=== PATIENT | male | born 1940 | race Caucasian/White ===

== ENCOUNTER → 2017-12-24 01:13 | Outpatient (CLI) | payer MEDICARE, OTHER, SELFPAY ==
--- NOTE | 2018-01-09 08:11 | ZIOP_ITS ---
ZIO PATCH MONITOR REPORT PRESCRIBING CLINICIAN Bere Mane M.D. ENROLLMENT December 24, 2017 until January 02, 2018 FINDINGS 1. Baseline sinus rhythm, 59-133 beats per minute, average 85 beats per minute. 2. Occasional PAC, 4.4%, frequent SVT runs, 215 total, fastest 203 beats per minute for 7 beats, longest 18 beats at 108 beats per minute. No AF. 3. Occasional PVC, 2.8%, no VT. 4. No significant pauses. 5. No symptoms recorded. Faith Bell M.D. DURGA/robert T - 01/09/2018
== END ==
PROVIDERS: PCP Physician Assistant Medical; Visit Provider Psychiatry & Neurology Neurology
DX: I47.1 Supraventricular tachycardia (principal); I49.1 Atrial premature depolarization; I49.3 Ventricular premature depolarization; I63.8 Other cerebral infarction
CPT/HCPCS: 0296T; 93225

== ENCOUNTER → 2018-01-08 15:25 | Outpatient (CLI) | payer MEDICARE, OTHER, SELFPAY | PROVIDERS: PCP Physician Assistant Medical; Visit Provider Internal Medicine Cardiovascular Disease | DX: I47.1 Supraventricular tachycardia (principal); I49.1 Atrial premature depolarization; I49.3 Ventricular premature depolarization; I63.8 Other cerebral infarction | CPT/HCPCS: 0298T ==

== ENCOUNTER 2018-03-13 18:45 | Emergency (ER) | payer MEDICARE, OTHER, SELFPAY ==
[2018-03-13] VITALS (17 sets, daily range): BP systolic 127–148; BP diastolic 66–104; PULSE 75–106; RESP 12–28; TEMP 36.9–37; O2SAT 95–100
--- NOTE | 2018-03-13 18:59 | DI.CT_ITS ---
SYMPTOMS/DIAGNOSIS: WEAKNESS, EMOTIONAL LABILITY, ? STROKE NONCONTRAST HEAD CT: Comparison is made with April,. No intracranial hemorrhage, mass or acute infarct is seen. There is no change in moderate atrophy and severe white matter changes of small vessel disease. Basal ganglia and lacunar infarcts are also unchanged. There is an air-fluid level in the right maxillary sinus. IMPRESSION: Right maxillary sinus disease. No acute intracranial abnormality.
[2018-03-13 19:16] LABS: BE (Venous) -0.6 mmol/L (-3-3); HCO3 (Venous) 24 mmol/L (22-28); O2 Sat (Venous) 96 % (70-80); TCO2 (Venous) 21 mmol/L (22-29); pCO2 (Venous) 38 mm/Hg (34-47); pH (Venous) 7.41 (7.32-7.43); pO2 (Venous) 76 mm/Hg (28-44)
--- NOTE | 2018-03-13 19:16 | ED.GENADUL_ITS ---
Discharge Plan Disposition Patient Disposition: HOME Condition: Good Discharge Details Chief Complaint: CVA/TIA Clinical Impression: Weakness, Acute dehydration Primary Care Provider: Kathy Cardoza ED Provider: Brendan Puga Home Meds and New Rx's Prescriptions: No Action bisoprolol fumarate 5 MG tablet 2.5 mg PO DAILY Qty: 30 RF: 11 clopidogrel [Plavix] 75 MG tablet 75 mg PO DAILY Qty: 30 RF: 0 Discharge Instructions Instructions: Weakness (ED) Additional Instructions: Please continue taking your Plavix and bisoprolol as directed. If you notice any worsening of your symptoms, or any new symptoms such as vomiting, diarrhea, fever, chills, shortness of breath, chest pain, numbness, weakness, or fainting , please return immediately to the emergency department for reevaluation. Please follow up with your primary care provider as soon as possible for reassessment and reevaluation. As always, it was a pleasure participating in your medical care today. Referrals: Kathy Cardoza PA [Primary Care Provider] - Medical Decision Making This is a 77-year-old male with a past medical history of stroke and TIA, who presents today with a friend for difficulty speaking, questionable weakness, and increased emotional lability. Patient does take a daily Plavix. He denies any falls or trauma. The exact onset of his initial symptoms is unknown. While the patient states that he feels absolutely fine, friends and people who live nearby state that his symptoms may have begun 24-48 hours ago, but some were noticing changes in his speech and movement 1-2 weeks ago. Currently the patient's physical exam is relatively benign. No focal neurologic deficits. Patient does appear slightly confused but he is a and O x4 , and demonstrates an NIH stroke scale of 0. Patient is clearly not a candidate for TPA due to the timing, and lack of current symptoms. We will perform laboratory workup to evaluate for any potential metabolic or ischemic etiology for symptoms. At this time though with a normal neurologic exam, the ability to perform his ADLs I do not see any current indication for inpatient management. EKG 18: 59 Rate 88, RI 156, QTc 421, QRS 98, sinus rhythm, no significant ST elevations or depressions, no T wave inversions, no Q waves. Normal EKG IMPRESSION: 1. No acute intracranial abnormality. 2. Global cerebral atrophy and probable small vessel disease, unchanged. 3. Old Basal ganglia lacunar infarcts and old left centrum semiovale infarct. 4. Fluid level within the right maxillary sinus which may be seen with acute sinusitis. 8:16 PM Patient's laboratory workup has returned, and there are no significant abnormalities noted. Normal white count, no significant electrolyte abnormalities, VBG demonstrates no evidence of CO2 retention. Calcium is normal. Troponin and EKG are benign as well as a TSH. Urinalysis shows no evidence of urinary tract infection. Mild dehydration is noted. Salicylates, UDS, and acetaminophen are normal. CT head does demonstrate evidence of chronic acute strokes, but no evidence of acute infarct. Patient's repeat neurologic exam continues to show no slurring of his speech, no focal neurologic deficits. Normal workup, no evidence of significant infection I do feel that he can be safely discharged home but does require close follow-up with his primary care provider. Patient does feel much better after some IV fluids. He is certainly regained his spark. He is on Plavix and I feel that he should continue this. Feel that his symptoms are most likely chronic in nature, and perhaps secondary to his chronic old strokes rather than an acute process. I discussed potential red flags for which to immediately return, as well as importance of close follow-up with PCP with both the patient and his friend who is at bedside. I have extensively reviewed the treatment plan and discharge instructions with the patient and their family. I have addressed all patient concerns at this time. The patient and family was made aware of what symptoms to monitor for that would warrant a return to the emergency department. Discussed the plan with the patient and family, they demonstrate verbal understanding and agreement with our assessment and plan at this time. HPI General Date/Time Provider Initiated Documentation: 03/13/18 18:58 . HPI Narrative: This is a 77-year-old male with past medical history of stroke, who takes bisoprolol and Plavix daily. Last stroke was slightly less than a year ago. Patient presents today with a friend for potential strokelike symptoms. Friend states that over the last 12-24 hours they have noticed that the patient has had slight increase in difficulty speaking, questionable generalized weakness, and significant increase in emotional lability. However the friend also states that over the last 1-2 weeks of their tenants that live around the patient have noticed similar symptoms for the patient. The exact timing for the onset for symptomatology is unknown. The patient states that he feels great, I do not think anything is wrong. I feel fine.The patient denies any symptoms of difficulty speaking, emotionality, weakness, or signs or symptoms concerning for stroke. He denies any chest pain , shortness of breath. The patient has no other complaints at this time. Patient denies any recent surgeries. Patient denies any pertinent family history. Patient denies any IV or illicit drug use. Related Data Home Medications Medication Instructions Recorded Confirmed clopidogrel [Plavix] 75 mg PO DAILY #30 tab 05/13/17 03/13/18 bisoprolol fumarate 2.5 mg PO DAILY #30 tab-cap 10/16/17 03/13/18 Previous Rx's Medication Instructions Recorded clopidogrel [Plavix] 75 mg PO DAILY #30 tab 05/13/17 bisoprolol fumarate 2.5 mg PO DAILY #30 tab-cap 10/16/17 Allergies Allergy/AdvReac Type Severity Reaction Status Date / Time Penicillins Allergy Severe per pcp Unverified 03/13/18 19:03 office atorvastatin calcium Allergy Unknown Unverified 03/13/18 19:03 [From Lipitor] aspirin AdvReac Intermediate Skin Rash Unverified 03/13/18 19:03 atenolol AdvReac Intermediate fatigue Unverified 03/13/18 19:03 General Stated Complaint: CVA/TIA LAUREANO: 2 Review of Systems Review of Systems All systems reviewed & are unremarkable except as noted in HPI and below PFSH Social History Smoking/Tobacco Use Status: Never Surgical History complex laceration of left upper extremity (01/19/16) Exam Narrative Exam Narrative: 1.Const: Well-nourished, Well-developed, appearing stated age 2.Eyes: PERRL, no conjunctival injection, and symmetrical lids. 3.ENT: Atraumatic external nose and ears. Moist MM. Neck: Symmetric, trachea midline, No thyromegaly. There is no evidence of raccoon eyes, vickers sign, CSF rhinorrhea, mastoid tenderness, cranial crepitus, hemotympanum, exophthalmos , or hyphema. 4.CVS: +S1/S2, No murmurs or gallops. Peripheral pulses 2+ and equal in all extremities. Brisk capillary refill in all extremities. 5.RESP: Unlabored respiratory effort. Clear to auscultation bilaterally. No wheezes rales or rhonchi 6.GI: Soft, Nontender/Nondistended, No hepatosplenomegaly. No guarding or rebound. 7.MSK: Normocephalic/Atraumatic, Extremities w/o deformity or ttp No cyanosis or clubbing, Normal movement of all extremities 8.Skin: Warm, Dry. No rashes or lesions. 9.Neuro: CN 2-12 tested and intact, patient is able to hold bilateral arms up for 5 seconds and there is no pronator drift, patient also holds legs up for 10 seconds bilaterally without any drop, sensation intact to light touch in hands and feet bilaterally. Cerebellar exam normal as tested by [id number], [id number], rapid alternating movements, fine finger movements. Visual james intact peripherally. Normal speech pattern and verbal understanding. 10.Psych: (AAO) x3. Appropriate mood and affect Course Vital Signs Temperature 36.9 C 03/13/18 18:48 Pulse 99 H 03/13/18 18:48 Respiratory Rate 21 03/13/18 18:48 Blood Pressure 141/89 H 03/13/18 18:48 Pulse Oximetry 100 03/13/18 18:48 Temperature 36.9 C 03/13/18 18:48 Temperature Source Skin 03/13/18 18:48 Pulse 99 H 18 18:48 Respiratory Rate 18 03/13/18 19:06 Respiratory Effort 03/13/18 19:06 Respiratory Depth Normal 03/13/18 19:06 Respiratory Pattern Normal 03/13/18 19:06 Blood Pressure 141/89 H 03/13/18 18:48 Blood Pressure Position Supine 03/13/18 18:48 Pulse Oximetry 100 03/13/18 18:48 Oxygen Delivery Method Room Air 03/13/18 18:48 Oxygen Flow Rate 0 03/13/18 18:48 Pain Level 0 03/13/18 18:48
[2018-03-13 19:17] LABS: Abs Immature Grans 0.01 k/cumm (0.0-0.09); Absolute Basophil Count 0.02 k/cumm (0.0-0.2); Absolute Eosinophil Count 0.11 k/cumm (0.0-0.7); Absolute Lymphocyte Count 1.03 k/cumm (1.2-3.4); Absolute Monocyte Count 0.75 k/cumm (0.11-0.7); Absolute Neutrophil Count 5.15 k/cumm (1.2-6.7); Basophils % 0.3; Eosinophils % 1.6; HCT 41.5 % (40.0-50.0); HGB 14.1 g/dL (13.5-17.5); Immature Grans % 0.1; Lymphocytes % 14.6; Mean Corpuscular Hemoglobin 30.3 pg (27.0-33.0); Mean Corpuscular Volume 89.2 fL (80-95); Mean Platelet Volume 12.3 fL (8.0-11.0); Monocytes % 10.6; Neutrophils % 72.8; Platelet Count 180 x1000/uL (130-400); RBC 4.65 m/cumm (4.50-6.00); RBC Distribution Width 13.7 % (11.8-14.1); White Blood Cell Count 7.07 k/cumm (4.4-10.8)
[2018-03-13 19:31] LABS: Ammonia 24 umol/L (11-32)
[2018-03-13 19:37] LABS: Tricyclic Antidepressants Negative (Negative)
[2018-03-13 19:37] LABS: PTT Activated 26.1 sec (21.0-31.4); Prothrombin Time 10.1 sec (9.3-10.8)
[2018-03-13 19:40] LABS: *AMPHETAMINES SCREEN URINE Negative (Negative); *BARBITURATES SCREEN URINE Negative (Negative); *BENZODIAZEPINES SCREEN URINE Negative (Negative); Cannabinoids THC Negative (Negative); Cocaine Screen,Urine Negative (Negative); METHADONE URINE SCREEN Negative (Negative); OPIATES URINE SCREEN Negative (Negative)
[2018-03-13 19:46] LABS: ALT 26 U/L (12-78); AST 20 U/L (15-37); Albumin 3.6 g/dL (3.4-5.0); Alkaline Phosphatase 111 U/L (46-116); Anion Gap 9.1 mmol/L (3-11); BUN 16 mg/dL (7-18); Bilirubin, Total 0.4 mg/dL (0.2-1.0); CO2 24.9 mmol/L (21.0-32.0); CREATININE 0.92 mg/dL (0.70-1.30); Calcium 8.5 mg/dL (8.5-10.1); Chloride 97 mmol/L (98-107); Glucose 108 mg/dL (70-100); Potassium 3.9 mmol/L (3.5-5.1); Sodium 131 mmol/L (136-145); TSH 2.58 uIU/mL (0.358-3.74); Total Protein 7.1 g/dL (6.4-8.2)
[2018-03-13 19:47] LABS: ETHANOL BLOOD < 3.0 mg/dL (<3); Troponin I < 0.02 ng/mL (0.00-0.06)
[2018-03-13] MEDS: Normal Saline 1,000 ML 1000 ML IV (19:47)
[2018-03-13 19:53] LABS: Salicylate < 2.8 mg/dL (2.8-20.0)
[2018-03-13 19:54] LABS: Bilirubin Negative (Negative); Blood Trace-lysed (Negative); Clarity Clear; Glucose Negative (Negative); Ketones Trace mg/dL (Negative); Leukocyte Esterase Negative (Negative); Nitrite Negative (Negative); Specific Gravity 1.025 (1.005-1.025); Urobilinogen 0.2 EU/dL (Up TO 0.2); pH 5.5 (5-8)
--- NOTE | 2018-03-13 20:03 | DI.VRAD_ITS ---
EXAM: CT Head Without Intravenous Contrast CLINICAL HISTORY: 77 years old, male; Signs and symptoms; Altered mental status/memory loss TECHNIQUE: Axial computed tomography images of the head/brain without intravenous contrast. Coronal and sagittal reformatted images were created and reviewed. COMPARISON: CT HEAD WITHOUT STROKE PROTOCOL 05/11/2017 9:37 AM FINDINGS: Brain: Severe global cerebral atrophy is present. There is marked diffuse heterogeneity of the white matter attenuation, consistent with severe chronic white matter ischemic changes. No CT scan evidence of acute stroke. Old bilateral basal ganglia lacunar infarcts and old left periventricular white matter infarct. No hemorrhage. Ventricles: Unremarkable. No ventriculomegaly. Bones/joints: Unremarkable. No acute fracture. Soft tissues: Unremarkable. Vasculature: Severe atherosclerotic calcification of the cavernous carotid arteries. Bilateral MCA atherosclerosis. Sinuses: Mucosal thickening and fluid level within the right maxillary sinus which may be seen with sinusitis. Mild mucosal thickening of the ethmoid sinuses. Mastoid air cells: Unremarkable as visualized. No mastoid effusion. IMPRESSION: 1. No acute intracranial abnormality. 2. Global cerebral atrophy and probable small vessel disease, unchanged. 3. Basal ganglia lacunar infarcts and old left centrum semiovale infarct. 4. Fluid level within the right maxillary sinus which may be seen with acute sinusitis. Dictated and Authenticated by: Sg Armando MD. Ordering:RODY VERDE MD
[2018-03-13 20:12] LABS: Acetaminophen < 2 ug/mL (10-30)
[2018-03-13 20:22] LABS: WBC 0-2 HPF (0-5)
[2018-03-13 20:23] LABS: Bacteria Rare HPF (Negative); C & S Indicated? No; Casts Negative LPF (Negative); Crystals Negative HPF (Negative); Epithelial Cells Rare HPF (Negative); Mucus Heavy (Negative); RBC 0-2 (0-2)
[2018-03-13 20:24] LABS: Other Cells Rare Yeast (Negative)
== END 2018-03-13 21:20 | disposition home or self-care (01) ==
PROVIDERS: Emergency Provider Student in an Organized Health Care Education/Training Program; PCP Physician Assistant Medical
DX: R53.1 Weakness (principal); E86.0 Dehydration; I10 Essential (primary) hypertension
CPT/HCPCS: 36415; 80053; 80307; 82805; 93005; 96360; 99285; 70450; 80320; 80329; 81003; 81015; 82140; 84443; 84484; 85025; 85610; 85730; 93010; 99284

== ENCOUNTER 2018-10-17 15:55 | Emergency (ER) | payer MEDICARE, OTHER, SELFPAY ==
[2018-10-17] VITALS (23 sets, daily range): BP systolic 156–188; BP diastolic 69–107; PULSE 62–95; RESP 12–28; TEMP 36.8; O2SAT 96–99
--- NOTE | 2018-10-17 16:02 | DI.CT_ITS ---
SYMPTOMS/DIAGNOSIS: RIGHTWARD SWAY, CONFUSED, ? STROKE CT BRAIN: Noncontrast examination. Comparison 03/13/18. There is cerebral atrophy consistent with the patient's age. There are areas of decreased attenuation in the white matter consistent with small vessel ischemic disease. There are lacunar infarcts in the basal ganglia and the left central semiovale again noted. Areas of decreased attenuation are again seen in the tariq. This may be artifactual. It appears to have been present on prior examination and may represent old infarcts. If there is concern for an acute infarct, an MRI may be considered. for further evaluation. No intracranial hemorrhage, acute midline shift or mass effect is identified. The calvarium is intact. Mild mucosal thickening is seen in the ethmoid air cells and sphenoid sinus. The mastoid air cells are well pneumatized. The calvarium is intact. IMPRESSION: 1. Cerebral atrophy and small vessel ischemic disease. If there is continued concern for an acute infarct, an MRI may be considered for further evaluation. 2. Slight prominence of the areas of decreased attenuation in the tariq since the prior examination. Please the above discussion for complete details. CT ANGIOGRAPHY OF THE HEAD AND NECK: CT angiography was performed with multi slice acquisition and multi planar and 3D reconstruction. Routine examination was performed. CT ANGIOGRAPHY OF THE NECK: The common carotid arteries show no significant stenosis, dissection or occlusion. On the right there is moderate calcific plaque seen from the carotid bulb extending into the proximal right internal carotid artery. There is less than 20% narrowing of the lumen noted. On the left there is a moderate amount of calcific plaque seen within the bulb and the proximal internal carotid artery with less than 30% narrowing of the lumen. No dissection or occlusion is identified. The external carotid arteries are unremarkable. The vertebral arteries are unremarkable. There is a dominant left vertebral artery. No evidence of dissection, occlusion or significant stenosis. Degenerative changes are seen throughout the cervical spine resulting in multi- level central spinal canal stenosis and neural foraminal stenosis. IMPRESSION: No hemodynamically significant stenosis in the cervical carotid arteries. CT ANGIOGRAPHY OF THE HEAD: There is calcific plaque seen in the cavernous portion of the internal carotid arteries bilaterally with narrowing of the supraclinoid portions of both internal carotid arteries, right greater than left. It appears less than 50%. The anterior cerebral arteries are unremarkable without evidence of aneurysm, occlusion or significant stenosis. The middle cerebral arteries are unremarkable without evidence of aneurysm, occlusion or significant stenosis. The posterior cerebral arteries are unremarkable without evidence of aneurysm, occlusion or significant stenosis. The basilar artery is unremarkable. No evidence of dissection, aneurysm, occlusion or significant stenosis. IMPRESSION: No acute abnormality.
[2018-10-17 16:15] LABS: Abs Immature Grans 0.01 k/cumm (0.0-0.09); Absolute Basophil Count 0.02 k/cumm (0.0-0.2); Absolute Lymphocyte Count 0.98 k/cumm (1.2-3.4); Absolute Monocyte Count 0.64 k/cumm (0.11-0.7); Absolute Neutrophil Count 4.09 k/cumm (1.2-6.7); Basophils % 0.3; Eosinophils % 1.7; HGB 14.6 g/dL (13.5-17.5); Immature Grans % 0.2; Lymphocytes % 16.8; Mean Corp. HGB Concentration 34.8 g/dL (32.0-36.0); Mean Corpuscular Hemoglobin 31.1 pg (27.0-33.0); Mean Corpuscular Volume 89.6 fL (80-95); Mean Platelet Volume 11.8 fL (8.0-11.0); Platelet Count 184 x1000/uL (130-400); RBC 4.69 m/cumm (4.50-6.00); RBC Distribution Width 13.6 % (11.8-14.1); White Blood Cell Count 5.84 k/cumm (4.4-10.8)
[2018-10-17 16:22] LABS: pCO2 (Venous) 42 mm/Hg (34-47); pH (Venous) 7.43 (7.32-7.43); pO2 (Venous) 51 mm/Hg (28-44)
[2018-10-17 16:23] LABS: BE (Venous) 3.3 mmol/L (-3-3); HCO3 (Venous) 28 mmol/L (22-28); O2 Sat (Venous) 88 % (70-80); TCO2 (Venous) 24 mmol/L (22-29)
[2018-10-17 16:31] LABS: PTT Activated 23.8 sec (21.0-31.4); Prothrombin Time 9.9 sec (9.3-11.0)
[2018-10-17] MEDS: Omnipaque 350 MG/ML 100 ML BTL IJ (16:32)
--- NOTE | 2018-10-17 16:59 | DI.VRAD_ITS ---
EXAM: CT Head Without Contrast EXAM DATE/TIME: 10/17/2018 4:05 PM CLINICAL HISTORY: 77 years old, male; Signs and symptoms; Altered mental status/memory loss; Confusion or disorientation TECHNIQUE: Imaging protocol: Axial computed tomography images of the head without contrast. Coronal and sagittal reformatted images were created and reviewed. COMPARISON: CT HEAD WO 03/13/2018 7:34 PM FINDINGS: Brain: The ventricles and cortical sulci aren't mildly more prominent than usual for age. There is very severe periventricular hypodensity extending diffusely throughout the centrum semiovale much worse than usual for age. There are multiple small lacunar infarcts in basal ganglia. In addition there is a 6 mm old lacunar infarct in the left periventricular white matter. There are multiple areas of hypodensity in the tariq that appears slightly more prominent than on 03/13/2018 although this area is prone to large amount of artifact from the Claire temporal bones. Bones/joints: Unremarkable. No acute fracture. Sinuses: There is minimal mucosal thickening in the right sphenoid sinus as well as in a few ethmoid air cells. Mastoid air cells: Visualized mastoid air cells are well aerated. No mastoid effusion. Soft tissues: Unremarkable. IMPRESSION: 1. Multiple small areas of ischemia in the tariq that appear to be slightly more prominent than in February 2018. There may be a small increase in size of the subacute or less likely new nonhemorrhagic infarct in the tariq. 2. Multiple old lacunar infarcts predominately basal ganglia. 3. Extremely severe chronic small vessel ischemic changes throughout the cerebral white matter Dictated and Authenticated by: Doe Martinez MD. Ordering:RODY Cardona MD
--- NOTE | 2018-10-17 17:10 | DI.VRAD_ITS ---
EXAM: CT Angiography Head With Contrast EXAM DATE/TIME: 10/17/2018 4:05 PM CLINICAL HISTORY: 77 years old, male; Signs and symptoms; Other: Confusion, rightward sway; Patient HX: CVA 11/2017 TECHNIQUE: Imaging protocol: Axial computed tomographic angiography images of the head with intravenous contrast using CT angiography protocol. Coronal and sagittal reformatted images were created and reviewed. 3D rendering: MIP reconstructed images were created and reviewed. COMPARISON: CTA BRAIN AND NECK 05/11/2017 10:39 AM FINDINGS: Right internal carotid artery: Unremarkable. Intracranial segment is patent with no significant stenosis. No aneurysm. Right anterior cerebral artery: Unremarkable. No occlusion or significant stenosis. No aneurysm. Right middle cerebral artery: Unremarkable. No occlusion or significant stenosis. No aneurysm. Right posterior cerebral artery: Unremarkable. No occlusion or significant stenosis. No aneurysm. Right vertebral artery: Unremarkable. No occlusion or significant stenosis. No aneurysm. Left internal carotid artery: Unremarkable. Intracranial segment is patent with no significant stenosis. No aneurysm. Left anterior cerebral artery: Unremarkable. No occlusion or significant stenosis. No aneurysm. Left middle cerebral artery: Unremarkable. No occlusion or significant stenosis. No aneurysm. Left posterior cerebral artery: Unremarkable. No occlusion or significant stenosis. No aneurysm. Left vertebral artery: Unremarkable. No occlusion or significant stenosis. No aneurysm. Basilar artery: Unremarkable. No occlusion or significant stenosis. No aneurysm. The anterior to indicating artery as well as both the right left posterior to indicating arteries are patent. IMPRESSION: No acute findings. EXAM: CT Angiography Neck With Contrast EXAM DATE/TIME: 10/17/2018 4:05 PM CLINICAL HISTORY: 77 years old, male; Signs and symptoms; Other: Confusion, rightward sway; Patient HX: CVA 11/2017 TECHNIQUE: Imaging protocol: Axial computed tomographic angiography images of the neck with intravenous contrast using CT angiography protocol. Coronal and sagittal reformatted images were created and reviewed. 3D rendering: MIP reconstructed images were created and reviewed. COMPARISON: CTA BRAIN AND NECK 05/11/2017 10:39 AM FINDINGS: VASCULATURE: Right common carotid artery: Normal. No stenosis. No dissection or occlusion. Right internal carotid artery: There is a moderate amount of calcified plaque extending from the inner aspect of the right carotid bulb into the proximal right internal carotid artery but this is causing only approximately 20% stenosis. There is minimal stenosis of the origin of the right external carotid artery. Right external carotid artery: See Right Internal Carotid Artery Finding. Right vertebral artery: Normal. No stenosis. No dissection or occlusion. Left common carotid artery: Normal. No stenosis. No dissection or occlusion. Left internal carotid artery: There is a moderate amount of calcified plaque predominantly an air aspect of the left carotid bulb causing approximately 30% stenosis. This extends to a slight extent left internal carotid artery is probably 25% stenosis. There is no significant stenosis of the left external carotid artery. Left external carotid artery: See Left Internal Carotid Artery Finding. Left vertebral artery: There is a dominant left vertebral artery. NECK: Bones/joints: No acute fracture or subluxation. There are severe multilevel discogenic disease in the mid and lower cervical spine with moderate stenosis the spinal canal at C5-6 as well as severe stenosis of the right neural foramen. There is also prominent degenerative changes at C6-7 show slightly less severe level Soft tissues: Normal. No significant soft tissue swelling. IMPRESSION: 1. No hemodynamic significant stenosis 2. Mildly severe degenerative changes in lower cervical spine COMMENT: Reference per NASCET criteria for degree of stenosis: Mild: less than 50% stenosis. Moderate: 50-69% stenosis. Severe: 70-94% stenosis. Near occlusion: 95-99% stenosis. Dictated and Authenticated by: Doe Martinez MD. Ordering:RODY Cardona MD
--- NOTE | 2018-10-17 17:16 | W.ED.GENAD ---
Discharge Plan Disposition Patient Disposition: [facility] Condition: Stable Discharge Details Chief Complaint: Dizzy/Sync Clinical Impression: Stroke, Acute hyponatremia Primary Care Provider: Kathy Cardoza ED Provider: Brendan Puga Home Meds and New Rx's Prescriptions: No Action clopidogrel [Plavix] 75 MG tablet 75 mg PO DAILY Qty: 30 RF: 0 amlodipine 5 mg Tablet 5 mg PO DAILY RF: 0 ibuprofen 600 mg Tablet 600 mg PO TID PRNRF: 0 Medical Decision Making This is a 77-year-old male with a past medical history of stroke for which he takes Plavix who presents today for evaluation of stroke. Last known well was 1:30 PM. Patient arrived to the ER at 4 PM. Family had called when the patient had been complaining of some dizziness and weakness while out in the field, however upon their inspection of him he was notably ataxic, and weak. Exam here demonstrates a significant gait ataxia, questionable left lower extremity weakness when compared to the right although it is mild. Significant concern for cerebellar infarct. CT scan was ordered and demonstrates evidence of enhancing lesions in the tariq more so now than in the past, concerning for an acute infarct. This would correlate well with his symptoms. The patient is around the therapeutic range of TPA, I did discuss risks and benefits of TPA with both the patient and his daughter. Through shared decision making process understanding the risks and benefits, both the patient and his daughter would like to hold off on any TPA at this time. With the patient's current Plavix use, low NIH score, I do feel that this is reasonable, however certainly does have some inherent risk by holding off the TPA. Family and patient both understand this risk, and verbalized understanding. I did contact [facility] and discussed the case with Dr. Estevez of neurology regarding the patient's situation, request, wishes, current clinical scenario. Dr. Estevez does agree with the importance of admission and intensive neurology management. Patient will be transferred to [facility] for further management. Neurology does recommend holding off on any heparinization or any other additional medications at this time. Of note the patient's sodium is slightly low at 126, however I do not feel that this is acutely associated with the patient's symptoms. We will give gentle saline bolus for hydration here. The remainder of his laboratory work-up is otherwise benign. I have extensively reviewed the treatment plan and discharge instructions with the patient. I have addressed all patient concerns at this time. The patient was made aware of what symptoms to monitor for that would warrant a return to the emergency department. Discussed the plan with the patient, they demonstrate verbal understanding and agreement with our assessment and plan at this time. At time of transfer the patient was reassessed and continued to demonstrate current medical stability. No signs of acute respiratory distress requiring intubation, hemodynamic instability requiring pressor support, or rapidly declining mental status. The patient is stable for transport. EKG 16: 00 Rate 85, intervals normal, sinus rhythm, no significant ST elevations or depressions. No significant T wave inversions or Q waves. EXAM: CT Angiography Head With Contrast EXAM DATE/TIME: 10/17/2018 4:05 PM CLINICAL HISTORY: 77 years old, male; Signs and symptoms; Other: Confusion, rightward sway; Patient HX: CVA 11/2017 TECHNIQUE: Imaging protocol: Axial computed tomographic angiography images of the head with intravenous contrast using CT angiography protocol. Coronal and sagittal reformatted images were created and reviewed. 3D rendering: MIP reconstructed images were created and reviewed. COMPARISON: CTA BRAIN AND NECK 05/11/2017 10:39 AM FINDINGS: Right internal carotid artery: Unremarkable. Intracranial segment is patent with no significant stenosis. No aneurysm. Right anterior cerebral artery: Unremarkable. No occlusion or significant stenosis. No aneurysm. Right middle cerebral artery: Unremarkable. No occlusion or significant stenosis. No aneurysm. Right posterior cerebral artery: Unremarkable. No occlusion or significant stenosis. No aneurysm. Right vertebral artery: Unremarkable. No occlusion or significant stenosis. No aneurysm. Left internal carotid artery: Unremarkable. Intracranial segment is patent with no significant stenosis. No aneurysm. Left anterior cerebral artery: Unremarkable. No occlusion or significant stenosis. No aneurysm. Left middle cerebral artery: Unremarkable. No occlusion or significant stenosis. No aneurysm. Left posterior cerebral artery: Unremarkable. No occlusion or significant stenosis. No aneurysm. Left vertebral artery: Unremarkable. No occlusion or significant stenosis. No aneurysm. Basilar artery: Unremarkable. No occlusion or significant stenosis. No aneurysm. The anterior to indicating artery as well as both the right left posterior to indicating arteries are patent. IMPRESSION: No acute findings. EXAM: CT Angiography Neck With Contrast EXAM DATE/TIME: 10/17/2018 4:05 PM CLINICAL HISTORY: 77 years old, male; Signs and symptoms; Other: Confusion, rightward sway; Patient HX: CVA 11/2017 TECHNIQUE: Imaging protocol: Axial computed tomographic angiography images of the neck with intravenous contrast using CT angiography protocol. Coronal and sagittal reformatted images were created and reviewed. 3D rendering: MIP reconstructed images were created and reviewed. COMPARISON: CTA BRAIN AND NECK 05/11/2017 10:39 AM FINDINGS: VASCULATURE: Right common carotid artery: Normal. No stenosis. No dissection or occlusion. Right internal carotid artery: There is a moderate amount of calcified plaque extending from the inner aspect of the right carotid bulb into the proximal right internal carotid artery but this is causing only approximately 20% stenosis. There is minimal stenosis of the origin of the right external carotid artery. Right external carotid artery: See Right Internal Carotid Artery Finding. Right vertebral artery: Normal. No stenosis. No dissection or occlusion. Left common carotid artery: Normal. No stenosis. No dissection or occlusion. Left internal carotid artery: There is a moderate amount of calcified plaque predominantly an air aspect of the left carotid bulb causing approximately 30% stenosis. This extends to a slight extent left internal carotid artery is probably 25% stenosis. There is no significant stenosis of the left external carotid artery. Left external carotid artery: See Left Internal Carotid Artery Finding. Left vertebral artery: There is a dominant left vertebral artery. NECK: Bones/joints: No acute fracture or subluxation. There are severe multilevel discogenic disease in the mid and lower cervical spine with moderate stenosis the spinal canal at C5-6 as well as severe stenosis of the right neural foramen. There is also prominent degenerative changes at C6-7 show slightly less severe level Soft tissues: Normal. No significant soft tissue swelling. IMPRESSION: 1. No hemodynamic significant stenosis 2. Mildly severe degenerative changes in lower cervical spine COMMENT: Reference per NASCET criteria for degree of stenosis: Mild: less than 50% stenosis. Moderate: 50-69% stenosis. Severe: 70-94% stenosis. Near occlusion: 95-99% stenosis. Dictated and Authenticated by: Doe Martinez MD. Ordering:RODY Cardona MD CLINICAL HISTORY: 77 years old, male; Signs and symptoms; Altered mental status/memory loss; Confusion or disorientation Technique: Imaging protocol: Axial computed tomography images of the head without contrast. Coronal and sagittal reformatted images were created and reviewed. Comparison: CT HEAD WO 03/13/2018 7:34 PM Findings: Brain: The ventricles and cortical sulci aren't mildly more prominent than usual for age. There is very severe periventricular hypodensity extending diffusely throughout the centrum semiovale much worse than usual for age. There are multiple small lacunar infarcts in basal ganglia. In addition there is a 6 mm old lacunar infarct in the left periventricular white matter. There are multiple areas of hypodensity in the tariq that appears slightly more prominent than on 03/13/2018 although this area is prone to large amount of artifact from the Claire temporal bones. Bones/joints: Unremarkable. No acute fracture. Sinuses: There is minimal mucosal thickening in the right sphenoid sinus as well as in a few ethmoid air cells. Mastoid air cells: Visualized mastoid air cells are well aerated. No mastoid effusion. Soft tissues: Unremarkable. Impression: 1. Multiple small areas of ischemia in the tariq that appear to be slightly more prominent than in February 2018. There may be a small increase in size of the subacute or less likely new nonhemorrhagic infarct in the tariq. 2. Multiple old lacunar infarcts predominately basal ganglia. 3. Extremely severe chronic small vessel ischemic changes throughout the cerebral white matter Dictated and Authenticated by: Doe Martinez MD. Ordering:RODY Cardona MD HPI General Date/Time Provider Initiated Documentation: 10/17/18 16:02. HPI Narrative: This is a 77-year-old male with a past medical history of a stroke 1 year ago, chronically on Plavix now as well as amlodipine. He presents today for evaluation of strokelike symptoms. Last known well was 1:30 PM. Roughly 1 hour prior to arrival the family called EMS because the patient had come in from the field and had been complaining of dizziness weakness and imbalance. Patient denies any headache, chest pain, or shortness of breath. There was concern for the stroke as the patient was notably leaning to the right hand side, with mild to moderate ataxia. EMS Accu-Chek was within normal limits. Patient has no other complaints at this time. The patient denies any focal trauma. He denies any other complaints at this time. Related Data Home Medications Medication Instructions Recorded Confirmed clopidogrel [Plavix] 75 mg PO DAILY #30 tab 05/13/17 10/17/18 amlodipine 5 mg PO DAILY 10/17/18 10/17/18 ibuprofen 600 mg PO TID PRN 10/17/18 10/17/18 Previous Rx's Medication Instructions Recorded clopidogrel [Plavix] 75 mg PO DAILY #30 tab 05/13/17 Allergies Allergy/AdvReac Type Severity Reaction Status Date / Time Penicillins Allergy Severe per pcp Unverified 03/13/18 19:03 office atorvastatin calcium Allergy Unknown Unverified 03/13/18 19:03 [From Lipitor] aspirin AdvReac Intermediate Skin Rash Unverified 03/13/18 19:03 atenolol AdvReac Intermediate fatigue Unverified 03/13/18 19:03 General Stated Complaint: Dizzy/Sync LAUREANO: 2 Review of Systems Review of Systems All systems reviewed & are unremarkable except as noted in HPI and below PFSH Surgical History complex laceration of left upper extremity (01/19/16) Social History Smoking/Tobacco Use Status: Never Drug use: Never Do you feel safe in your relationship?: Yes Exam Narrative Exam Narrative: 1.Const: Well-nourished, Well-developed, appearing stated age 2.Eyes: PERRL, no conjunctival injection, and symmetrical lids. 3.ENT: Atraumatic external nose and ears. Moist MM. Neck: Symmetric, trachea midline, No thyromegaly. 4.CVS: +S1/S2, No murmurs or gallops. Peripheral pulses 2+ and equal in all extremities. Brisk capillary refill in all extremities. 5.RESP: Unlabored respiratory effort. Clear to auscultation bilaterally. No wheezes rales or rhonchi 6.GI: Soft, Nontender/Nondistended, No hepatosplenomegaly. No guarding or rebound. 7.MSK: Normocephalic/Atraumatic, Extremities w/o deformity or ttp No cyanosis or clubbing, Normal movement of all extremities. 8.Skin: Warm, Dry. No rashes or lesions. 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 Sensation grossly intact, no focal neurologic deficits. All 6 cardinal planes of vision are fully intact. No evidence of rotatory or vertical nystagmus. The patient demonstrated a normal [id number], good dexterity. There was no evidence of dysdiadochokinesia. Patient had difficulty performing yooi-yo-ccal test, additionally he is notably ataxic with a wide-based gait, and a notable skew to the right. He is significantly imbalance. Sensation was intact bilaterally as well as muscle strength bilaterally for all extremities, but there is questionable decreased strength for the left lower extremity however strength is still 5 out of 5. Patient was able to verbalize butter cup with no slurring, or miss pronunciation. NIH stroke scale is 1-2 secondary to questionable minimal decreased strength for the left lower extremity, as well as questionable ueyu-ow-[id number] difficulty. 10.Psych: (AAO) x3. Appropriate mood and affect Course Vital Signs Temperature 36.8 C 10/17/18 15:59 Pulse 95 H 10/17/18 15:59 Respiratory Rate 16 10/17/18 15:59 Blood Pressure 168/69 H 10/17/18 15:59 Pulse Oximetry 97 10/17/18 15:59 Temperature 36.8 C 10/17/18 15:59 Temperature Source Temporal Artery Scan 10/17/18 15:59 Pulse 95 H 10/17/18 15:59 Respiratory Rate 16 10/17/18 15:59 Respiratory Effort 10/17/18 16:10 Respiratory Depth Normal 10/17/18 16:10 Blood Pressure 168/69 H 10/17/18 15:59 Blood Pressure Position Sitting 10/17/18 15:59 Pulse Oximetry 97 10/17/18 15:59 Oxygen Delivery Method Room Air 10/17/18 15:59 Oxygen Flow Rate 0 10/17/18 15:59 Lab/Test Results Lab/Test Results: Laboratory Tests Range/Units 10/17/18 10/17/18 10/17/18 16:06 16:06 16:06 WBC (4.4-10.8) k/cumm 5.84 RBC (4.50-6.00) m/cumm 4.69 Hgb (13.5-17.5) g/dL 14.6 Hct (40.0-50.0) % 42.0 MCV (80-95) fL 89.6 MCH (27.0-33.0) pg 31.1 MCHC (32.0-36.0) g/dL 34.8 RDW (11.8-14.1) % 13.6 Plt Count (130-400) x1000/uL 184 MPV (8.0-11.0) fL 11.8 H Immature Gran % 0.2 Neutrophils % 70.0 Lymphocytes % 16.8 Monocytes % 11.0 Eosinophils % 1.7 Basophils % 0.3 Absolute Neutrophils (1.2-6.7) k/cumm 4.09 Absolute Lymphocytes (1.2-3.4) k/cumm 0.98 L Absolute Monocytes (0.11-0.7) k/cumm 0.64 Absolute Eosinophils (0.0-0.7) k/cumm 0.10 Absolute Basophils (0.0-0.2) k/cumm 0.02 PT (9.3-11.0) sec 9.9 INR (0.9-1.1) 1.0 APTT (21.0-31.4) sec 23.8 VBG pH (7.32-7.43) 7.43 VBG pCO2 (34-47) mm/Hg 42 VBG pO2 (28-44) mm/Hg 51 H VBG HCO3 (22-28) mmol/L 28 VBG Total CO2 (22-29) mmol/L 24 VBG O2 Saturation (70-80) % 88 H VBG Base Excess (-3-3) mmol/L 3.3 H
[2018-10-17 17:52] LABS: ALT 23 U/L (12-78); AST 17 U/L (15-37); Albumin 3.6 g/dL (3.4-5.0); Alkaline Phosphatase 96 U/L (46-116); Anion Gap 7.1 mmol/L (3-11); BUN 14 mg/dL (7-18); Bilirubin, Total 0.6 mg/dL (0.2-1.0); CO2 26.9 mmol/L (21.0-32.0); CREATININE 0.83 mg/dL (0.70-1.30); Calcium 8.8 mg/dL (8.5-10.1); Chloride 92 mmol/L (98-107); Glucose 100 mg/dL (70-100); Potassium 4.2 mmol/L (3.5-5.1); Sodium 126 mmol/L (136-145); Total Protein 6.8 g/dL (6.4-8.2)
[2018-10-17 17:53] LABS: ETHANOL BLOOD < 3.0 mg/dL (<3)
[2018-10-17 17:54] LABS: Troponin I < 0.02 ng/mL (0.00-0.06)
[2018-10-17 17:58] LABS: Ammonia < 10 umol/L (11-32)
[2018-10-17] MEDS: Calcium Carbonate *TUMS* 500 MG CHEW (18:00)
[2018-10-17] MEDS: Normal Saline 1,000 ML 1000 ML IV (19:22)
== END 2018-10-17 20:24 | disposition short-term general hospital (02) ==
PROVIDERS: Emergency Provider Student in an Organized Health Care Education/Training Program; PCP Physician Assistant Medical
DX: I63.9 Cerebral infarction, unspecified (principal); E87.1 Hypo-osmolality and hyponatremia; R27.8 Other lack of coordination; Z79.02 Long term (current) use of antithrombotics/antiplatelets; R40.2412 Glasgow coma scale score 13-15, at arrival to emergency department; R90.89 Other abnormal findings on diagnostic imaging of central nervous system
CPT/HCPCS: 36415; 70496; 70498; 80053; 82805; 93005; 99285; 70450; 80320; 82140; 84484; 85025; 85610; 85730; 93010; J3490

== ENCOUNTER 2018-10-30 12:25 | Outpatient (REF) | payer MEDICARE, OTHER, SELFPAY ==
[2018-10-30 19:29] LABS: Anion Gap 10.1 mmol/L (3-11); BUN 10 mg/dL (7-18); CO2 24.9 mmol/L (21.0-32.0); CREATININE 0.69 mg/dL (0.70-1.30); Calcium 8.9 mg/dL (8.5-10.1); Chloride 93 mmol/L (98-107); Glucose 83 mg/dL (70-100); Potassium 4.5 mmol/L (3.5-5.1); Sodium 128 mmol/L (136-145)
[2018-11-02 09:36] LABS: PSA, Diagnostic 0.6 ng/ml (0-6.5)
== END 2018-10-30 12:45 ==
LOC: NCHCN 12:25
PROVIDERS: PCP Physician Assistant Medical; Visit Provider Physician Assistant Medical
DX: R32 Unspecified urinary incontinence (principal)
CPT/HCPCS: 80048; 84153

== ENCOUNTER 2018-11-19 01:01 | Outpatient (CLI) | payer MEDICARE, OTHER, SELFPAY ==
--- NOTE | 2018-11-19 10:45 | DI.US_ITS ---
SYMPTOM/DIAGNOSIS: URINARY INCONTINENCE R32 RENAL ULTRASOUND: 11/19 The kidneys are normal in size and shape. There is a 4 cm in greatest diameter simple cyst of the inferior pole of the right kidney. This has a somewhat bi-lobed appearance and could represent a septated cyst. No solid mass identified. No evidence of nephrolithiasis or hydronephrosis. Urinary bladder is unremarkable in appearance with pre and post void urinary bladder volume measurements 85 cc and 35 cc respectively. Prostatic volume estimated at 30 cc. CONCLUSION: Negative renal ultrasound.
== END 2018-11-19 01:21 ==
PROVIDERS: PCP Physician Assistant Medical; Visit Provider Physician Assistant Medical
DX: R32 Unspecified urinary incontinence (principal); N28.1 Cyst of kidney, acquired
CPT/HCPCS: 76770

== ENCOUNTER 2018-11-27 19:57 | Outpatient (REF) | payer MEDICARE, OTHER, SELFPAY ==
[2018-11-27 19:19] LABS: BUN 12 mg/dL (7-18); CREATININE 0.76 mg/dL (0.70-1.30); Calcium 8.5 mg/dL (8.5-10.1); Chloride 96 mmol/L (98-107); Glucose 113 mg/dL (70-100); Potassium 4.3 mmol/L (3.5-5.1); Sodium 131 mmol/L (136-145)
== END 2018-11-27 20:17 ==
LOC: NCHCN 19:57
PROVIDERS: PCP Physician Assistant Medical; Visit Provider Physician Assistant Medical
DX: E87.1 Hypo-osmolality and hyponatremia (principal)
CPT/HCPCS: 80048

== ENCOUNTER 2018-12-08 11:18 | Outpatient (REF) | payer MEDICARE, SELFPAY ==
[2018-12-10 12:41] LABS: Sodium, Urine 53 mmol/L
[2018-12-10 12:42] LABS: CLEAVED CELLS 68 mmol/24h (40-220); Total Volume 1275 ml
== END 2018-12-08 11:38 ==
LOC: NCHCN 11:18
PROVIDERS: PCP Physician Assistant Medical; Visit Provider Physician Assistant Medical
DX: E87.1 Hypo-osmolality and hyponatremia (principal)
CPT/HCPCS: 81050; 84300

== ENCOUNTER 2019-02-08 11:38 | Emergency (ER) | payer MEDICARE, SELFPAY ==
[2019-02-08 11:40] VITALS: BP 123/89; PULSE 102; RESP 20; TEMP 36.9; O2SAT 96
--- NOTE | 2019-02-08 12:04 | DI.RAD_ITS ---
SYMPTOMS/DIAGNOSIS: COUGH PA AND LATERAL CHEST: There is a density in the left upper lobe which probably represents superimposition of bony and soft tissue structures. The lung is otherwise unremarkable. There is no pleural effusion. The cardiovascular structures are intact. SUMMARY: A questionable abnormality in the left upper lobe is demonstrated as noted above. Further assessment with chest CT could be obtained.
--- NOTE | 2019-02-08 12:05 | ED.GENADUL_ITS ---
Discharge Plan Disposition Patient Disposition: HOME Condition: Improving Discharge Details Chief Complaint: RespSymp Clinical Impression: Bronchitis, Incidental pulmonary nodule Primary Care Provider: Kathy Cardoza ED Provider: Juan Antonio Simpson Home Meds and New Rx's Prescriptions: New prednisone 20 mg tablet 40 mg PO DAILY Qty: 4 RF: 0 albuterol sulfate 90 mcg/actuation HFA aerosol inhaler 2 puff IH Q6H PRN (Reason: wheezing) Qty: 8.5 RF: 0 No Action clopidogrel [Plavix] 75 MG tablet 75 mg PO DAILY Qty: 30 RF: 0 amlodipine 5 mg Tablet 5 mg PO DAILY RF: 0 ibuprofen 600 mg Tablet 600 mg PO TID PRNRF: 0 Discharge Instructions Instructions: Acute Bronchitis (ED) Additional Instructions: An incidental pulmonary nodule was noted on your CT scan: Follow-up surveillance with repeat chest CT in six to twelve months is recommended. Be sure to discuss this with your primary care physician. Drink plenty of clear fluids to stay hydrated. Use prednisone as prescribed. Please be sure to rest over the next few days. Follow-up with your primary care doctor tomorrow as scheduled tomorrow. Return to the ER immediately for any worsening or concerns sooner if needed or for any alarming symptoms sooner if needed. Referrals: Kathy Cardoza PA [Primary Care Provider] - Discharge Data Discharge Date/Time-TO BE ENTERED AT DEPARTURE: 02/08/19 17:41 Medical Decision Making <RANDI Maldonado - Last Filed: 02/09/19 10:59> 1336 - I Spoke with radiologist who reports question of a mass in the left upper lobe and is requesting CT for further characterization. SUMMARY: A questionable abnormality in the left upper lobe is demonstrated as noted above. Further assessment with chest CT could be obtained. 1520 -CT angios unremarkable for any obvious pneumonia or pulmonary embolism. There is no appreciable mass noted on the CT per the radiologist there is a pulmonary nodule noted to be 6 mm recommended outpatient follow-up in [address] scan. At this time clinically the patient is looking improved. My attending also evaluated the patient at the bedside recommended a third DuoNeb although breath sounds are improved at this time. Dr. Annabel Simpson also reviewed patient's ECG both old and current which revealed sinus rhythm with PACs without obvious A. fib or ischemic pattern. Unchanged compared to previous. Recommended after third DuoNeb ambulating oxygen, and discharge if feeling well at that time. Patient does have a follow-up appointment tomorrow with his PCP. Ambulating O2 maintained at 96%. Patient was noted to be tachycardic when ambulating. Will give 500 cc bolus and reevaluate. Patient did recently receive nebulizer treatment which could be contributing to the tachycardia when ambulating. Pending troponin. Signed out. <Juan Antonio Simpson MD - Last Filed: 02/15/19 16:28> Care signed out by RANDI Ramos with plan to follow-up on delta troponin and reassess the patient for disposition. Initial troponin negative, repeat delta troponin negative and unchanged from prior. CT of the chest was interpreted by radiology: No left upper lobe mass is apparent. There is a 6 mm right upper lobe pleural-based nodule. There is no evidence of pulmonary embolic disease. Follow-up surveillance of this patient with a repeat chest CT in six to twelve months is recommended. Labs reviewed and nondiagnostic. Patient was reassessed and noted to have elevated heart rate with ambulation per nursing. He was given an IV fluid bolus of 500 mL and reassessed and heart rate improved. Patient feeling much better and requesting discharge. Lung auscultation clear. Suspect viral URI with reactive airway disease. Plan to continue patient on prednisone and will give albuterol inhaler and spacer. Patient has follow-up scheduled with his PCP tomorrow which I encouraged him to keep. Disposition decision was made weighing the risks and benefits of hospitalization versus outpatient treatment, the risk for further decompensation, and the patient's wishes. The patient was stable and requested discharge. Prior to discharge, my usual and customary return precautions were reviewed with the patient - this included follow-up instructions and reason to return to the emergency department if condition worsens, does not improve as expected, or other new concerns arise. <Olu Hayes MD - Last Filed: 02/08/19 17:23> Pt not seen by me, please see provider notes. HPI <RANDI Maldonado - Last Filed: 02/09/19 10:59> General Date/Time Provider Initiated Documentation: 02/08/19 11:53 . HPI Narrative: Patient presents for complaints of cough and increased respiratory effort for the last 2 days associated with wheezing. Accompanied by granddaughter who checks in on patient daily and reports in the last 2 days noted increase in symptoms. Onset of nasal congestion and cough 2 days ago. Denies fever or chills. Does report mild fatigue. He is eating and drinking without difficulty. No changes in his bowels. Denies abdominal pain. Denies chest pain. Denies back pain. Denies cardiac history. Denies exertional chest pain. Denies any other concerns or complaints at this time. Related Data Home Medications Medication Instructions Recorded Confirmed clopidogrel [Plavix] 75 mg PO DAILY #30 tab 05/13/17 02/08/19 amlodipine 5 mg PO DAILY 10/17/18 10/17/18 ibuprofen 600 mg PO TID PRN 10/17/18 10/17/18 albuterol sulfate 2 puff IH Q6H PRN #8.5 gm 02/08/19 prednisone 40 mg PO DAILY #4 tab 02/08/19 Previous Rx's Medication Instructions Recorded clopidogrel [Plavix] 75 mg PO DAILY #30 tab 05/13/17 albuterol sulfate 2 puff IH Q6H PRN #8.5 gm 02/08/19 prednisone 40 mg PO DAILY #4 tab 02/08/19 Allergies Allergy/AdvReac Type Severity Reaction Status Date / Time Penicillins Allergy Severe per pcp Unverified 02/08/19 11:50 office aspirin AdvReac Intermediate Skin Rash Unverified 02/08/19 11:50 atenolol AdvReac Intermediate fatigue Unverified 02/08/19 11:50 atorvastatin calcium AdvReac Mild itch Unverified 02/08/19 11:50 [From Lipitor] General Stated Complaint: RespSymp LAUREANO: 3 Review of Systems <RANDI Maldonado - Last Filed: 02/09/19 10:59> Review of Systems Narrative: CONSTITUTIONAL: The patient denies fevers, chills. EYES: Denies vision changes, blurry vision, or eye pain. ENT: Denies hearing changes, tinnitus, vertigo, sore throat. CARDIAC: Denies chest pain. Mild shortness of breath present. RESPIRATORY: Cough with sputum production present. denies difficulty breathing. Wheezing present GASTROINTESTINAL: Denies abdominal pain, changes in bowel, vomiting or nausea. GENITOURINARY: Denies dysuria, or frequency of urination. MUSCULOSKELETAL: Denies Joint pain, gait changes. NEUROLOGIC: Denies headaches, Denies focal weakness. Denies numbness. INTEGUMENT: Denies rashes. PSYCHIATRIC: Denies behavior changes. Denies anxiety or depression. ENDOCRINOLOGY: Denies fatigue. PSYCHIATRY: Denies depression, agitation or anxiety PFSH <RANDI Maldonado - Last Filed: 02/09/19 10:59> Surgical History (Updated 02/09/16 @ 11:06 by Gloria Lundy) complex laceration of left upper extremity (01/19/16) Social History Smoking/Tobacco Use Status: Never Alcohol Intake: former Drug use: Never Details: no alcohol for 30 yrs Do you feel safe at home: Yes Do you feel safe in your relationship?: Yes Exam <RANDI Maldonado - Last Filed: 02/09/19 10:59> Narrative Exam Narrative: CONST: Healthy appearing patient, in no acute distress. Well hydrated. Alert and alert. HENMT: Head nomocephalic, normal to inspection. Atraumatic. Hearing grossly normal. External ear canal no erythema or swelling. TM obscured by wax bilaterally. Nose normal to inspection. No rhinnorhea. Normal facial exam. Oral mucosa normal. Tounge normal. Dentition normal. Erythema posterior oropharynx. Uvula midline. EYES: General normal appearance. Alignment normal. Eyelids normal. Conjunctiva normal. Sclera normal. PERRL. NECK: Normal visual inspection. FROM. No lymphadenopathy. Trachea midline. No Midline tenderness. CHEST: Normal insepection of the chest. RESP: Speaking full sentences. Wheezing diffuse. Mild increase in respiratory effort. No retractions. Breath sound equal and present bilaterally. CARDIO: No JVD. Normal PMI. Regular Rate. Regular Rhythm. Normal peripheral pulses. GI: Normal inspection of abdomen. No distension. Soft. Nontender. Bowel sounds present in all 4 quadrants. No rebound. No gaurding. MUSCULOSKELETAL: Normal Gait. FROM of all extremities. Distal neurovascularly intact. Sensation intact distally. SKIN: Normal. Dry. No rashes. NEURO: Alert and awake. Speech clear. PSYCH: Normal affect. Cooperative. Course <RANDI Maldonado - Last Filed: 02/09/19 10:59> Vital Signs Vital signs: Vital Signs Temperature 36.9 C 02/08/19 11:40 Pulse 102 H 02/08/19 11:40 Respiratory Rate 20 02/08/19 11:40 Blood Pressure 123/89 02/08/19 11:40 Pulse Oximetry 96 02/08/19 11:40 Temperature 36.9 C 02/08/19 11:40 Temperature Source Tympanic 02/08/19 11:40 Pulse 102 H 02/08/19 11:40 Respiratory Rate 20 02/08/19 11:40 Respiratory Effort 02/08/19 11:54 Respiratory Depth Normal 02/08/19 11:54 Blood Pressure 123/89 02/08/19 11:40 Blood Pressure Position Sitting 02/08/19 11:40 Pulse Oximetry 96 02/08/19 11:40 Oxygen Delivery Method Room Air 02/08/19 11:40 Oxygen Flow Rate 0 02/08/19 11:40 Pain Level 0 02/08/19 11:40 Sign Out <RANDI Maldonado - Last Filed: 02/09/19 10:59> Sign Out Data: Sign Out Comment: Signed out pending resolution of tachycardia as well as repeat troponin. Last updated by Ladi Juarez PA at 02/08/19 16:22
[2019-02-08 12:10] VITALS: RESP 19; RESP 4
[2019-02-08] MEDS: Albuterol/Ipratropium 3 ML UPD VIAL UPD ×3 (12:10→15:46)
[2019-02-08 12:41] LABS: Lactate 1.4 mmol/L (0.6-1.4)
[2019-02-08 12:42] LABS: Absolute Basophil Count 0.04 k/cumm (0.0-0.2); Absolute Eosinophil Count 0.35 k/cumm (0.0-0.7); Absolute Lymphocyte Count 0.96 k/cumm (1.2-3.4); Absolute Monocyte Count 0.69 k/cumm (0.11-0.7); Absolute Neutrophil Count 4.42 k/cumm (1.2-6.7); Basophils % 0.6; Eosinophils % 5.4; HCT 41.3 % (40.0-50.0); HGB 13.9 g/dL (13.5-17.5); Lymphocytes % 14.9; Mean Corp. HGB Concentration 33.7 g/dL (32.0-36.0); Mean Corpuscular Hemoglobin 30.3 pg (27.0-33.0); Mean Corpuscular Volume 90.2 fL (80-95); Mean Platelet Volume 12.2 fL (8.0-11.0); Monocytes % 10.7; Neutrophils % 68.4; Platelet Count 203 x1000/uL (130-400); RBC 4.58 m/cumm (4.50-6.00); RBC Distribution Width 13.6 % (11.8-14.1); White Blood Cell Count 6.46 k/cumm (4.4-10.8)
[2019-02-08 13:05] LABS: ALT 24 U/L (16-63); AST 17 U/L (15-37); Albumin 3.8 g/dL (3.4-5.0); Alkaline Phosphatase 135 U/L (46-116); BUN 14 mg/dL (7-18); Bilirubin, Total 0.7 mg/dL (0.2-1.0); CREATININE 0.88 mg/dL (0.70-1.30); Calcium 8.3 mg/dL (8.5-10.1); Chloride 98 mmol/L (98-107); Glucose 119 mg/dL (70-100); NT-proBNP 240 pg/mL; Potassium 3.8 mmol/L (3.5-5.1); Sodium 132 mmol/L (136-145); Total Protein 7.4 g/dL (6.4-8.2)
[2019-02-08 13:12] LABS: Troponin I < 0.05 ng/mL (0.00-0.06)
[2019-02-08 13:20] VITALS: PULSE 88; TEMP 36.1; O2SAT 95
--- NOTE | 2019-02-08 13:34 | DI.CT_ITS ---
SYMPTOMS/DIAGNOSIS: SHORTNESS OF BREATH, ? LEFT UPPER LOBE MASS PE CT: CT angiography was performed with multi slice acquisition and multi planar and 3D reconstruction. The study was carried out according to the usual protocol with an intravenous administration of 85 cc of Omnipaque 350. There is no evidence of PE. The lungs are free of infiltrate. No right upper lobe pulmonary mass is identified. A 6 mm nodule is noted adjacent to the pleural surface in the right upper lobe anteriorly. There is no evidence of an infiltrate. There is no pleural effusion. There is no evidence of hilar or mediastinal adenopathy. The heart is not enlarged. There is no pericardial effusion. There is atherosclerotic change involving the aorta with no evidence of an aneurysm. There are degenerative changes involving a mildly dextrorotoscoliotic dorsal spine. 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 SUMMARY: No left upper lobe mass is apparent. There is a 6 mm right upper lobe pleural-based nodule. There is no evidence of pulmonary embolic disease. Follow-up surveillance of this patient with a repeat chest CT in six to twelve months is recommended.
[2019-02-08 14:00] VITALS: RESP 4; RESP 8
[2019-02-08] MEDS: Omnipaque 350 MG/ML 100 ML BTL IV (14:57)
[2019-02-08] MEDS: methylPREDNISolone SUCC 125 MG VIAL IVP (15:45)
[2019-02-08 15:46] VITALS: RESP 4; RESP 8
[2019-02-08 16:07] LABS: Troponin I < 0.05 ng/mL (0.00-0.06)
[2019-02-08] MEDS: Normal Saline 500 ML 1000 ML IV (16:20)
[2019-02-08 17:15] VITALS: BP 143/96; PULSE 110; RESP 20; TEMP 36.1; O2SAT 97
[2019-02-08] MEDS: Inhaler, Assist Device 1 EACH MC (17:20)
[2019-02-08] MEDS: Albuterol HFA 8 GM 60 PUFF INH IH (17:25)
== END 2019-02-08 17:41 | disposition home or self-care (01) ==
PROVIDERS: Physician Assistant; Emergency Provider Student in an Organized Health Care Education/Training Program; PCP Physician Assistant Medical
DX: J20.9 Acute bronchitis, unspecified (principal); R91.1 Solitary pulmonary nodule
CPT/HCPCS: 36415; 71275; 80053; 93005; 94640; 96361; 96374; 99285; 71046; 83605; 83880; 84484; 85025; 93010; 99284; J2930; J3490; J7620

== ENCOUNTER 2019-04-21 01:45 | Outpatient (CLI) | payer MEDICARE, SELFPAY | END 2019-04-21 02:05 | PROVIDERS: PCP Physician Assistant Medical; Visit Provider Physician Assistant Medical | DX: R05 Cough (principal) ==

== ENCOUNTER 2019-05-20 09:47 | Outpatient (CLI) | payer MEDICARE, SELFPAY ==
--- NOTE | 2019-05-20 13:37 | PFT_ITS ---
PULMONARY FUNCTION TEST REPORT DATE OF SERVICE: May 20, 2019 REQUESTING PROVIDER: Kathy Cardoza PA-C Spirometry shows mild obstructive airways disease with some, but not significant, bronchodilator response. Lung volumes show no evidence of restriction. Diffusion capacity patient unable to carry out acceptable DLCO maneuver. Airways resistance normal. IMPRESSION: Mild obstructive airways disease with some, but not significant, bronchodilator response. Clinical correlation recommended. NORMA/mery D/
[2019-05-20] MEDS: Albuterol HFA 18 GM 200 PUFF INH IH (16:07)
[2019-05-20] MEDS: Inhaler, Assist Device 1 EACH MC (16:07)
== END 2019-05-20 10:07 ==
PROVIDERS: PCP Physician Assistant Medical; Visit Provider Physician Assistant Medical
DX: R06.09 Other forms of dyspnea (principal); R05 Cough; J44.9 Chronic obstructive pulmonary disease, unspecified
CPT/HCPCS: 94060; 94150; 94726

== ENCOUNTER 2020-08-13 13:29 | Emergency (ER) | payer MEDICARE, SELFPAY ==
[2020-08-13] VITALS (34 sets, daily range): BP systolic 137–168; BP diastolic 71–101; PULSE 91–120; RESP 15–26; TEMP 36.3; O2SAT 95–98
--- NOTE | 2020-08-13 13:38 | NUR.NOTE ---
Nursing Note: MALCOLM (SON) [phone]
--- NOTE | 2020-08-13 13:54 | DI.CT_ITS ---
EXAM: CT HEAD CERV SPINE FACIAL WO CLINICAL HISTORY: fall, [place]. TECHNIQUE: Imaging Protocol: Axial computed tomography images with coronal and sagittal reformatted images were created and reviewed COMPARISON: CT CT HEAD WO from 10/17/2018 FINDINGS: CT BRAIN: There is soft tissue swelling over the upper right face and orbit. No obvious acute fractures. Muco sarwat disease noted in the maxillary sinuses, associated with fluid levels which are probably inflammat ory infectious. Indentation of the anterior wall the right maxillary sinus is noted which does not h ave an acute appearance and possibly related to nonacute-remote trauma. There is no evidence of intracranial hemorrhage, mass effect, or shift of midline structures. There are no extra-axial fluid collections. There is advanced symmetrical atrophy. Abundant bilateral per iventricular hypodensity consistent with chronic small vessel disease. No obvious acute territorial infarction. Vascular calcification is noted in the dominant left vertebral artery at the skull base as well as within the intracavernous internal carotid arteries. CT MAXILLOFACIAL BONES: There is abundant soft tissue swelling over the right side of the face and right orbit. There are mu ltiple densities evident within the swelling over the right-side of the face which may be loose forei gn bodies. This right-sided facial swelling extends to the periorbital-preseptal region of the right orbit. There is, however, no evidence of blowout fracture of the orbits. Orbital globes and retro conal regions of both orbits appear unremarkable. There is no evidence of retrobulbar nor retro cona l air nor blood. No orbital blowout fracture. Incidentally noted is mucosal disease in fluid in the maxillary sinuses bilaterally as well as in the sphenoid sinuses. Mild mucosal thickening noted in the right front outside in the frontal sinuses. Seroma noted in the external auditory canals. Mastoid air cells are clear. CT CERVICAL SPINE: There is no evidence of fracture nor listhesis. No significant prevertebral soft tissue swelling. N o facet malalignment evident. Multilevel chronic degenerative disc disease. Mild anterior wedging of T2 vertebral body which does not have an acute appearance. There is fusion across the left side facet joints at C 4-5 level. There is also exaggerated size of the exiting neural foramen at this level which may be developmental versus is smooth erosion from ect atic nerve root. IMPRESSION: No acute intracranial findings on this noninfused CT scan of the brain.Advanced atrophy and chronic s mall vessel white matter ischemic changes. Prominent swelling over the right orbit and right side of the face. No facial nor blowout fractures evident.Incidentally noted is multilevel paranasal sinus mucosal disease, including fluid levels. Multilevel degenerative changes in the cervical spine. No acute fractures. No acute compromise of t he cervical spinal canal. No facet malalignment. This study 1st read by [facility] RADIATION DOSE DELIVERED: 2,004.64mGy.cm Total DLP DATA REPOSITORY: All CT scans at this facility are submitted to the National Radiology Data Registry (NRDR) Dose Index Registry (DIR) with the [employer] (ACR). RADIATION OPTIMIZATION: All CT scans at this facility use at least one of these dose optimization te chniques: automated exposure control; mA and/or kV adjustment per patient size (includes targeted exa ms where dose is matched to clinical indication); or iterative reconstruction.
[2020-08-13 14:02] LABS: Abs Immature Grans 0.03 10^3/uL (0.0-0.06); Absolute Basophil Count 0.07 10^3/uL (0.0-0.2); Absolute Eosinophil Count 0.16 10^3/uL (0.0-0.7); Absolute Lymphocyte Count 1.01 10^3/uL (1.2-3.4); Absolute Monocyte Count 0.64 10^3/uL (0.1-0.8); Absolute Neutrophil Count 7.45 10^3/uL (1.2-6.7); Basophils % 0.7; Eosinophils % 1.7; HCT 44.2 % (40.0-50.0); HGB 14.7 g/dL (13.5-17.5); Immature Grans % 0.3; Lymphocytes % 10.8; MCH 29.8 pg (27.0-33.0); MCHC 33.3 % (32.0-36.0); MCV 89.5 fL (80-95); MPV 11.4 fL (8.0-11.0); Monocytes % 6.8; Neutrophils % 79.7; Nucleated RBC 0 %; Platelet Count 214 10^3/uL (130-400); RBC 4.94 10^6/uL (4.36-5.78); RDW 13.1 % (11.8-14.1); RDW-SD 43.3 fL; WBC 9.36 10^3/uL (4.4-10.8)
[2020-08-13 14:16] LABS: ALT 28 U/L (16-63); AST 19 U/L (15-37); Albumin 3.9 g/dL (3.4-5.0); Alkaline Phosphatase 105 U/L (46-116); Anion Gap 9.4 mmol/L (3-11); BUN 17 mg/dL (7-18); Bilirubin, Total 0.5 mg/dL (0.2-1.0); CO2 25.6 mmol/L (21.0-32.0); CREATININE 1.1 mg/dL (0.70-1.30); Calcium 8.5 mg/dL (8.5-10.1); Chloride 96 mmol/L (98-107); Glucose 123 mg/dL (74-106); Potassium 3.8 mmol/L (3.5-5.1); Sodium 131 mmol/L (136-145); Total Protein 7.6 g/dL (6.4-8.2)
[2020-08-13] MEDS: fentaNYL 100 MCG/2 ML VIAL 50 MCG IVP (14:20)
[2020-08-13] MEDS: Fluorescein STRIPS 100/BOX 1 MG (14:20)
--- NOTE | 2020-08-13 16:04 | DI.VRAD_ITS ---
PROCEDURE INFORMATION: Exam: CT Head Without Contrast Exam date and time: 08/13/2020 3:07 PM Age: 79 years old Clinical indication: Injury or trauma; Fall; Blunt trauma (contusions or hematomas); Forehead; Bleeding/hemorrhage TECHNIQUE: Imaging protocol: Computed tomography of the head without contrast. COMPARISON: CT HEAD WO 10/17/2018 4:12 PM FINDINGS: Brain: Blunt-white matter differentiation is normal. There is no mass effect or midline shift. There is no intra-axial hemorrhage. There are stable moderate to severe confluent and patchy foci of periventricular and subcortical white matter, bilateral basal ganglia and tariq hypodensities, probably reflecting chronic microvascular ischemic disease. 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 There is parenchymal volume loss with compensatory dilatation of ventricles, sulci and basilar cisterns. There is no extra-axial fluid collection. Cerebral ventricles: No ventriculomegaly. Bones/joints: Unremarkable. No acute fracture. Paranasal sinuses: Paranasal sinuses and mastoid air cells: Discussed in the maxillofacial CT. Mastoid air cells: Visualized mastoid air cells are well aerated. Soft tissues: Discussed in the maxillofacial CT. IMPRESSION: No acute intracranial abnormality. PROCEDURE INFORMATION: Exam: CT Maxillofacial Without Contrast Exam date and time: 08/13/2020 3:07 PM Age: 79 years old Clinical indication: Injury or trauma; Fall; Blunt trauma (contusions or hematomas); Forehead; Bleeding/hemorrhage TECHNIQUE: Imaging protocol: Computed tomography images of the face without contrast. COMPARISON: CT HEAD WO 10/17/2018 4:12 PM FINDINGS: Orbital cavity: There is minimal stranding in the right superolateral extraconal fat (image [address] head[address] The marley of the orbits are normal. There is no retrobulbar hematoma. The optic nerves and muscles are normal. Bones/joints: No acute fracture. Paranasal sinuses: There is mild mucosal thickening in the bilateral frontal sinuses, anterior ethmoidal air cells. There is fluid and debris in the bilateral maxillary sinuses. There is mucous retention cyst in the left maxillary sinus. There is fluid in the sphenoidal sinus. Soft tissues: There is a anterolateral frontal scalp hematoma which extends to the right preseptal periorbital soft tissues and overlying right nasal bridge, right zygomatic arch and into the anterolateral face. There is mild calcification overlying right zygoma. Vasculature: There are heavy calcifications of bilateral carotid siphons. The heavy calcifications of arch of aorta. Nasal cavity: There is mild hypertrophy of the right nasal turbinate. Dental: There is a lucency surrounding 2nd mandible molar tooth, probably reflecting odontogenic disease. Oropharynx: There are calcified tonsilliths in the left greater than right tonsils. IMPRESSION: 1. No acute facial bone fracture. 2. Large frontal scalp hematoma, right greater than left which extends to the right preseptal periorbital soft tissues, overlying right zygomatic arch and right zygoma and right anterior lateral face. There is minimal stranding of the superolateral extraconal fat of the right orbit. The globes and intraorbital tissues are normal. There is no retrobulbar hematoma or muscle entrapment. There is no orbital wall fracture. 3. Diffuse sinus disease with fluid in the sphenoidal sinus and air and fluid in the maxillary sinuses could reflect acute sinusitis. PROCEDURE INFORMATION: Exam: CT Cervical Spine Without Contrast Exam date and time: 08/13/2020 3:07 PM Age: 79 years old Clinical indication: Injury or trauma; Fall; Blunt trauma (contusions or hematomas); Forehead; Bleeding/hemorrhage TECHNIQUE: Imaging protocol: Computed tomography images of the cervical spine without contrast. COMPARISON: CT HEAD WO 10/17/2018 4:12 PM FINDINGS: Bones/joints: There is no acute fracture or subluxation. Craniocervical junction is normal. There is normal alignment. Vertebral body heights are maintained. There is mild grade 1 anterolisthesis of C7 over T1. There is mild loss of height of T2 and to a lesser extent T3. Visualized bones are demineralized. Posterior elements are intact. Facets are normally located. Discs/Spinal canal/Neural foramina: There is severe loss of disc height from C3-C4 through C6-C7. Thyroid: There is a probable 6.4 mm hypodense nodule in the right lobe of the thyroid gland. Lungs: Lung apices are normal. Soft tissues: Unremarkable. IMPRESSION: No acute fracture or subluxation in the cervical spine. There is mild loss of height of T2 and T3 due to osteoporotic/ insufficiency basis. Please correlate with the prior CT chest exam if that is chronic or acute. Dictated and Authenticated by: Brock Dutton MD. Ordering:ANGEL Sanchez MD
--- NOTE | 2020-08-13 16:30 | DI.RAD_ITS ---
EXAM: XR PORTABLE CHEST AP CLINICAL HISTORY: fall. TECHNIQUE: 2D digital imaging was performed. COMPARISON: Chest x-ray 02/08/2019 FINDINGS: Heart size is normal. The mediastinum is not widened. There are chest leads in place. No new right lung findings. Mild increased markings noted in the la teral left lung. No obvious pleural effusions. No pulmonary edema. Degenerative changes in the bryson ulders noted. IMPRESSION: Mild increased lateral left lung markings. Possible developing infiltrate. May be exaggerated by ov erlying scapula. Recommend nonportable PA and lateral views when clinically possible. DATA REPOSITORY: RADIATION DOSE DELIVERED:
--- NOTE | 2020-08-13 16:40 | ED.GENADUL_ITS ---
Discharge Plan Disposition Patient Disposition: [facility] Condition: Stable Discharge Details Clinical Impression: complex laceration, Concussion Primary Care Provider: Kathy Cardoza ED Provider: Olu Hayes Home Meds and New Rx's Prescriptions: No Action simvastatin 40 mg tablet 40 mg PO DAILY RF: 0 clopidogrel [Plavix] 75 MG tablet 75 mg PO DAILY Qty: 30 RF: 0 amlodipine 5 mg Tablet 5 mg PO DAILY RF: 0 ibuprofen 600 mg Tablet 600 mg PO TID PRNRF: 0 Discharge Data Discharge Date/Time-TO BE ENTERED AT DEPARTURE: 08/13/20 17:41 Medical Decision Making <RANDI López - Last Filed: 08/16/20 08:18> CT shows large frontal scalp hematoma without evidence of retrobulbar hematoma or muscle entrapment without obvious orbital fracture, no evidence of subarachnoid or subdural hematoma, superior lateral extraconal fat within the right orbit CT cervical spine without acute pathology Hemodynamically stable, alert and oriented, no acute distress Visual acuity 20/200 OU, OD, OS No evidence of globe rupture on CT scan Case discussed with Dr. Jung, surgeon on-call who accepts patient in transfer for facial surgery consultation Patient is agreeable to transfer at this time I was asked to perform chest x-ray Stable at time of reevaluation Sodium 131, chloride 96, glucose 123 Hemoglobin and hematocrit within normal limits Pending transport at 1649 Differential Diagnosis Differential Diagnosis: Facial laceration, subdural hematoma, orbital fracture, retrobulbar hematom Medical Records Medical records reviewed: Yes I reviewed the patient's medical records. <Olu Hayes MD - Last Filed: 08/13/20 18:29> Received signout on the patient from Ms. Stock. I personally examined the patient [id number], I agree with her assessment and plan including consultation for periorbital laceration repair. HPI <RANDI López - Last Filed: 08/16/20 08:18> This 79-year-old male with past medical history of hypertension and hy perlipidemia presents with reports of mechanical trip and fall. He landed on there from standing. He was ambulatory after the event. He has pain and lacerations to the right side of his face. She denies any vision change. He states at baseline he is not able to see closely. He states that this has not changed. He denies any current headache. He has pain over the site of injury. He denies loss of consciousness, nausea, vomiting. He did take his Plavix this morning reportedly. His tetanus was updated in 2018. He denies any cervical spine tenderness. He denies any strength or sensation changes. He is ambulatory into the emergency room. Denies any abdominal pain General Date/Time Provider Initiated Documentation: 08/13/20 13:35 . Related Data Home Medications Medication Instructions Recorded Confirmed clopidogrel [Plavix] 75 mg PO DAILY #30 tab 05/13/17 08/13/20 amlodipine 5 mg PO DAILY 10/17/18 08/13/20 ibuprofen 600 mg PO TID PRN 10/17/18 08/13/20 simvastatin 40 mg PO DAILY 08/13/20 08/13/20 Previous Rx's Medication Instructions Recorded clopidogrel [Plavix] 75 mg PO DAILY #30 tab 05/13/17 Allergies Allergy/AdvReac Type Severity Reaction Status Date / Time Penicillins Allergy Severe per pcp Unverified 08/13/20 13:38 office aspirin AdvReac Intermediate Skin Rash Unverified 08/13/20 13:38 atenolol AdvReac Intermediate fatigue Unverified 08/13/20 13:38 atorvastatin calcium AdvReac Mild itch Unverified 08/13/20 13:38 [From Lipitor] General Stated Complaint: Trauma LAUREANO: 2 <Olu Hayes MD - Last Filed: 08/13/20 18:29> This 79-year-old male with past medical history of hypertension and hyperlipidemia presents with reports of mechanical trip and fall. He landed on there from standing. He was ambulatory after the event. He has pain and lacerations to the right side of his face. She denies any vision change. He states at baseline he is not able to see closely. He states that this has not changed. He denies any current headache. He has pain over the site of injury. He denies loss of consciousness, nausea, vomiting. He did take his Plavix this morning reportedly. His tetanus was updated in 2018. He denies any cervical spine tenderness. He denies any strength or sensation changes. He is ambulatory into the emergency room. Denies any abdominal pain Review of Systems <RANDI López - Last Filed: 08/16/20 08:18> Narrative: Review of systems obtained x7 aside from where indicated in HPI PFSH <RANDI López - Last Filed: 08/16/20 08:18> Surgical History (Updated 02/09/16 @ 11:06 by Gloria Lundy) complex laceration of left upper extremity (01/19/16) Social History Smoking/Tobacco Use Status: Never Smoking risk assessment performed?: Yes Alcohol Intake: former Drug use: Never Details: no alcohol for 30 yrs Do you feel safe at home: Yes Do you feel safe in your relationship?: Yes Exam <RANDI López - Last Filed: 08/16/20 08:18> Const General: cooperative and no acute distress Orientation: alert and oriented x3 Limitations: mental status not altered [facility] Head images: 1. 2. 3. Other: No hemotympanum Eyes Pupils: PERRL EOM: EOM intact bilaterally Other: No proptosis Neck Other: No midline tenderness Chest Chest: normal inspection of the chest Resp Effort & Inspection: normal respiratory effort Other: No visible sign of trauma Cardio Rate: regular rate Rhythm: regular rhythm GI Other: No abdominal tenderness, no CVA tenderness Back/Spine/Pelvis Other: No lumbar spine tenderness Neuro General: patient alert and patient oriented x3 Cranial Nerves: CN's II-XI intact bilaterally Cognition: normal cognition Speech: speech normal and speech normal Gait: normal gait Extrem Other: Neurovascularly intact Course <RANDI López - Last Filed: 08/16/20 08:18> Vital Signs Vital signs: Vital Signs Temperature 36.3 C L 08/13/20 13:35 Pulse 120 H 08/13/20 13:35 Respiratory Rate 16 08/13/20 13:35 Blood Pressure 168/91 H 08/13/20 13:35 Pulse Oximetry 97 08/13/20 13:35 Temperature 36.3 C L 08/13/20 13:35 Temperature Source Skin 08/13/20 13:35 Pulse 93 H 08/13/20 16:01 Pulse 95 H 08/13/20 16:01 Respiratory Rate 20 08/13/20 16:01 Respiratory Effort Non-Labored 08/13/20 15:49 Respiratory Depth Normal 08/13/20 15:49 Respiratory Pattern Normal 08/13/20 15:49 Blood Pressure 139/87 08/13/20 16:01 Blood Pressure Mean 101 08/13/20 16:01 Blood Pressure Position Sitting 08/13/20 13:35 Pulse Oximetry 97 08/13/20 16:01 Oxygen Delivery Method Room Air 08/13/20 13:35 Oxygen Flow Rate 0 08/13/20 13:35 Pain Level 4 08/13/20 15:49 Lab/Test Results Lab/Test Results: Laboratory Tests Range/Units 08/13/20 08/13/20 08/13/20 13:48 13:48 13:48 WBC (4.4-10.8) 10^3/uL 9.36 RBC (4.36-5.78) 10^6/uL 4.94 Hgb (13.5-17.5) g/dL 14.7 Hct (40.0-50.0) % 44.2 MCV (80-95) fL 89.5 MCH (27.0-33.0) pg 29.8 MCHC (32.0-36.0) % 33.3 RDW (11.8-14.1) % 13.1 Plt Count (130-400) 10^3/uL 214 MPV (8.0-11.0) fL 11.4 H Immature Gran % 0.3 Neutrophils % 79.7 Lymphocytes % 10.8 Monocytes % 6.8 Eosinophils % 1.7 Basophils % 0.7 Nucleated RBC % % 0 Absolute Neutrophils (1.2-6.7) 10^3/uL 7.45 H Absolute Lymphocytes (1.2-3.4) 10^3/uL 1.01 L Absolute Monocytes (0.1-0.8) 10^3/uL 0.64 Absolute Eosinophils (0.0-0.7) 10^3/uL 0.16 Absolute Basophils (0.0-0.2) 10^3/uL 0.07 PT (9.3-11.0) sec 10.0 INR (0.9-1.1) 1.0 Sodium (136-145) mmol/L 131 L Potassium (3.5-5.1) mmol/L 3.8 Chloride (98-107) mmol/L 96 L Carbon Dioxide (21.0-32.0) mmol/L 25.6 Anion Gap (3-11) mmol/L 9.4 BUN (7-18) mg/dL 17 Creatinine (0.70-1.30) mg/dL 1.1 Estimated GFR/1.73 m2 (mL/min/1.73m2) >= 60.00 Glucose (74-106) mg/dL 123 H Calcium (8.5-10.1) mg/dL 8.5 Total Bilirubin (0.2-1.0) mg/dL 0.5 AST (15-37) U/L 19 ALT (16-63) U/L 28 Alkaline Phosphatase (46-116) U/L 105 Total Protein (6.4-8.2) g/dL 7.6 Albumin (3.4-5.0) g/dL 3.9 Sign Out <RANDI López - Last Filed: 08/16/20 08:18> Sign Out Data: Sign Out Comment: pending transport to [facility]/ ER Last updated by Laura Stock PA at 08/13/20 17:04
--- NOTE | 2020-08-13 17:07 | DI.VRAD_ITS ---
PROCEDURE INFORMATION: Exam: XR Chest Exam date and time: 08/13/2020 4:56 PM Age: 79 years old Clinical indication: Injury or trauma; Fall; Blunt trauma (contusions or hematomas); Patient HX: Blunt trauma to orbits TECHNIQUE: Imaging protocol: XR of the chest Views: 1 view. COMPARISON: CR XR CHEST 2V PA LATERAL 02/08/2019 1:01 PM FINDINGS: Lungs: Lungs volumes are low. There is mild patchy opacity in the left mid to lower lung. There is left basilar atelectasis. Pleural spaces: No pleural effusion. No pneumothorax. Heart/Mediastinum: No cardiomegaly. 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 There is no acute osseous abnormality. IMPRESSION: Patchy opacities in the left mid to lower lung could reflect infiltrate or atelectasis. Dictated and Authenticated by: Brock Dutton MD. Ordering:ANGEL Sanchez MD
== END 2020-08-13 17:41 | disposition short-term general hospital (02) ==
PROVIDERS: Physician Assistant; Emergency Provider Emergency Medicine; PCP Physician Assistant Medical
DX: S01.81XA Laceration without foreign body of other part of head, initial encounter (principal); S06.0X0A Concussion without loss of consciousness, initial encounter; S00.03XA Contusion of scalp, initial encounter; W18.39XA Other fall on same level, initial encounter
CPT/HCPCS: 36415; 80053; 96374; 99285; 70450; 70486; 71045; 72125; 85025; 85610; J3010

== ENCOUNTER 2020-12-04 11:00 | Outpatient (REF) | payer MEDICARE, SELFPAY ==
[2020-12-04 15:48] LABS: Abs Immature Grans 0.01 10^3/uL (0.0-0.06); Absolute Basophil Count 0.04 10^3/uL (0.0-0.2); Absolute Eosinophil Count 0.14 10^3/uL (0.0-0.7); Absolute Lymphocyte Count 1.15 10^3/uL (1.2-3.4); Absolute Monocyte Count 0.54 10^3/uL (0.1-0.8); Absolute Neutrophil Count 3.07 10^3/uL (1.2-6.7); Basophils % 0.8; Eosinophils % 2.8; HCT 46.3 % (40.0-50.0); HGB 14.9 g/dL (13.5-17.5); Immature Grans % 0.2; Lymphocytes % 23.2; MCH 28.5 pg (27.0-33.0); MCHC 32.2 % (32.0-36.0); MCV 88.7 fL (80-95); MPV 12.7 fL (8.0-11.0); Monocytes % 10.9; Neutrophils % 62.1; Nucleated RBC 0 %; Platelet Count 183 10^3/uL (130-400); RBC 5.22 10^6/uL (4.36-5.78); RDW-SD 42.7 fL; WBC 4.95 10^3/uL (4.4-10.8)
[2020-12-04 16:05] LABS: Hemoglobin A1C 5.4 % (<5.7)
[2020-12-04 16:08] LABS: ALT 20 U/L (16-63); AST 18 U/L (15-37); Albumin 4.5 g/dL (3.4-5.0); Alkaline Phosphatase 120 U/L (46-116); Anion Gap 11.1 mmol/L (3-11); BUN 11 mg/dL (7-18); Bilirubin, Total 0.9 mg/dL (0.2-1.0); CO2 26.9 mmol/L (21.0-32.0); Calcium 9.4 mg/dL (8.5-10.1); Calculated LDL 96 mg/dL (<100); Chloride 97 mmol/L (98-107); Cholesterol 154 mg/dL (<200); Glucose 97 mg/dL (74-106); HDL Cholesterol 47 mg/dL (40-60); Potassium 5.1 mmol/L (3.5-5.1); Sodium 135 mmol/L (136-145); TSH (W/Ref FT4) 1.98 uIU/mL (0.36-3.74); Total Protein 7.8 g/dL (6.4-8.2); Triglyceride 59 mg/dL (<150)
== END 2020-12-04 11:01 | disposition home or self-care (01) ==
LOC: NCHCN 11:00
PROVIDERS: PCP Physician Assistant Medical; Visit Provider Physician Assistant Medical
DX: I10 Essential (primary) hypertension (principal); R73.9 Hyperglycemia, unspecified; E87.1 Hypo-osmolality and hyponatremia
CPT/HCPCS: 80053; 80061; 83036; 84443; 85025

== ENCOUNTER 2020-12-07 02:03 | Outpatient (CLI) | payer MEDICARE, SELFPAY ==
--- NOTE | 2020-12-07 | DI.CT_ITS ---
Exam(s) CT CHEST W EXAM: CT CHEST W CLINICAL HISTORY: PULMONARY NODULE, R91.1. TECHNIQUE: Multi planar reconstructions were performed. CONTRAST MATERIAL: Omnipaque 350; 75 cc COMPARISON: CT CHEST/T-SPINE from 12/30/[address] CHEST PE CTA from 02/08/2019 CR,XR XR PORTABLE CHEST AP from 08/13/2020 FINDINGS: CHEST: LUNGS: There minimal increased subpleural markings/nodular infiltrate in the extreme left lung base b isaura segment border wing with the lateral basal segment, this measuring 6 millimeter. Similar findin g was seen left lung base on CT scan of January 2019 but the location is slightly different. This is probably benign finding. There are no other significant focal findings in the left lung and no pl eural effusion. The opposite-right lung exhibits a 4 millimeter unchanged nodule in the right middle lobe subpleural location, benign as it is unchanged since January 2019. No new focal right lung findings. There a re no pleural effusions on either side. There are no significant focal findings in the trachea and m ainstem bronchi. MEDIASTINUM: There is no hilar nor mediastinal adenopathy. Visualized thyroid unremarkable. CARDIAC: Heart size upper normal. Coronary artery calcifications noted in the left coronary artery a nd LAD. There is no pericardial effusion. The caliber of the thoracic aorta is within normal limits . No dissection.Aortic arch is somewhat atherosclerotic not dilated. Descending thoracic aorta exhi bits upper normal diameter. VISUALIZED UPPER ABDOMEN:These images are significantly blurred by motion artifact, particularly at t he level of the spleen and left kidney. However, there are no adrenal masses evident. The gallbladd er is not distended but contains hyperdense material, possibly milk of calcium. This finding is unch anged from the prior CT scan of January 2019. OSSEOUS: No significant osseous lesions.. IMPRESSION: 1. Lower most images of this study are degraded by motion artifact, this at the level of the lung bas es and upper abdomen. 2. There is no prominent infiltrate in the left lung base but there is a small subpleural 6 millimete r nodular density which may or may not correspond to a similar appearing finding at this location on prior CT scan of January 2019. Location appears slightly different but this may be due to the resp iratory motion here. We are probably dealing with benign findings here. There is also a stable 4 mi llimeter nodule in the opposite-right lung in the right middle lobe. This finding is unchanged from [address] scan. There is no intrathoracic adenopathy and there are no pleural effusions. 3. The gallbladder is again noted to be filled with hyperdense material, similar to the prior CT scan of January 2019. The gallbladder is not edematous nor distended. I suspect the contents are milk of calcium. Recommend follow-up CT scan in 6 months. RADIATION DOSE DELIVERED: 518.05mGy.cm Total DLP DATA REPOSITORY: All CT scans at this facility are submitted to the National Radiology Data Registry (NRDR) Dose Index Registry (DIR) with the [employer] (A[employer]). RADIATION OPTIMIZATION: All CT scans at this facility use at least one of these dose optimization te chniques: automated exposure control; mA and/or kV adjustment per patient size (includes targeted exa ms where dose is matched to clinical indication); or iterative reconstruction.
[2020-12-07] MEDS: Omnipaque 350 MG/ML 100 ML BTL IV (15:54)
== END 2020-12-07 02:23 ==
PROVIDERS: PCP Physician Assistant Medical; Visit Provider Physician Assistant Medical
DX: R91.8 Other nonspecific abnormal finding of lung field (principal); R91.1 Solitary pulmonary nodule; K82.8 Other specified diseases of gallbladder
CPT/HCPCS: 71260; J3490

== ENCOUNTER 2021-01-14 13:25 | Inpatient (IN) | payer MEDICARE, SELFPAY ==
[2021-01-14] VITALS (13 sets, daily range): BP systolic 120–146; BP diastolic 64–88; PULSE 59–104; RESP 15–24; TEMP 36.4–36.7; O2SAT 96–99
--- NOTE | 2021-01-14 13:15 | DI.RAD_ITS ---
Exam(s) XR CHEST 2V PA LATERAL EXAM: XR CHEST 2V PA LATERAL CLINICAL HISTORY: possible cva, r/o acute disease. TECHNIQUE: 2D digital imaging was performed. COMPARISON: CR,XR XR PORTABLE CHEST AP from 08/13/2020 FINDINGS: Heart size is upper normal. The mediastinum is not widened. Lungs are clear. No infiltrates nor pleural effusions. IMPRESSION: No acute pulmonary findings. DATA REPOSITORY: RADIATION DOSE DELIVERED:
--- NOTE | 2021-01-14 13:15 | DI.CT_ITS ---
Exam(s) CT HEAD - STROKE PROTOCOL EXAM: CT HEAD - STROKE PROTOCOL CLINICAL HISTORY: can't talk, r/o cva. TECHNIQUE: Imaging Protocol: Axial computed tomography images with coronal and sagittal reformatted images were created and reviewed COMPARISON: CT CT HEAD CERV SPINE FACIAL WO from 08/13/2020 FINDINGS: There are no skull fractures. There is mucosal thickening again noted in the right frontal sinus. Mucosal thickening also again noted in the right maxillary sinus although this has decreased. Small fluid levels again noted in the left maxillary sinus. Ethmoidal air cells and sphenoid sinuses are c lear. Mastoid air cells clear. Again noted is heavy calcification left vertebral artery at the skull base. Also calcification in th e intracavernous and supraclinoid internal carotid arteries. There is no evidence of intracranial hemorrhage, mass effect, or shift of midline structures. There are no extra-axial fluid collections. The ventricles are not enlarged or shifted and there is no blo od within the ventricular system nor within the basal cisterns. Abundant bilateral periventricular hypodensity consistent with chronic small vessel disease is again noted. Superimpose 4 millimeter nonhemorrhagic lacunar infarct in the left periventricular white mat ter is again noted. No obvious new territorial infarction. IMPRESSION: Abundant bilateral white matter small vessel disease, similar to the previous study. No obvious acut e intracranial findings. If clinically indicated follow-up MRI with diffusion imaging can be perform ed. Sinus findings as described above. RADIATION DOSE DELIVERED: 767.18mGy.cm Total DLP DATA REPOSITORY: All CT scans at this facility are submitted to the National Radiology Data Registry (NRDR) Dose Index Registry (DIR) with the [employer] (ACR). RADIATION OPTIMIZATION: All CT scans at this facility use at least one of these dose optimization te chniques: automated exposure control; mA and/or kV adjustment per patient size (includes targeted exa ms where dose is matched to clinical indication); or iterative reconstruction.
--- NOTE | 2021-01-14 13:30 | DI.CT_ITS ---
Exam(s) CT BRAIN NECK CTA EXAM: CT BRAIN NECK CTA CLINICAL HISTORY: possible stroke, r/o acute cva. TECHNIQUE: Imaging Protocol: Axial CT angiography was performed with multi-slice acquisition and mu lti-planar and/or 3D reconstructions. CONTRAST MATERIAL: Intravenous: Omnipaque 350 Contrast volume:85 cc COMPARISON: CT CT CHEST PE CTA from 02/08/2019 FINDINGS: CTA Neck W: Aortic arch anatomy: The aortic arch anatomy is conventional. No tight stenosis at the origin of the great vessels off of the arch. Anterior circulation: Both common carotid arteries ascend with normal luminal diameters. There is plaque noted at the carotid bifurcations, more so on the right side where there is calcified plaque on the posterior and medial marley and extending into the proximal right ICA. Approximately 4 0 percent stenosis at this level. The cervical course diameter of the right ICA above this level in the neck is normal. Plaque also seen at the left carotid bulb and proximal ICA but with less than 20 percent stenosis. Left ICA is patent above this level in the neck and skull base-carotid canal. Posterior circulation: Both vertebral arteries originated conventional fashion off of the subclavian arteries. The proximal left vertebral artery is tortuous. Is a dominant vessel with ascending luminal diameter of 4.8 mill imeters in the foramen transversarium and no evidence of intraluminal thrombus nor dissection. The r ight vertebral artery ascends with a thin nor luminal diameter 2.3 cm. Also no evidence of intralumi nal thrombus nor dissection. At the skull base is contribute to the formation of the basilar artery, albeit as a thinner vessel than the dominant left vertebral artery. CTA Brain W: Anterior circulation: Both internal carotid arteries are patent in the skull base-carotid canals. These vessels are periph erally calcified in the cavernous sinuses but without high-grade stenoses. Both middle cerebral arteries are patent out to the sylvian fissure branches. No intraluminal thromb us nor aneurysms. Both A1 segments are patent as are both anterior cerebral arteries. There is no e vidence of aneurysm at the level of the anterior communicating artery. Posterior circulation: Basilar artery is formed at the skull base by the dominant left vertebral artery and thinner right ve rtebral artery. The basilar artery ascends with a luminal diameter of 3.5 cm and no evidence of intr aluminal thrombus nor dissection. Distally it gives off space in superior cerebellar arteries. Abov e this level there are bilateral posterior communicating arteries contributing to the posterior cereb ral arteries.. Both posterior cerebral arteries to originate off of the basilar tip. There is steno sis in the left posterior cerebral artery approximately 5 [address] from its origin. [address] BRAIN: There is no evidence of intracranial hemorrhage, mass effect, or shift of midline structures. There are no extra-axial fluid collections. Ventricles are not enlarged or shifted and there is no blood w ithin the ventricular system nor within the basal cisterns. There are no ring enhancing lesions in t he brain and no abnormal meningeal enhancement. Abundant bilateral periventricular hypodensity consistent with chronic small vessel disease. No obvi ous acute infarct. IMPRESSION: 1. Some plaque is evident at both carotid bifurcations and proximal internal carotid arteries, slight ly more so on the right side but stenosis at these levels is mild and most related to calcified plaqu e. 2. Left vertebral artery is dominant although both contribute to the formation of the basilar artery at the skull base. 3. Calcified plaque noted in both intracavernous internal carotid arteries. 4. 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 There are bilateral posterior communicating arteries on both sides the [id number]. No aneurysm is evident. Chronic small vessel ischemic white matter periventricular changes. No evidence of ring enhancing le sions in the brain nor abnormal meningeal enhancement. RADIATION DOSE DELIVERED: 1,187.53mGy.cm Total DLP DATA REPOSITORY: All CT scans at this facility are submitted to the National Radiology Data Registry (NRDR) Dose Index Registry (DIR) with the [employer] (ACR). RADIATION OPTIMIZATION: All CT scans at this facility use at least one of these dose optimization te chniques: automated exposure control; mA and/or kV adjustment per patient size (includes targeted exa ms where dose is matched to clinical indication); or iterative reconstruction.
--- NOTE | 2021-01-14 13:48 | DI.VRAD_ITS ---
PROCEDURE INFORMATION: Exam: CT Head Without Contrast Exam date and time: 01/14/2021 1:21 PM Age: 80 years old Clinical indication: Other: Can't talk, R/O CVA TECHNIQUE: Imaging protocol: Computed tomography of the head without contrast. Other technique: STROKE PROTOCOL was implemented. COMPARISON: CT HEAD CERV SPINE FACIAL WO 08/13/2020 3:10 PM FINDINGS: Brain: Ventricles, sulci are not significantly changed when compared with the patient's prior exam. There is ventricular, cortical sulcal prominence consistent with central, cortical atrophy. There is prominent, confluent low attenuation involving the supratentorial periventricular and subcortical white matter nonspecific likely small vessel change/microangiopathy. There is low attenuation involving the left posterior walker radiata best seen on series 2, image 31 also previously noted. There is remote left thalamic lacune. There is a lacune noted posteriorly in the right lentiform nucleus. There is no new hemorrhage. There is no new intracranial mass or shift. There is no definite acute cortical or major vascular territory infarct identified. Ventricular size is unchanged when compared with the patient's prior exam; Cerebral ventricles: Ventricular size is unchanged. Ventricular prominence likely is related to central atrophy Paranasal sinuses: Mucoperiosteal thickening is seen inferiorly in both maxillary antra. Mucoperiosteal thickening is also seen within the right frontal sinus. Mastoid air cells: There is no significant mastoid or middle ear opacification Orbital cavity: Orbits are unremarkable Vasculature: Intracranial vascular calcification is noted. No definite hyperdense intravascular thrombus identified. Bones/joints: There is no acute bony abnormality identified Soft tissues: Unremarkable. Other findings: Exam mildly degraded by patient motion IMPRESSION: Findings consistent with central, cortical atrophy and probable small vessel change/microangiopathy without significant change when compared with the patient's prior examination. There is no CT evidence of a new cortical or major vascular territory infarct. If further evaluation for recent, acute or subacute ischemic changes indicated, MR correlation recommended. ASSESSMENT: ASPECTS (Mirela Stroke Program Early CT Score) is 10 Dictated and Authenticated by: Elba Mason MD. Ordering:CARSON Morales MD
--- NOTE | 2021-01-14 13:57 | ED.GENADUL_ITS ---
Discharge Plan Disposition Patient Disposition: [facility] INPATIENT Condition: Stable Discharge Details Clinical Impression: Expressive aphasia, Altered mental status Admit Date/Time: 01/14/21 15:25 Admit Provider: Montez Duncan Attending Provider: Montez Duncan Primary Care Provider: Kathy Cardoza ED Provider: Carmen Davey Discharge Data Discharge Date/Time-TO BE ENTERED AT DEPARTURE: 01/14/21 17:50 Medical Decision Making 80-year-old male with a history of atrial fibrillation, hypertension, previous CVA presents for slurred speech and altered mental status since this morning at 9 AM. Patient is mainly complaining of slurred speech. Son states it is not unusual for him to not be oriented x3. Vitals within normal limits. Patient able to answer most questions appropriately but does not know the month or the president. His speech does appear slurred but he has no other focal deficits on exam. He appears generally weak but nontoxic. Patient referred for stat CT head which was negative for acute bleed. CTA head and neck imaging noted intracranial atherosclerotic disease but no other acute findings, recommend MRI for further evaluation. Concern for acute CVA, also consider dehydration, electrolyte abnormality, arrhythmia, TIA, UTI. EKG notes a rate of 87, atrial fibrillation, no STEMI. Review of previous EKGs note that pt has been in Afib in the past. White cell count normal at five. Sodium 129. Troponin negative. Urinalysis notes trace blood but otherwise unremarkable. Discussed with [facility] [place] neurology who has no other acute recommendations. Patient is already taking Plavix and is allergic to aspirin. Agrees with plan for admission for telemetry monitoring with plan for MRI brain tomorrow to rule out possible embolic CVA. Does not recommend additional anticoagulation at this time. Review of records note that patient had a subarachnoid hemorrhage in 2011. Case discussed with hospitalist who accepts patient for admission. Medical Records Medical records reviewed: Yes I reviewed the patient's medical records. Imaging Data Radiologic Study: Radiologist's impression: XR Chest Exam date and time: 01/14/2021 1:21 PM Age: 80 years old Clinical indication: Other: Possible CVA, R/O acute disease TECHNIQUE: Imaging protocol: XR of the chest. Views: 2 views. COMPARISON: CT CHEST W 12/07/2020 3:20 PM FINDINGS: Lungs: There is no significant airspace consolidation or overt CHF Pleural spaces: A large pleural effusion, or pneumothorax is not seen Heart/Mediastinum: Heart, mediastinum are unremarkable. There is mild vascular calcification at the aortic arch. Bones/joints: The bony structures are osteopenic. Degenerative changes are seen in the spine. Degenerative changes are seen in the shoulders left greater than right. There is no acute bony abnormality IMPRESSION: No acute findings by plain film exam. No evidence of active airspace disease CT Head Without Contrast Exam date and time: 01/14/2021 1:21 PM Age: 80 years old Clinical indication: Other: Can't talk, R/O CVA TECHNIQUE: Imaging protocol: Computed tomography of the head without contrast. Other technique: STROKE PROTOCOL was implemented. COMPARISON: CT HEAD CERV SPINE FACIAL WO 08/13/2020 3:10 PM FINDINGS: Brain: Ventricles, sulci are not significantly changed when compared with the patient's prior exam. There is ventricular, cortical sulcal prominence consistent with central, cortical atrophy. There is prominent, confluent low attenuation involving the supratentorial periventricular and subcortical white matter nonspecific likely small vessel change/microangiopathy. There is low attenuation involving the left posterior walker radiata best seen on series 2, image 31 also previously noted. There is remote left thalamic lacune. There is a lacune noted posteriorly in the right lentiform nucleus. There is no new hemorrhage. There is no new intracranial mass or shift. There is no definite acute cortical or major vascular territory infarct identified. Ventricular size is unchanged when compared with the patient's prior exam; Cerebral ventricles: Ventricular size is unchanged. Ventricular prominence likely is related to central atrophy Paranasal sinuses: Mucoperiosteal thickening is seen inferiorly in both maxillary antra. Mucoperiosteal thickening is also seen within the right frontal sinus. Mastoid air cells: There is no significant mastoid or middle ear opacification Orbital cavity: Orbits are unremarkable Vasculature: Intracranial vascular calcification is noted. No definite hyperdense intravascular thrombus identified. Bones/joints: There is no acute bony abnormality identified Soft tissues: Unremarkable. Other findings: Exam mildly degraded by patient motion IMPRESSION: Findings consistent with central, cortical atrophy and probable small vessel change/microangiopathy without significant change when compared with the patient's prior examination. There is no CT evidence of a new cortical or major vascular territory infarct. If further evaluation for recent, acute or subacute ischemic changes indicated, MR correlation recommended. CT Angiography Head With Contrast, Arteriography Exam date and time: 01/14/2021 2:48 PM Age: 80 years old Clinical indication: Other: Possible stroke, R/O acute CVA TECHNIQUE: Imaging protocol: Computed tomography angiography of the head with contrast. Exam focused on the arteries. 3D rendering (Not supervised by radiologist): MIP and/or 3D reconstructed images were created by the technologist. Radiation optimization: All CT scans at this facility use at least one of these dose optimization techniques: automated exposure control; mA and/or kV adjustment per patient size (includes targeted exams where dose is matched to clinical indication); or iterative reconstruction. Contrast material: OMNIPAQUE 350; Contrast volume: 85 ml; Contrast route: INTRAVENOUS (IV); COMPARISON: CT HEAD - STROKE PROTOCOL 01/14/2021 1:30 PM FINDINGS: ANTERIOR CIRCULATION: Right internal carotid artery: There is prominent atherosclerotic plaque involving the right cavernous, supraclinoid ICA. There is mild irregularity, narrowing which appears most prominent in the supraclinoid segment. No aneurysm. Ophthalmic artery identified PCOM identified Right middle cerebral artery: Unremarkable. No occlusion or significant stenosis. No aneurysm. Right anterior cerebral artery: Unremarkable. No occlusion or significant stenosis. No aneurysm. Left internal carotid artery: There is atherosclerotic plaque involving the left ICA particularly the cavernous, supraclinoid left ICA. No aneurysm. Ophthalmic artery identified PCOM identified Left middle cerebral artery: Unremarkable. No occlusion or significant stenosis. No aneurysm. Left anterior cerebral artery: Unremarkable. No occlusion or significant stenosis. No aneurysm. POSTERIOR CIRCULATION: Right vertebral artery: The intradural right vertebral artery is small, hypoplastic particularly beyond the right PICA origin but the vertebrobasilar junction is patent. Left vertebral artery: Left vertebral artery is dominant. There is plaque, calcification involving the intradural left vertebral artery but the vertebrobasilar junction is patent. No aneurysm. Basilar artery: Flow is seen throughout the basilar artery without significant stenosis. Superior cerebellar arteries are identified bilaterally. Anterior inferior cerebellar arteries are identified. Right posterior cerebral artery: Right P1 segment identified. No occlusion or significant stenosis. No aneurysm. Left posterior cerebral artery: Left P1 segment is identified, it is small, hypoplastic.. There is irregularity, narrowing of the left PROGRAM [employer]IST particularly the left P2 segment. However flow is seen distally in the left PROGRAM [employer]IST. No aneurysm. There are no findings to suggest acute dural sinus thrombosis.. Brain: Please see the noncontrast enhanced examination which is dictated as a separate report. There are no new/additional findings identified after contrast administration. There is no evidence of an enhancing intracranial mass. Cerebral ventricles: Ventricular prominence likely is related to central atrophy.. Bones/joints: Unremarkable. No acute fracture. Soft tissues: Unremarkable. 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 It particularly involves both intracranial ICAs. There is mild plaque involving the left vertebral artery and irregularity of the left PRO[employer]IST likely is related to atherosclerotic disease. To better evaluate for the presence of recent, acute or subacute ischemic change MR correlation recommended CT Angiography Neck With Contrast Exam date and time: 01/14/2021 2:48 PM Age: 80 years old Clinical indication: Other: Possible stroke, R/O acute CVA TECHNIQUE: Imaging protocol: Computed tomography angiography of the neck with contrast. 3D rendering (Not supervised by radiologist): MIP and/or 3D reconstructed images were created by the technologist. Radiation optimization: All CT scans at this facility use at least one of these dose optimization techniques: automated exposure control; mA and/or kV adjustment per patient size (includes targeted exams where dose is matched to clinical indication); or iterative reconstruction. Contrast material: OMNIPAQUE 350; Contrast volume: 85 ml; Contrast route: INTRAVENOUS (IV); COMPARISON: CT HEAD - STROKE PROTOCOL 01/14/2021 1:30 PM FINDINGS: CT angiography of the aortic arch demonstrates plaque at the aortic arch but the origins of the brachiocephalic, left common carotid artery left subclavian artery are patent. Flow is seen distally in the subclavian arteries. Right common carotid artery: No stenosis. No dissection or occlusion. Right internal carotid artery: There is plaque at the right carotid bifurcation. There is narrowing of the proximal right ICA but degree of stenosis is not greater than 50%. Flow is seen distally within the right cervical ICA which is mildly tortuous.. No dissection or occlusion. Right external carotid artery: No occlusion or stenosis of the origin. Left common carotid artery: No stenosis. No dissection or occlusion. Left internal carotid artery: There is plaque at the left carotid bifurcation with narrowing of the proximal left ICA which appears mild. Flow is seen distally in the left cervical ICA. No dissection or occlusion. Left external carotid artery: No occlusion or stenosis of the origin. Right vertebral artery: No stenosis. No dissection or occlusion. Left vertebral artery: There is plaque at the left vertebral artery origin but it is patent. Left vertebral artery is dominant in the neck.. No dissection or occlusion. Soft tissues: There is no evidence of a discrete soft tissue mass in the neck. There is no significant adenopathy. No significant airspace consolidation is identified at the lung apices.. Bones/joints: There are findings consistent with cervical spondylosis, degenerative disc disease. There is prominence of the cervical lordosis. There is no acute or destructive bony abnormality. IMPRESSION: There is atherosclerotic plaque noted at both carotid bifurcations with narrowing of the proximal ICAs which is not hemodynamically significant Cervical spondylosis, disc disease.. Lab Data Lab results reviewed: Yes I reviewed the patient's lab results. Labs: Laboratory Tests Range/Units 01/14/21 01/14/21 01/14/21 14:20 14:20 14:45 WBC (4.4-10.8) 10^3/uL 5.66 RBC (4.36-5.78) 10^6/uL 4.66 Hgb (13.5-17.5) g/dL 13.3 L Hct (40.0-50.0) % 40.6 MCV (80-95) fL 87.1 MCH (27.0-33.0) pg 28.5 MCHC (32.0-36.0) % 32.8 RDW (11.8-14.1) % 13.7 Plt Count (130-400) 10^3/uL 192 MPV (8.0-11.0) fL 11.7 H Immature Gran % 0.4 Neutrophils % 66.0 Lymphocytes % 19.6 Monocytes % 11.0 Eosinophils % 2.1 Basophils % 0.9 Nucleated RBC % % 0 Absolute Neutrophils (1.2-6.7) 10^3/uL 3.74 Absolute Lymphocytes (1.2-3.4) 10^3/uL 1.11 L Absolute Monocytes (0.1-0.8) 10^3/uL 0.62 Absolute Eosinophils (0.0-0.7) 10^3/uL 0.12 Absolute Basophils (0.0-0.2) 10^3/uL 0.05 Sodium (136-145) mmol/L 129 L Potassium (3.5-5.1) mmol/L 4.2 Chloride (98-107) mmol/L 95 L Carbon Dioxide (21.0-32.0) mmol/L 27.6 Anion Gap (3-11) mmol/L 6.4 BUN (7-18) mg/dL 14 Creatinine (0.70-1.30) mg/dL 0.9 Estimated GFR/1.73 m2 (mL/min/1.73m2) >= 60.00 Glucose (74-106) mg/dL 94 Calcium (8.5-10.1) mg/dL 8.6 Magnesium (1.8-2.4) mg/dL 2.1 Total Bilirubin (0.2-1.0) mg/dL 0.7 AST (15-37) U/L 13 L ALT (16-63) U/L 24 Alkaline Phosphatase (46-116) U/L 94 Troponin I (<0.06) ng/mL < 0.05 Total Protein (6.4-8.2) g/dL 7.1 Albumin (3.4-5.0) g/dL 3.9 Urine Color (Yellow) Yellow Urine Clarity (Clear) Clear Urine pH (5-8) 7.0 Ur Specific [place] (1.005-1.025) 1.020 Urine Protein (Negative) mg/dL Negative Urine Ketones (Negative) mg/dL Negative Urine Blood (Negative) Trace-intact H Urine Nitrite (Negative) Negative Urine Bilirubin (Negative) Negative Urine Urobilinogen (Up TO 0.2) EU/dL 0.2 Ur Leukocyte Esterase (Negative) Negative Urine RBC (0-2) HPF Urine WBC (0-5) HPF Negative Ur Epithelial Cells (Negative) HPF Negative Urine Crystals (Negative) HPF Negative Urine Bacteria (Negative) HPF Negative Urine Mucus (Negative) Moderate Ur Culture Indicated? No Urine Glucose (Negative) mg/dL Negative ECG Data Attestation: I personally reviewed and interpreted this ECG (s) as follows: Interpretation: Rate of 87, A. fib, no STEMI. HPI General Mode of arrival: ambulatory . Date/Time Provider Initiated Documentation: 01/14/21 13:33 . Limitations to Documentation: no limitations . Information obtained by: patient . HPI Narrative: Pt is a 80-year-old male with a history of CVA, atrial fibrillation and hypertension who presents for altered mental status and slurred speech since 9 AM this morning. Patient presents with his son who states he was not with him today to notice his symptoms. He states the neighbor called him to report that patient appeared confused with slurred speech. Patient does endorse that his speech is slurred. Son states that patient has had had a previous stroke in the past but denies any known residual deficits. He states patient does have slurred speech at times but states this is much worse than usual. He states his mental status is waxing and waning but with generally no the place and person but not specifically know the time. Denies any known fever, recent illness, chest pain, shortness of breath, abdominal pain, nausea, vomiting, headache, dizziness, unilateral weakness or numbness. Related Data Home Medications Medication Instructions Recorded Confirmed clopidogrel [Plavix] 75 mg PO DAILY #30 tab 05/13/17 01/14/21 amlodipine 5 mg PO DAILY 10/17/18 01/14/21 ibuprofen 600 mg PO TID PRN 10/17/18 01/14/21 simvastatin 40 mg PO DAILY 08/13/20 01/14/21 albuterol sulfate [Proventil HFA] 2 puff INHALATION .Q6HRS PRN 01/14/21 01/14/21 budesonide [Pulmicort] 1 mg BID 01/14/21 01/14/21 ipratropium-albuterol 3 ml INHALATION PRN 01/14/21 Previous Rx's Medication Instructions Recorded clopidogrel [Plavix] 75 mg PO DAILY #30 tab 05/13/17 Allergies Allergy/AdvReac Type Severity Reaction Status Date / Time Penicillins Allergy Severe per pcp Unverified 01/14/21 14:11 office aspirin AdvReac Intermediate Skin Rash Unverified 01/14/21 14:11 atenolol AdvReac Intermediate fatigue Unverified 01/14/21 14:11 atorvastatin calcium AdvReac Mild itch Unverified 01/14/21 14:11 [From Lipitor] General LAUREANO: 2 Review of Systems All systems reviewed & are unremarkable except as noted in HPI and below Constitutional Constitutional: Reports as per HPI, Denies chills and Denies fever(s) Eyes Eyes: Denies blurry vision ENT Ears, Nose, Mouth, and Throat: Denies dizziness, Denies sore throat and Denies throat swelling Cardiovascular Cardiovascular: Denies chest pain and Denies dyspnea Respiratory Respiratory: Denies cough and Denies dyspnea Gastrointestinal Gastrointestinal: Denies abdominal pain, Denies diarrhea and Denies vomiting Genitourinary Genitourinary: Denies hematuria and Denies dysuria Musculoskeletal Musculoskeletal: Denies back pain and Denies numbness Integumentary/Breasts Skin/Breast: Denies lesions and Denies rash Neurologic Neurologic: Denies dizziness, Denies localized weakness and Denies numbness Allergic/Immunologic Allergic/Immunologic: Denies throat swelling [facility] Medical History (Updated 01/14/21 @ 16:54 by Carmen Davey DO) CVA (cerebral vascular accident) HTN (hypertension) Surgical History (Updated 02/09/16 @ 11:06 by Gloria Lundy) complex laceration of left upper extremity (01/19/16) Social History Smoking/Tobacco Use Status: Never Smoking risk assessment performed?: Yes Alcohol Intake: former Drug use: Never Details: no alcohol for 30 yrs Do you feel safe at home: Yes Do you feel safe in your relationship?: Yes Exam Const General: cooperative and no acute distress HENMT Head: normal to inspection Face and sinus: normal facial exam Eyes General: appearance normal, both eyes and all related structures Pupils: PERRL EOM: EOM intact bilaterally Neck Neck: normal visual inspection and No submandibular swelling Lymphatic: no lymphadenopathy noted Chest Chest: normal inspection of the chest and no tenderness Resp Effort & Inspection: normal respiratory effort and able to speak in complete sentences Auscultation: clear to auscultation bilaterally Cardio Rate: regular rate Rhythm: regular rhythm GI Inspection: normal to inspection Palpation: soft, not firm, not rigid and nontender Auscultation: normal bowel sounds Skin General skin exam: no rashes or lesions noted Neuro General: patient alert, patient awake and oriented Patient Orientation: Person and Place Cranial Nerves: CN's II-XI intact bilaterally Cognition: normal cognition Speech: abnormal speech slurred Motor: muscle tone normal throughout, strength 5/5 throughout and no pronator d rift Sensory Exam: no sensory deficits noted Extrem General: normal to inspection, full ROM, capillary refill normal, no calf t enderness bilaterally and no edema Psych Appearance: grossly normal Mental Status: mental status grossly normal Speech and Movement: speech and movement normal Affect: normal affect
--- NOTE | 2021-01-14 14:32 | DI.VRAD_ITS ---
PROCEDURE INFORMATION: Exam: XR Chest Exam date and time: 01/14/2021 1:21 PM Age: 80 years old Clinical indication: Other: Possible CVA, R/O acute disease TECHNIQUE: Imaging protocol: XR of the chest. Views: 2 views. COMPARISON: CT CHEST W 12/07/2020 3:20 PM FINDINGS: Lungs: There is no significant airspace consolidation or overt CHF Pleural spaces: A large pleural effusion, or pneumothorax is not seen Heart/Mediastinum: Heart, mediastinum are unremarkable. There is mild vascular calcification at the aortic arch. Bones/joints: The bony structures are osteopenic. Degenerative changes are seen in the spine. Degenerative changes are seen in the shoulders left greater than right. There is no acute bony abnormality IMPRESSION: No acute findings by plain film exam. No evidence of active airspace disease Dictated and Authenticated by: Elba Mason MD. Ordering:CARSON Morales MD
[2021-01-14 14:35] LABS: Abs Immature Grans 0.02 10^3/uL (0.0-0.06); Absolute Basophil Count 0.05 10^3/uL (0.0-0.2); Absolute Eosinophil Count 0.12 10^3/uL (0.0-0.7); Absolute Lymphocyte Count 1.11 10^3/uL (1.2-3.4); Absolute Monocyte Count 0.62 10^3/uL (0.1-0.8); Absolute Neutrophil Count 3.74 10^3/uL (1.2-6.7); Basophils % 0.9; Eosinophils % 2.1; HCT 40.6 % (40.0-50.0); HGB 13.3 g/dL (13.5-17.5); Immature Grans % 0.4; Lymphocytes % 19.6; MCH 28.5 pg (27.0-33.0); MCHC 32.8 % (32.0-36.0); MCV 87.1 fL (80-95); MPV 11.7 fL (8.0-11.0); Nucleated RBC 0 %; Platelet Count 192 10^3/uL (130-400); RBC 4.66 10^6/uL (4.36-5.78); RDW 13.7 % (11.8-14.1); RDW-SD 43.8 fL; WBC 5.66 10^3/uL (4.4-10.8)
[2021-01-14] MEDS: Omnipaque 350 MG/ML 100 ML BTL IV (14:46)
[2021-01-14] MEDS: Normal Saline Flush 10 ML SYR IVP ×2 (14:47→20:21)
[2021-01-14 14:51] LABS: Bilirubin Negative (Negative); Blood Trace-intact (Negative); Clarity Clear (Clear); Glucose Negative (Negative); Ketones Negative (Negative); Leukocyte Esterase Negative (Negative); Nitrite Negative (Negative); Urobilinogen 0.2 EU/dL (Up TO 0.2)
[2021-01-14 14:59] LABS: ALT 24 U/L (16-63); AST 13 U/L (15-37); Albumin 3.9 g/dL (3.4-5.0); Alkaline Phosphatase 94 U/L (46-116); Anion Gap 6.4 mmol/L (3-11); BUN 14 mg/dL (7-18); Bilirubin, Total 0.7 mg/dL (0.2-1.0); CO2 27.6 mmol/L (21.0-32.0); CREATININE 0.9 mg/dL (0.70-1.30); Calcium 8.6 mg/dL (8.5-10.1); Chloride 95 mmol/L (98-107); Glucose 94 mg/dL (74-106); Magnesium 2.1 mg/dL (1.8-2.4); Potassium 4.2 mmol/L (3.5-5.1); Sodium 129 mmol/L (136-145); Total Protein 7.1 g/dL (6.4-8.2)
[2021-01-14 15:00] LABS: Troponin I < 0.05 ng/mL (<0.06)
--- NOTE | 2021-01-14 15:00 | RT.EKG_ITS ---
APPROVED REPORT Exam: Resting ECG Reason for Exam: cva Patient Location: E HR:87 bpm ECG Measurements Heart Rate 87 AXIS GA [id number] P [id number] QRSd 98 QRS 7 QT 380 T 34 QTc 457 Conclusion Atrial fibrillation...V-rate 62- 83, irreg A-activity. Afib. No STEMI. I have reviewed and interpreted ECG and agree with software generated interpretation.
[2021-01-14 15:05] LABS: Bacteria Negative HPF (Negative); C & S Indicated? No; Crystals Negative HPF (Negative); Epithelial Cells Negative HPF (Negative); Mucus Moderate (Negative); WBC Negative HPF (0-5)
--- NOTE | 2021-01-14 15:09 | DI.VRAD_ITS ---
PROCEDURE INFORMATION: Exam: CT Angiography Head With Contrast, Arteriography Exam date and time: 01/14/2021 2:48 PM Age: 80 years old Clinical indication: Other: Possible stroke, R/O acute CVA TECHNIQUE: Imaging protocol: Computed tomography angiography of the head with contrast. Exam focused on the arteries. 3D rendering (Not supervised by radiologist): MIP and/or 3D reconstructed images were created by the technologist. Radiation optimization: All CT scans at this facility use at least one of these dose optimization techniques: automated exposure control; mA and/or kV adjustment per patient size (includes targeted exams where dose is matched to clinical indication); or iterative reconstruction. Contrast material: OMNIPAQUE 350; Contrast volume: 85 ml; Contrast route: INTRAVENOUS (IV); COMPARISON: CT HEAD - STROKE PROTOCOL 01/14/2021 1:30 PM FINDINGS: ANTERIOR CIRCULATION: Right internal carotid artery: There is prominent atherosclerotic plaque involving the right cavernous, supraclinoid ICA. There is mild irregularity, narrowing which appears most prominent in the supraclinoid segment. No aneurysm. Ophthalmic artery identified PCOM identified Right middle cerebral artery: Unremarkable. No occlusion or significant stenosis. No aneurysm. Right anterior cerebral artery: Unremarkable. No occlusion or significant stenosis. No aneurysm. Left internal carotid artery: There is atherosclerotic plaque involving the left ICA particularly the cavernous, supraclinoid left ICA. No aneurysm. Ophthalmic artery identified PCOM identified Left middle cerebral artery: Unremarkable. No occlusion or significant stenosis. No aneurysm. Left anterior cerebral artery: Unremarkable. No occlusion or significant stenosis. No aneurysm. POSTERIOR CIRCULATION: Right vertebral artery: The intradural right vertebral artery is small, hypoplastic particularly beyond the right PICA origin but the vertebrobasilar junction is patent. Left vertebral artery: Left vertebral artery is dominant. There is plaque, calcification involving the intradural left vertebral artery but the vertebrobasilar junction is patent. No aneurysm. Basilar artery: Flow is seen throughout the basilar artery without significant stenosis. Superior cerebellar arteries are identified bilaterally. Anterior inferior cerebellar arteries are identified. Right posterior cerebral artery: Right P1 segment identified. No occlusion or significant stenosis. No aneurysm. Left posterior cerebral artery: Left P1 segment is identified, it is small, hypoplastic.. There is irregularity, narrowing of the left SINTER FEEDER particularly the left P2 segment. However flow is seen distally in the left SINTER FEEDER. No aneurysm. There are no findings to suggest acute dural sinus thrombosis.. Brain: Please see the noncontrast enhanced examination which is dictated as a separate report. There are no new/additional findings identified after contrast administration. There is no evidence of an enhancing intracranial mass. Cerebral ventricles: Ventricular prominence likely is related to central atrophy.. Bones/joints: Unremarkable. No acute fracture. Soft tissues: Unremarkable. 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 It particularly involves both intracranial ICAs. There is mild plaque involving the left vertebral artery and irregularity of the left SINTER FEEDER likely is related to atherosclerotic disease. To better evaluate for the presence of recent, acute or subacute ischemic change MR correlation recommended PROCEDURE INFORMATION: Exam: CT Angiography Neck With Contrast Exam date and time: 01/14/2021 2:48 PM Age: 80 years old Clinical indication: Other: Possible stroke, R/O acute CVA TECHNIQUE: Imaging protocol: Computed tomography angiography of the neck with contrast. 3D rendering (Not supervised by radiologist): MIP and/or 3D reconstructed images were created by the technologist. Radiation optimization: All CT scans at this facility use at least one of these dose optimization techniques: automated exposure control; mA and/or kV adjustment per patient size (includes targeted exams where dose is matched to clinical indication); or iterative reconstruction. Contrast material: OMNIPAQUE 350; Contrast volume: 85 ml; Contrast route: INTRAVENOUS (IV); COMPARISON: CT HEAD - STROKE PROTOCOL 01/14/2021 1:30 PM FINDINGS: CT angiography of the aortic arch demonstrates plaque at the aortic arch but the origins of the brachiocephalic, left common carotid artery left subclavian artery are patent. Flow is seen distally in the subclavian arteries. Right common carotid artery: No stenosis. No dissection or occlusion. Right internal carotid artery: There is plaque at the right carotid bifurcation. There is narrowing of the proximal right ICA but degree of stenosis is not greater than 50%. Flow is seen distally within the right cervical ICA which is mildly tortuous.. No dissection or occlusion. Right external carotid artery: No occlusion or stenosis of the origin. Left common carotid artery: No stenosis. No dissection or occlusion. Left internal carotid artery: There is plaque at the left carotid bifurcation with narrowing of the proximal left ICA which appears mild. Flow is seen distally in the left cervical ICA. No dissection or occlusion. Left external carotid artery: No occlusion or stenosis of the origin. Right vertebral artery: No stenosis. No dissection or occlusion. Left vertebral artery: There is plaque at the left vertebral artery origin but it is patent. Left vertebral artery is dominant in the neck.. No dissection or occlusion. Soft tissues: There is no evidence of a discrete soft tissue mass in the neck. There is no significant adenopathy. No significant airspace consolidation is identified at the lung apices.. Bones/joints: There are findings consistent with cervical spondylosis, degenerative disc disease. There is prominence of the cervical lordosis. There is no acute or destructive bony abnormality. IMPRESSION: There is atherosclerotic plaque noted at both carotid bifurcations with narrowing of the proximal ICAs which is not hemodynamically significant Cervical spondylosis, disc disease.. REFERENCES: NASCET CRITERIA. The degree of internal carotid artery stenosis is based on NASCET criteria. Normal is no stenosis. Mild is less than 50% stenosis. Moderate is 50-69% stenosis. Severe is 70% to 99% stenosis. Total occlusion is no detectable patent lumen. Dictated and Authenticated by: Elba Mason MD. Ordering:CARSON Morales MD
[2021-01-14] MEDS: Normal Saline 500 ML IV (15:52)
[2021-01-14 16:34] LABS: Source Nasal/Nares
[2021-01-14 17:26] LABS: COVID-19 PCR Negative (Negative)
--- NOTE | 2021-01-14 17:38 | HPE_ITS ---
Date of service: 01/14/21 Time of Service: 17:38 Assessment and Plan Assessment and plan (1) Expressive aphasia: Status: Acute Assessment and plan: Improving per son and patient. Cont Plavix. Allergic to aspirin. D/C his simvistatin and begin Crestor 40mg daily. He is also on amlodipine so simvistatin at an appropriate dose is contraindicated. MRI brain ordered. Echocardiogram ordered. Telemetry; pt in afib with controlled vent response. (2) Altered mental status: Status: Acute Assessment and plan: TIA vs ischemic event. See expressive aphasia (3) CVA (cerebral vascular accident): Status: Inactive Assessment and plan: H/O hemorrhagic stroke. New hemorrhage ruled out by CT. (4) HTN (hypertension): Status: Acute Assessment and plan: Cont amlodipine and monitor. History of Present Illness History of Present Illness Chief Complaint: Slurred speech Narrative: Pt is a 80-year-old male with a history of CVA, atrial fibrillation and hypertension who presented to the ED for altered mental status and slurred speech since 9 AM this morning. Patient presents with his son who states he was not with him today to notice his symptoms. He states the neighbor called him to report that patient appeared confused with slurred speech. Patient endorsed that his speech was slurred. Son stated that patient has had had a previous stroke in the past but denied any known residual deficits. He stated patient does have slurred speech at times but states this is much worse than usual. He stated his mental status is waxing and waning but with generally oriented to place and person but not specifically the time. No known fever, recent illness, chest pain, shortness of breath, abdominal pain, nausea, vomiting, headache, dizziness, unilateral weakness or numbness. A stat CT head which was negative for acute bleed. CTA head and neck imaging noted intracranial atherosclerotic disease but no other acute findings, recommend MRI for further evaluation. EKG notes a rate of 87, atrial fibrillation, no STEMI. Review of previous EKGs note that pt has been in Afib in the past. White cell count normal. Sodium 129. Troponin negative. Urinalysis notes trace blood but otherwise unremarkable. Discussed with [facility] neurology who has no other acute recommendations. Patient already taking Plavix and is allergic to aspirin. Agrees with plan for admission for telemetry monitoring with plan for MRI brain tomorrow to rule out possible embolic CVA. Does not recommend additional anticoagulation at this time. Review of records note that patient had a subarachnoid hemorrhage in 2012. Review of Systems All systems reviewed & are unremarkable except as noted in HPI and below PFSH Medical History (Updated 01/24/21 @ 13:30 by Montez Duncan MD) CVA (cerebral vascular accident) HTN (hypertension) Surgical History complex laceration of left upper extremity (01/19/16) Social History Smoking/Tobacco Use Status: Never Smoking risk assessment performed?: Yes Alcohol Intake: former Drug use: Never Details: no alcohol for 30 yrs Do you feel safe at home: Yes Do you feel safe in your relationship?: Yes Meds Allergies and Home Medications Allergies Allergy/AdvReac Type Severity Reaction Status Date / Time Penicillins Allergy Severe per pcp Unverified 01/14/21 14:11 office aspirin AdvReac Intermediate Skin Rash Unverified 01/14/21 14:11 atenolol AdvReac Intermediate fatigue Unverified 01/14/21 14:11 atorvastatin calcium AdvReac Mild itch Unverified 01/14/21 14:11 [From Lipitor] Home Medications Medication Instructions Recorded Confirmed Type clopidogrel [Plavix] 75 mg PO DAILY #30 tab 05/13/17 01/14/21 Rx amlodipine 5 mg PO DAILY 10/17/18 01/14/21 History ibuprofen 600 mg PO TID PRN 10/17/18 01/14/21 History albuterol sulfate [Proventil HFA] 2 puff INHALATION .Q6HRS PRN 01/14/21 01/14/21 History budesonide [Pulmicort] 1 mg BID 01/14/21 01/14/21 History ipratropium-albuterol 3 ml INHALATION PRN 01/14/21 History rosuvastatin 40 mg PO DAILY #30 tab 01/15/21 Rx Exam Const General: cooperative and no acute distress HENMT Head: normal to inspection Face and sinus: normal facial exam Eyes General: appearance normal, both eyes and all related structures Pupils: PERRL EOM: EOM intact bilaterally Neck Neck: normal visual inspection and No submandibular swelling Lymphatic: no lymphadenopathy noted Chest Chest: normal inspection of the chest and no tenderness Resp Effort & Inspection: normal respiratory effort and able to speak in complete sentences Auscultation: clear to auscultation bilaterally Cardio Rate: other Rhythm: abnormal rhythm irregularly irregular GI Inspection: normal to inspection Palpation: soft, not firm, not rigid and nontender Auscultation: normal bowel sounds Male General Exam: Yes normal external exam Back/Spine/Pelvis Thoracic/Lumbar Spine: thoracic and lumbar spine normal to inspection Pelvis: no pain with anterior-posterior compression Skin General skin exam: no rashes or lesions noted Neuro General: patient alert, patient awake and oriented Patient Orientation: Person, Place and Time Cranial Nerves: CN's II-XI intact bilaterally Cognition: normal cognition Speech: abnormal speech slurred Motor: muscle tone normal throughout, strength 5/5 throughout and no pronator drift Sensory Exam: no sensory deficits noted Extrem General: normal to inspection, full ROM, capillary refill normal, no calf tenderness bilaterally and no edema Psych Appearance: grossly normal Mental Status: mental status grossly normal Speech and Movement: speech and movement normal Affect: normal affect Results Labs Result diagrams: 01/14/21 14:20 01/15/21 06:25 Labs: Laboratory Results - last 24 hr 01/14/21 01/14/21 01/14/21 14:20 14:20 14:45 WBC 5.66 RBC 4.66 Hgb 13.3 L Hct 40.6 MCV 87.1 MCH 28.5 MCHC 32.8 RDW 13.7 Plt Count 192 MPV 11.7 H Immature Gran % 0.4 Neutrophils % 66.0 Lymphocytes % 19.6 Monocytes % 11.0 Eosinophils % 2.1 Basophils % 0.9 Nucleated RBC % 0 Absolute Neutrophils 3.74 Absolute Lymphocytes 1.11 L Absolute Monocytes 0.62 Absolute Eosinophils 0.12 Absolute Basophils 0.05 Sodium 129 L Potassium 4.2 Chloride 95 L Carbon Dioxide 27.6 Anion Gap 6.4 BUN 14 Creatinine 0.9 Estimated GFR/1.73 m2 >= 60.00 Glucose 94 Calcium 8.6 Magnesium 2.1 Total Bilirubin 0.7 AST 13 L ALT 24 Alkaline Phosphatase 94 Troponin I < 0.05 Total Protein 7.1 Albumin 3.9 Urine Color Yellow Urine Clarity Clear Urine pH 7.0 Ur Specific [place] 1.020 Urine Protein Negative Urine Ketones Negative Urine Blood Trace-intact H Urine Nitrite Negative Urine Bilirubin Negative Urine Urobilinogen 0.2 Ur Leukocyte Esterase Negative Urine RBC Urine WBC Negative Ur Epithelial Cells Negative Urine Crystals Negative Urine Bacteria Negative Urine Mucus Moderate Ur Culture Indicated? No Urine Glucose Negative COVID-19 Source SARS-CoV-2 (PCR) 01/14/21 16:25 WBC RBC Hgb Hct MCV MCH MCHC RDW Plt Count MPV Immature Gran % Neutrophils % Lymphocytes % Monocytes % Eosinophils % Basophils % Nucleated RBC % Absolute Neutrophils Absolute Lymphocytes Absolute Monocytes Absolute Eosinophils Absolute Basophils Sodium Potassium Chloride Carbon Dioxide Anion Gap BUN Creatinine Estimated GFR/1.73 m2 Glucose Calcium Magnesium Total Bilirubin AST ALT Alkaline Phosphatase Troponin I Total Protein Albumin Urine Color Urine Clarity Urine pH Ur Specific [place] Urine Protein Urine Ketones Urine Blood Urine Nitrite Urine Bilirubin Urine Urobilinogen Ur Leukocyte Esterase Urine RBC Urine WBC Ur Epithelial Cells Urine Crystals Urine Bacteria Urine Mucus Ur Culture Indicated? Urine Glucose COVID-19 Source Nasal/Nares SARS-CoV-2 (PCR) Negative Last Vital Signs Temp 36.5 C 01/14/21 13:46 Pulse 84 01/14/21 15:16 Resp 17 01/14/21 15:16 BP 120/64 01/14/21 15:16 Pulse Ox 98 01/14/21 15:16
[2021-01-14] MEDS: Mylanta Suspension 30 ML CUP PO ×2 (18:49→21:18)
[2021-01-14] MEDS: Rosuvastatin 10 MG TAB 30 MG PO (20:21)
[2021-01-14] MEDS: Budesonide 0.5 MG/2 ML UPD VIAL 1 MG UPD (20:21)
[2021-01-15] MEDS: Melatonin 3 MG TAB PO (00:16)
[2021-01-15] MEDS: Acetaminophen 325 MG TAB 650 MG PO (00:16)
[2021-01-15 01:13] VITALS: PULSE 90
[2021-01-15 07:00] VITALS: PULSE 70
[2021-01-15 07:00] LABS: Anion Gap 7.9 mmol/L (3-11); BUN 8 mg/dL (7-18); CO2 27.1 mmol/L (21.0-32.0); CREATININE 0.9 mg/dL (0.70-1.30); Calcium 8.5 mg/dL (8.5-10.1); Chloride 100 mmol/L (98-107); Glucose 94 mg/dL (74-106); Potassium 4.2 mmol/L (3.5-5.1); Sodium 135 mmol/L (136-145)
[2021-01-15 07:39] VITALS: BP 114/71; PULSE 81; RESP 24; TEMP 36.5; O2SAT 97
[2021-01-15] MEDS: amLODIPine 5 MG TAB PO (07:58)
[2021-01-15] MEDS: Clopidogrel 75 MG TAB PO (07:59)
[2021-01-15] MEDS: Mylanta Suspension 30 ML CUP PO (07:59)
--- NOTE | 2021-01-15 10:54 | NUR.NOTE ---
Nursing Note: Elba, daughter in law, contacted unit, requested to be contacted at [phone] with any updates or concerns
[2021-01-15 10:58] VITALS: PULSE 102; O2SAT 98
--- NOTE | 2021-01-15 11:59 | INITIAL_ITS ---
- If Service Date Differs Date of service: 01/15/21 Time of Service: 11:59 Care Management Initial Assess REASON FOR HOSPITALIZATION:: Expressive Aphasia PAST MEDICAL HISTORY/PAST SURGICAL HISTORY:: Medical History. CVA (cerebral vascular accident). HTN (hypertension). Surgical History. complex laceration of left upper extremity (01/19/16) PREVIOUS FUNCTIONAL STATUS/SOCIAL/FAMILY SUPPORTS:: Sg lives in [facility] [place] [place] [facility]. He has four children who live nearby and are supportive. He is independent at baseline. CURRENT FUNCTIONAL STATUS:: Sg was sitting up on the edge of the bed when CM met with him. His son, Alvarez was in the room. Sg' speech was garbled, which he stated gets worse when he is tired. He reported that he is feeling better and is waiting to hear the results of his MRI and echo from earlier today. CM asked the MD to meet with him and his son as soon as he sees the results. CM will continue to follow. ADVANCE DIRECTIVES:: None on file. Has patient been provided with info about the portal/API?: Yes Did the patient sign up for the portal?: No CODE STATUS:: Full Code INSURANCE COVERAGE / FINANCIAL ISSUES:: [facility]/ [place] CURRENT HOME/COMMUNITY SERVICES/EQUIPMENT:: No current services. He has a cane, raised toilet seat and a shower chair at home. PRIMARY CARE PHYSICIAN:: Kathy Cardoza POTENTIAL DISCHARGE NEEDS:: Evaluation for further needs, follow up appoin tments. PATIENT/FAMILY EDUCATION NEEDS:: Review discharge instructions regarding activity levels and medications, discussion of self care needs and goals of care. ANTICIPATED BARRIERS TO DISCHARGE:: None anticipated at this time. TRANSPORTATION:: Via private vehicle by family. PLAN:: Anticipate Sg will return home when medically cleared by MD. His family will transport him via private vehicle when ready. He will follow up with his PCP and discharge plan of care. CM will continue to follow.
--- NOTE | 2021-01-15 12:52 | DI.US_ITS ---
APPROVED REPORT EXAM: Comprehensive 2D, Doppler, and color-flow Echocardiogram Patient Location: In-Patient Room/Bed: 207 Indications: Expressive aphasia, A Fib, CVA, HTN Other Information Study Quality: Adequate Conclusion Normal left ventricular wall thickness and chamber size. Estimated ejection fraction is 55%. There are no segmental wall motion abnormalities Normal right ventricular size and systolic function The left atrium is mildly dilated. The right atrium is normal in size The aortic valve is sclerotic and trileaflet with mild aortic stenosis. Peak gradient is 25, mean 14 mmHg, calculated aortic valve area is 1.27 cm??. There is trace aortic regurgitation Moderate mitral annular calcification. Mild mitral regurgitation Trace pulmonic and tricuspid regurgitation. Normal estimated right ventricular systolic pressure Mildly dilated ascending aorta, 3.59 cm Wall motion Left Ventricle The left ventricle is normal size. Left ventricular systolic function is borderline. There is normal left ventricular wall thickness. There is no ventricular septal defect visualized. LVEF is 55%. Right Ventricle The right ventricle is normal size. The right ventricular systolic function is normal. The RVSP is 26 .2 mmHg. Atria Left atrium is mildly dilated. The right atrium size is normal. The interatrial septum is intact with no evidence for an atrial septal defect. Aortic Valve Aortic valve is calcified. Mild aortic stenosis. Peak aortic valve gradient is 24.3mmHg. Highest mean aortic valve gradient is 14.2mmHg. Calculated WILL by the continuity equation is 1.17cm2. Trace aorti c regurgitation. Mitral Valve Moderate mitral annular calcification. No evidence of mitral valve stenosis. Mild mitral regurgitatio n. Tricuspid Valve The tricuspid valve is normal in structure. There is no tricuspid valve stenosis. Trace tricuspid reg urgitation. Pulmonic Valve The pulmonary valve is normal in structure. There is no pulmonic valvular stenosis. Trace pulmonic re gurgitation. Great Vessels The aortic root is normal in size. The ascending aorta is mildly dilated. Aortic arch is not well vis ualized. IVC is normal in size and collapses >50% with inspiration. Pericardium There is no pericardial effusion. 2D Dimensions IVSD d PLAX 1.07 cm M: 0.6-1.2 LV Vol A2C d MOD 130.2 mL LVPW d PLAX 1.08 cm M: 0.6 - 1.2 LV Vol A4C d MOD 131.1 mL LVID d PLAX 4.75 cm M: 4.2 - 5.8 LA vol/ BSA A2C s A-L 44.0 mL/m2 LVDs 3.55 cm M: 2.5 - 4.0 LA vol/ BSA A4C s A-L 37.5 mL/m2 Ao Root d 3.41 cm M: 3.1 - 3.7 LA Vol/ BSA Biplane s A-L 41.0 mL/m2 RA Area A4C 18.65 cm2 LA Area A4C s MOD 23.61 cm2 RA Vol/ BSA A4C s A-L 28.0 mL/m2 LA Area A2C s MOD 25.32 cm2 Ao Asc Diam d 3.59 cm M: 2.6 - 3.4 LV EF A4C MOD 51.9 % LV EF Teichholz 49.8 % LV EF A2C MOD 50.0 % LVEF (Naylor's) 50.62 % M: 52 - 72 LV EF Biplane MOD 50.6 % LV Volume 99.63 mL M: 62 - 150 SV 67.12 mL LV Volume Index 50.06 mL/m2 M: 34 - 74 SV Index 33.75 mL/m2 LV Vol Biplane MOD 132.6 mL FS 25.20 % M-Mode TAPSE 2.20 cm (M/F) >1.7 LV Diastology MV E' medial 0.078 (>0.07 m/s) MV E Vmax 1.12 (0.4-1.3 m/s) LV E/e MED 14.35 (<14) MV E' lateral 0.095 (>0.1 m/s) LV E/e LAT 11.75 (<14) MV E/E' medial 14.38 MV E/E' lateral 11.79 Aortic Valve LVOT Area 3.80 cm2 AoV Area Vmax 1.17 cm2 LVOT Vmax 0.76 m/s AoV Area/ BSA (Vmax) 0.59 cm2/m2 LVOT Mean Myron. 0.60 m/s WILL Mean Myron. 1.24 cm2 LVOT Peak Grad 2.3 mmHg WILL Mean Myron. Index 0.62 cm2/m2 LVOT Mean Grad 1.6 mmHg LVOT VTI 0.163 m LVOT Diam s 2.15 cm AoV Vmax 2.46 m/s Velocity Ratio 0.30 AoV Mean Myron. 1.83 m/s AoV Peak Grad 24.3 mmHg LVOT SV 62.03 mL AoV Mean Grad 14.5 mmHg AoV VTI 0.490 m AoV Area VTI 1.27 cm2 AoV Area/ BSA (VTI) 0.64 cm/m2 Mitral Valve MV DT 258 (160-240 msec) MR Vmax 4.77 m/s MV PHT 75 msec MR VTI 1.784 m MV Area PHT 2.94 cm2 MR Peak Grad 90.9 mmHg MV VTI 0.281 m MR Mean Grad 66.3 mmHg MV Area VTI 2.21 (4.0-6.0 cm2) Pulmonary Valve PV Vmax 1.09 (0.5-1.5 m/s) RVOT Peak Gr. 2.16 mmHg PV Peak Grad 4.8 mmHg RVOT Mean Gr. 0.95 mmHg PV Mean Grad 2.4 mmHg RVOT VTI 0.146 m PV VTI 0.211 m RVOT Vmax 0.74 m/s Tricuspid Valve TR Peak Grad 23.1 mmHg TR Vmax 2.41 m/s RA Pressure 3.00 mmHg RVSP (TR) 26.2 mmHg
--- NOTE | 2021-01-15 13:00 | DI.MRI_ITS ---
Exam(s) MR BRAIN WO EXAM: MR BRAIN WO CLINICAL HISTORY: Expressive aphasia and afib. Previous CVA TECHNIQUE: Multiplanar multisequence MRI of the brain was performed. COMPARISON: CT CT BRAIN NECK CTA from 01/14/2021 FINDINGS: CEREBRAL PARENCHYMA: There is no evidence of intracranial hemorrhage, mass effect, or shift of midline structures. There are no extra-axial fluid collections. Ventricles are not enlarged or shifted. There is no significant focal signal abnormality in the cerebellar hemispheres. However, there is foc us of signal abnormality in the right anterior tariq which also exhibits significant focal signal abno rmality on diffusion imaging and is consistent with acute ischemic infarct at this level, nonhemorrha gic. Flow void is evident within the basilar artery. There is significant periventricular white matter signal change chronic small vessel disease. Also no n recent appearing 6 millimeter lacunar infarct in the left periventricular white matter. None of the se cortical areas exhibit abnormal signal on diffusion imaging and no evidence of hemorrhage. PITUITARY GLAND: No mass nor parasellar abnormality. No obvious abnormality in the cavernous sinuses. FLOW VOIDS: The expected flow void are noted. No evidence of obvious aneurysm nor obvious vascular ma lformation. PARANASAL SINUSES: There is a fluid level in the left maxillary sinus. Right maxillary sinus is clear as are the sphenoid sinuses and ethmoidal air cells. Some mucosal thickening noted in the right fron edgardo sinus. ORBITS: No obvious findings. IMPRESSION: The most significant finding here is a 5 millimeter area of signal abnormality in the right side of t he tariq which exhibits signal abnormality on diffusion imaging and is consistent with a acute nonhemo rrhagic ischemic event at this level. There are no other areas of abnormal signal on diffusion imagin g. Abundant periventricular white matter disease noted, this of chronic nature. Sinusitis findings as described above. Fluid level in left maxillary sinus and mucosal thickening in the right frontal sinus. DATA REPOSITORY:
--- NOTE | 2021-01-15 14:10 | CHAPLAIN ---
Sg in resting in bed when I visited. It was difficult for me to understand some of what he was saying, but he was fine with having a conversation and didn't seem to mind that I couldn't follow all of what he said. He told me he hadn't been in touch with any family, but the Care Managers' notes explain that he has children in the area who are support. He doesn't like to watch tv, so he was just lying in bed. He said he had everything he needed when I asked if I could get him anything.
[2021-01-15 15:06] VITALS: PULSE 83
[2021-01-15 16:35] VITALS: BP 132/89; PULSE 90; RESP 18; TEMP 36.4; O2SAT 91
--- NOTE | 2021-01-15 17:54 | W.PM.DS.N ---
Date of service: 01/15/21 Time of Service: 17:55 Discharge Plan Disposition Patient Disposition: HOME Condition: Stable Discharge Details Reason For Visit: Expressive Aphasia Admit Date/Time: 01/14/21 15:25 Admit Provider: Montez Duncan Attending Provider: Montez Duncan Primary Care Provider: Kathy Cardoza Hospital Course Hospital Course: Pt is a 80-year-old male with a history of CVA, atrial fibrillation and hypertension who presented to the ED for altered mental status and slurred speech since 9 AM this morning. Patient presents with his son who states he was not with him today to notice his symptoms. He states the neighbor called him to report that patient appeared confused with slurred speech. Patient endorsed that his speech was slurred. Son stated that patient has had had a previous stroke in the past but denied any known residual deficits. He stated patient does have slurred speech at times but states this is much worse than usual. He stated his mental status is waxing and waning but with generally oriented to place and person but not specifically the time. No known fever, recent illness, chest pain, shortness of breath, abdominal pain, nausea, vomiting, headache, dizziness, unilateral weakness or numbness. A stat CT head which was negative for acute bleed. CTA head and neck imaging noted intracranial atherosclerotic disease but no other acute findings, recommend MRI for further evaluation. EKG notes a rate of 87, atrial fibrillation, no STEMI. Review of previous EKGs note that pt has been in Afib in the past. White cell count normal. Sodium 129. Troponin negative. Urinalysis notes trace blood but otherwise unremarkable. Discussed with [facility] neurology who has no other acute recommendations. Patient already taking Plavix and is allergic to aspirin. Agrees with plan for admission for telemetry monitoring with plan for MRI brain tomorrow to rule out possible embolic CVA. Does not recommend additional anticoagulation at this time. Review of records note that patient had a subarachnoid hemorrhage in 2011. Echocardiogram: EF of 55%. No thrombus noted. MRI head: The most significant finding here is a 5 millimeter area of signal abnormality in the right side of the tariq which exhibits signal abnormality on diffusion imaging and is consistent with a acute nonhemorrhagic ischemic event at this level. There are no other areas of abnormal signal on diffusion imaging. Abundant periventricular white matter disease noted, this of chronic nature. D/C on Rosuvastatin and Plavix. Encourage blood pressure control. Follow up with PCP in 1-2 weeks. Home Meds and New Rx's Prescriptions: New rosuvastatin 40 mg tablet 40 mg PO DAILY Qty: 30 RF: 0 Continued clopidogrel [Plavix] 75 MG tablet 75 mg PO DAILY Qty: 30 RF: 0 amlodipine 5 mg Tablet 5 mg PO DAILY RF: 0 ibuprofen 600 mg Tablet 600 mg PO TID PRNRF: 0 ipratropium-albuterol 0.5 mg-3 mg(2.5 mg base)/3 mL Solution For Nebulization 3 ml INHALATION PRNRF: 0 albuterol sulfate [Proventil HFA] 90 mcg/actuation Hfa Aerosol Inhaler 2 puff INHALATION .Q6HRS PRNRF: 0 budesonide [Pulmicort] 1 mg/2 mL Suspension For Nebulization 1 mg BID RF: 0 Discontinued simvastatin 40 mg tablet 40 mg PO DAILY RF: 0 Discharge Instructions Instructions: Expressive Aphasia Exercises (DC), Altered Mental Status (ED) Stand Alone Forms: Nursing Discharge Form Referrals: Kathy Cardoza PA [Primary Care Provider] - (Call PCP in morning to make follow up appointment for 1-2 weeks.) Activity:: Activity as Tolerated Equipment/Supplies:: No Equipment Needed Diet:: Heart Healthy Discharge Orders Discharge Orders: Discharge Order (Routine); Ordered 01/15/21 Ordered By: Montez Duncan Discharge Data Discharge Date/Time-TO BE ENTERED AT DEPARTURE: 01/15/21 18:42 DS: Summary Time Spent with Patient providing and/or coordinating discharge services: Greater than 30 minutes Status at Discharge Functional status at discharge: independent ambulation Overall status at discharge: patient is back to baseline Mental Status: mental status grossly normal Speech and Movement: slurred speech (Mild; baseline per son and patient) Mood: congruent mood Affect: normal affect Exam Psych Mental Status: mental status grossly normal Mood: congruent mood Affect: normal affect DS: Data Vitals/I&O Vitals and I&O: Vital Signs Temperature 36.4 C L 01/15/21 16:35 Temperature Source Tympanic 01/15/21 16:35 Pulse 90 01/15/21 16:35 Pulse Rhythm Irregular 01/15/21 10:58 Pulse 84 01/14/21 17:31 Respiratory Rate 18 01/15/21 16:35 Respiratory Effort 01/15/21 10:58 Respiratory Depth Normal 01/15/21 10:58 Respiratory Pattern Normal 01/15/21 10:58 Blood Pressure 132/89 01/15/21 16:35 Blood Pressure Mean 97 01/14/21 17:31 Blood Pressure Position Supine 01/14/21 13:46 Pulse Oximetry 91 L 01/15/21 16:35 Oxygen Delivery Method Room Air 01/15/21 16:35 Oxygen Flow Rate 0 01/15/21 16:35 Pain Level 0 01/15/21 16:35 Intake & Output 01/14/21 01/15/21 01/15/21 23:59 11:59 23:59 Intake Total 500 / 860 360 / 860 Output Total 1150 / 1150 350 / 400 50 / 400 Balance -1150 / -1150 150 / 460 310 / 460 Weight 83.4 kg 81.7 kg Intake: Oral 500 / 860 360 / 860 Output: Urine 1150 / 1150 350 / 400 50 / 400 Other: Urine Color Yellow Pale Light Sharon Straw Yellow Urine Appearance Clear Clear Urine Odor Normal Normal Normal Voiding Methods Urinal Urinal Urinal Data Completed and Pending Labs on day of discharge: Labs from last 24 hours 01/15/21 06:25 Sodium 135 L Potassium 4.2 Chloride 100 Carbon Dioxide 27.1 Anion Gap 7.9 BUN 8 D Creatinine 0.9 Estimated GFR/1.73 m2 >= 60.00 Glucose 94 Calcium 8.5 [facility] Medical History (Updated 01/24/21 @ 13:30 by Montez Duncan MD) CVA (cerebral vascular accident) HTN (hypertension) Surgical History complex laceration of left upper extremity (01/19/16) Social History Smoking/Tobacco Use Status: Never Smoking risk assessment performed?: Yes Alcohol Intake: former Drug use: Never Details: no alcohol for 30 yrs Do you feel safe at home: Yes Do you feel safe in your relationship?: Yes
== END 2021-01-15 18:42 | disposition home or self-care (01) | DRG 93 ==
LOC: ER 16:54 → MS 17:51
PROVIDERS: Admitting Provider Family Medicine; Emergency Provider Physician Assistant; PCP Physician Assistant Medical; Visit Provider Family Medicine
DX: R47.01 Aphasia (principal); R41.82 Altered mental status, unspecified; I10 Essential (primary) hypertension; Z20.822 Contact with and (suspected) exposure to COVID-19; I48.91 Unspecified atrial fibrillation; Z86.73 Personal history of transient ischemic attack (TIA), and cerebral infarction without residual deficits; Z79.01 Long term (current) use of anticoagulants
CPT/HCPCS: 36415; 70496; 70498; 80048; 80053; 87635; 93005; 93306; 70450; 70551; 71046; 81003; 81015; 83735; 84484; 85025; 93010; 99222; 99238; J3490; J7626

== ENCOUNTER 2021-03-14 11:35 | Inpatient (IN) | payer MEDICARE, SELFPAY ==
[2021-03-14] VITALS (69 sets, daily range): BP systolic 108–152; BP diastolic 69–97; PULSE 72–153; RESP 15–28; TEMP 35.7–36.8; O2SAT 92–98
--- NOTE | 2021-03-14 11:30 | RT.EKG_ITS ---
APPROVED REPORT Exam: Resting ECG Reason for Exam: possible stroke Patient Location: E HR:115 bpm ECG Measurements Heart Rate 115 AXIS MI [id number] P [id number] QRSd 91 QRS 14 QT 318 T 42 QTc 441 Conclusion Atrial fibrillation Ventricular premature complex...V complex w/ short R-R interval
--- NOTE | 2021-03-14 11:48 | W.ED.GENAD ---
Discharge Plan Disposition Patient Disposition: [facility] INPATIENT Condition: Serious Discharge Details Clinical Impression: Expressive aphasia, Altered mental status Primary Care Provider: Kathy Cardoza ED Provider: Jose D Driscoll Home Meds and New Rx's Prescriptions: No Action clopidogrel [Plavix] 75 MG tablet 75 mg PO DAILY Qty: 30 RF: 0 amlodipine 5 mg Tablet 5 mg PO DAILY RF: 0 ibuprofen 600 mg Tablet 600 mg PO TID PRNRF: 0 ipratropium-albuterol 0.5 mg-3 mg(2.5 mg base)/3 mL Solution For Nebulization 3 ml INHALATION Q6H PRNRF: 0 albuterol sulfate [Proventil HFA] 90 mcg/actuation Hfa Aerosol Inhaler 2 puff INHALATION .Q6HRS PRNRF: 0 budesonide [Pulmicort] 1 mg/2 mL Suspension For Nebulization 1 mg BID RF: 0 rosuvastatin 40 mg tablet 40 mg PO DAILY Qty: 30 RF: 0 Medical Decision Making 80-year-old gentleman, past medical history of pontine CVA, A. fib, hypertension, expressive aphasia, currently on Plavix, living at home with his 2 grandsons presents today for altered mental status, last known normal time sometime last night or very early this morning, it has been at least 4 hours. Patient omitted to our facility on 01-14 for similar presentation and subsequent MRI showed tariq nonhemorrhagic CVA the following day. Patient denies recent illness or trauma, denies any pain. Given his age, recent hospitalization, multiple comorbidities, will obtain stroke protocol CTA initiate work-up. Case was discussed with Dr. Hayes. Patient appears awake, alert, able to follow command. Initial blood pressure is 137/78, he is afebrile, O2 sats 96% on room air. Pulse on the monitor is 114, appears to be in A. fib, patient with known A. fib. CT imaging of the brain, stroke protocol negative per radiology Laboratory values reveal normal white count, no evidence of anemia, platelet count of 184. Chemistries are all unremarkable, troponin less than 0.05. Urinalysis with trace ketones. Covid test pending. It did appear as though the patient went into RVR at 1 point, heart rate in the 140s, this occurred when he was standing giving a urine sample. Upon sitting back down heart rate is in the 90s, will hold on any labetalol. I spoke with the patient, his son, and eventually the [id number] on the phone. There was a question if the patient had fallen over the weekend, potentially injuring his abdomen. Patient denies any abdominal pain. There was also a question if there may have been a small amount of blood in his stool. Patient denies black tarry stools or bright red blood in his stools. No evidence of hypotension or anemia. I see no clear indication for CT imaging of the abdomen and/or pelvis emergently. Patient remains awake, alert, oriented to self. Continues to answer questions yes and or no but no full sentences. Recent history of nonhemorrhagic CVA, neurology was involved and did not recommend any further treatment per medical records on 01-15. Given the timeline of symptoms, patient does not appear to be a candidate for more aggressive treatment today. Patient likely not safe to be discharged home in his current condition. I was able to review the patient CODE STATUS, he does not want CPR but was open to a ventilator for a short period of time. Case discussed with our hospitalist team, Dr. Duncan, he is agreeable to admission. Patient will likely require additional work-up including MRI and potential placement for rehab or additional resources at home as it sounds as though he is deteriorating over the past month and a half and potentially could use home health. I am writing holding orders for admission. It was later brought to my attention that we may not have any capacity for admission. At this time I am awaiting to see what happens in our ICU and on the [facility] floor, based upon that I may need to begin potential transfer. Medical Records Medical records reviewed: Yes I reviewed the patient's medical records. Imaging Data Radiologic Study: Attestation: I personally reviewed and interpreted this imaging study as follows: Imaging: CT Scan Radiologist's impression: EXAM CT HEAD - STROKE PROTOCOL CLINICAL HISTORY aphasia. [] TECHNIQUE Imaging Protocol: Axial computed tomography images with coronal and sagittal reformatted images were created and reviewed COMPARISON [CT CT HEAD - STROKE PROTOCOL from 01/14/[address] BRAIN NECK CTA from 01/14/[address] HEAD - STROKE PROTOCOL from 01/14/2021 ] [] FINDINGS Ventricles and Extra axial spaces: [Normal in size and morphology for the patient's age.] [] Hemorrhage: [None.] [] Cerebral parenchyma: [No acute territorial infarct. Marked decreased attenuation in the white matter consistent with small vessel ischemic disease.] [] Midline shift: [None.] [] Brainstem/Cerebellum: [Normal.] [] Calvarium: [Normal.] [] Visualized Paranasal sinuses/Mastoids: [Mild mucosal thickening in the left maxillary sinus. The remaining visualized paranasal sinuses and mastoid air cells are clear.] [] Soft Tissues: [Unremarkable.] [] IMPRESSION [No acute intracranial process.] [Results of this exam have been verbally communicated with provider. Lab Data Lab results reviewed: Yes I reviewed the patient's lab results. Labs: Laboratory Tests Range/Units 03/14/21 03/14/21 03/14/21 11:42 11:42 12:15 WBC (4.4-10.8) 10^3/uL 5.48 RBC (4.36-5.78) 10^6/uL 5.15 Hgb (13.5-17.5) g/dL 14.6 Hct (40.0-50.0) % 45.2 MCV (80-95) fL 87.8 MCH (27.0-33.0) pg 28.3 MCHC (32.0-36.0) % 32.3 RDW (11.8-14.1) % 14.2 H Plt Count (130-400) 10^3/uL 184 MPV (8.0-11.0) fL 12.1 H Immature Gran % 0.2 Neutrophils % 66.7 Lymphocytes % 20.4 Monocytes % 10.4 Eosinophils % 1.6 Basophils % 0.7 Nucleated RBC % % 0 Absolute Neutrophils (1.2-6.7) 10^3/uL 3.65 Absolute Lymphocytes (1.2-3.4) 10^3/uL 1.12 L Absolute Monocytes (0.1-0.8) 10^3/uL 0.57 Absolute Eosinophils (0.0-0.7) 10^3/uL 0.09 Absolute Basophils (0.0-0.2) 10^3/uL 0.04 Sodium (136-145) mmol/L 136 Potassium (3.5-5.1) mmol/L 3.9 Chloride (98-107) mmol/L 99 Carbon Dioxide (21.0-32.0) mmol/L 29.3 Anion Gap (3-11) mmol/L 7.7 BUN (7-18) mg/dL 11 Creatinine (0.70-1.30) mg/dL 1.1 Estimated GFR/1.73 m2 (mL/min/1.73m2) >= 60.00 Glucose (74-106) mg/dL 106 Calcium (8.5-10.1) mg/dL 9.1 Magnesium (1.8-2.4) mg/dL 2.2 Total Bilirubin (0.2-1.0) mg/dL 0.8 AST (15-37) U/L 24 ALT (16-63) U/L 30 Alkaline Phosphatase (46-116) U/L 87 Troponin I (<0.06) ng/mL < 0.05 Total Protein (6.4-8.2) g/dL 7.9 Albumin (3.4-5.0) g/dL 4.0 Urine Color (Yellow) Urine Clarity (Clear) Urine pH (5-8) Ur Specific [place] (1.005-1.025) Urine Protein (Negative) mg/dL Urine Ketones (Negative) mg/dL Urine Blood (Negative) Urine Nitrite (Negative) Urine Bilirubin (Negative) Urine Urobilinogen (Up TO 0.2) EU/dL Ur Leukocyte Esterase (Negative) Urine RBC (0-2) HPF Urine WBC (0-5) HPF Ur Epithelial Cells (Negative) HPF Urine Crystals (Negative) HPF Urine Bacteria (Negative) HPF Urine Casts (Negative) LPF Urine Mucus (Negative) Ur Culture Indicated? Urine Glucose (Negative) mg/dL COVID-19 Source Nasal/Nares Range/Units 03/14/21 03/14/21 14:00 14:30 WBC (4.4-10.8) 10^3/uL RBC (4.36-5.78) 10^6/uL Hgb (13.5-17.5) g/dL Hct (40.0-50.0) % MCV (80-95) fL MCH (27.0-33.0) pg MCHC (32.0-36.0) % RDW (11.8-14.1) % Plt Count (130-400) 10^3/uL MPV (8.0-11.0) fL Immature Gran % Neutrophils % Lymphocytes % Monocytes % Eosinophils % Basophils % Nucleated RBC % % Absolute Neutrophils (1.2-6.7) 10^3/uL Absolute Lymphocytes (1.2-3.4) 10^3/uL Absolute Monocytes (0.1-0.8) 10^3/uL Absolute Eosinophils (0.0-0.7) 10^3/uL Absolute Basophils (0.0-0.2) 10^3/uL Sodium (136-145) mmol/L Potassium (3.5-5.1) mmol/L Chloride (98-107) mmol/L Carbon Dioxide (21.0-32.0) mmol/L Anion Gap (3-11) mmol/L BUN (7-18) mg/dL Creatinine (0.70-1.30) mg/dL Estimated GFR/1.73 m2 (mL/min/1.73m2) Glucose (74-106) mg/dL Calcium (8.5-10.1) mg/dL Magnesium (1.8-2.4) mg/dL Total Bilirubin (0.2-1.0) mg/dL AST (15-37) U/L ALT (16-63) U/L Alkaline Phosphatase (46-116) U/L Troponin I (<0.06) ng/mL < 0.05 Total Protein (6.4-8.2) g/dL Albumin (3.4-5.0) g/dL Urine Color (Yellow) Yellow Urine Clarity (Clear) Clear Urine pH (5-8) 6.5 Ur Specific [place] (1.005-1.025) 1.020 Urine Protein (Negative) mg/dL 100 H Urine Ketones (Negative) mg/dL Trace H Urine Blood (Negative) Trace-lysed H Urine Nitrite (Negative) Negative Urine Bilirubin (Negative) Negative Urine Urobilinogen (Up TO 0.2) EU/dL 0.2 Ur Leukocyte Esterase (Negative) Negative Urine RBC (0-2) HPF 0-2 Urine WBC (0-5) HPF Negative Ur Epithelial Cells (Negative) HPF Rare Urine Crystals (Negative) HPF Negative Urine Bacteria (Negative) HPF Negative Urine Casts (Negative) LPF 0-2 Coarse Granular Urine Mucus (Negative) Heavy Ur Culture Indicated? No Urine Glucose (Negative) mg/dL Negative COVID-19 Source ECG Data Attestation: I personally reviewed and interpreted this ECG (s) as follows: Interpretation: Please see official report by Dr. Hayes. Atrial fibrillation, ventricular of 115. Ventricular premature complex, no STEMI HPI General Mode of arrival: ambulatory. Date/Time Provider Initiated Documentation: 03/14/21 11:39. Limitations to Documentation: altered mental status. Information obtained by: patient and family. HPI Narrative: This is an 80-year-old male, past medical history of CVA, hypertension, A. fib, currently on Plavix, who lives at home with his 2 grandsons, presenting to the ER for change in mental status sometime late last night or early this morning, exact time is not known. Either way it has been at least 4 hours. The patient presents with his son, apparently he was noted to be seen by his neighbors this morning walking with a more altered gait than his baseline and not speaking as much as he typically does. Patient is able to answer yes and no questions verbally as well as shake his head but he does not say more than yes or no. Patient denies recent illness or trauma. Patient currently denies any pain. Upon reviewing recent documentation, patient was admitted on 01-14 with a very similar presentation and subsequently discharged on 01-15 after brain MRI showing acute nonischemic CVA of the tariq. Speaking with the patient son, he believes that at one point formal advanced directive paperwork has been signed but he does not know the location, believes that his father would want aggressive medical care. Patient's son is concerned that he is not receiving adequate care at home through his grandchildren, does question if additional resources at home would be beneficial. Related Data Home Medications Medication Instructions Recorded Confirmed clopidogrel [Plavix] 75 mg PO DAILY #30 tab 05/13/17 03/14/21 amlodipine 5 mg PO DAILY 10/17/18 03/14/21 ibuprofen 600 mg PO TID PRN 10/17/18 03/14/21 albuterol sulfate [Proventil HFA] 2 puff INHALATION .Q6HRS PRN 01/14/21 03/14/21 budesonide [Pulmicort] 1 mg BID 01/14/21 03/14/21 ipratropium-albuterol 3 ml INHALATION Q6H PRN 01/14/21 03/14/21 rosuvastatin 40 mg PO DAILY #30 tab 01/15/21 03/14/21 Previous Rx's Medication Instructions Recorded clopidogrel [Plavix] 75 mg PO DAILY #30 tab 05/13/17 rosuvastatin 40 mg PO DAILY #30 tab 01/15/21 Allergies Allergy/AdvReac Type Severity Reaction Status Date / Time Penicillins Allergy Severe per pcp Unverified 01/14/21 14:11 office aspirin AdvReac Intermediate Skin Rash Unverified 01/14/21 14:11 atenolol AdvReac Intermediate fatigue Unverified 01/14/21 14:11 atorvastatin calcium AdvReac Mild itch Unverified 01/14/21 14:11 [From Lipitor] General Stated Complaint: CVA/TIA LAUREANO: 2 Review of Systems Constitutional Constitutional: Denies fatigue, Denies fever(s), Denies headache(s) and Denies weakness Eyes Eyes: Denies change in vision ENT Ears, Nose, Mouth, and Throat: Denies headache(s) and Denies neck pain Cardiovascular Cardiovascular: Denies chest pain and Denies dyspnea Respiratory Respiratory: Denies cough and Denies dyspnea Gastrointestinal Gastrointestinal: Denies abdominal pain, Denies nausea and Denies vomiting Genitourinary Genitourinary: Denies dysuria Musculoskeletal Musculoskeletal: Denies back pain, Denies neck pain, Denies numbness and Denies tingling Integumentary/Breasts Skin/Breast: Denies rash Neurologic Neurologic: Denies headache(s), Denies numbness, Denies tingling and Denies weakness Endocrine Endocrine: Denies fatigue Hematologic/Lymphatic Hematologic/Lymphatic: Reports easy bleeding and Reports easy bruising [facility] Medical History CVA (cerebral vascular accident) HTN (hypertension) Surgical History complex laceration of left upper extremity (01/19/16) Social History Smoking/Tobacco Use Status: Never Smoking risk assessment performed?: Yes Alcohol Intake: former Drug use: Never Details: no alcohol for 30 yrs Do you feel safe at home: Yes Do you feel safe in your relationship?: Yes Exam Const General: cooperative, comfortable, no acute distress and ill appearing chronically Orientation: alert and awake [facility] Head: normal to inspection, normocephalic and atraumatic Face and sinus: normal facial exam Mouth: moist mucous membranes abnormal (dry) Throat: posterior oropharynx normal Eyes General: appearance normal, both eyes and all related structures Alignment and Position: alignment normal Periorbital: periorbital findings normal Eyelids: eyelids normal Conjunctivae: conjunctivae normal Sclera: sclerae normal Cornea: corneas normal Pupils: PERRL EOM: EOM intact bilaterally Direct ophthalmoscopy: normal light reflex Neck Neck: normal visual inspection, full ROM, no meningeal signs, trachea midline, supple and nontender Chest Chest: normal inspection of the chest Resp Effort & Inspection: normal respiratory effort and able to speak in complete sentences Auscultation: clear to auscultation bilaterally Cardio Rate: regular rate Rhythm: regular rhythm GI Inspection: normal to inspection Palpation: soft, not firm, no guarding, no pulsatile masses and nontender Auscultation: normal bowel sounds Back/Spine/Pelvis Back: No back tenderness Skin General skin exam: no rashes or lesions noted Neuro General: patient alert, patient awake, oriented Patient Orientation: Person, moves all extremities and no focal motor deficits Cranial Nerves: CN's II-XI intact bilaterally Speech: other (Answers yes, no, slightly slow) Motor: muscle tone normal throughout, strength 5/5 throughout, no pronator drift, no movement abnormalities noted and no fasciculations Sensory Exam: no sensory deficits noted Extrem General: normal to inspection, full ROM, capillary refill normal, no pedal edema and no calf tenderness Psych Appearance: grossly normal Mental Status: mental status grossly normal Course Vital Signs Vital signs: Vital Signs Temperature 36.4 C L 03/14/21 11:40 Pulse 114 H 03/14/21 11:40 Respiratory Rate 18 03/14/21 11:40 Blood Pressure 137/78 03/14/21 11:40 Pulse Oximetry 96 03/14/21 11:40 Temperature 36.4 C L 03/14/21 11:40 Temperature Source Skin 03/14/21 11:40 Pulse 114 H 03/14/21 11:40 Respiratory Rate 18 03/14/21 11:40 Blood Pressure 137/78 03/14/21 11:40 Pulse Oximetry 96 03/14/21 11:40 Critical Care Time Critical Care Time Critical Care Time: Yes Total Critical Care Time: 45 Attestation: Upon my evaluation, this patient had a high probability of clinically significant, life-threatening deterioration due to their current medical conditions, which required my direct attention, intervention, and personal management. I have personally provided greater than 30 minutes of critical care time exclusive of the time spend on separately billable procedures. Time includes obtaining a history, examining the patient, pulse oximetry, review of laboratory data, radiology results, discussion with consultants, arranging urgent treatment with development of a management plan, evaluation of patient's response to treatment, and monitoring for potential decompensation. Interventions were performed as documented above.
--- NOTE | 2021-03-14 11:58 | DI.CT_ITS ---
Exam(s) CT HEAD - STROKE PROTOCOL EXAM: CT HEAD - STROKE PROTOCOL CLINICAL HISTORY: aphasia. TECHNIQUE: Imaging Protocol: Axial computed tomography images with coronal and sagittal reformatted images were created and reviewed COMPARISON: CT CT HEAD - STROKE PROTOCOL from 01/14/[address] BRAIN NECK CTA from 01/14/[address] HEAD - STROKE PROTOCOL from 01/14/2021 FINDINGS: Ventricles and Extra axial spaces: Normal in size and morphology for the patient's age. Hemorrhage: None. Cerebral parenchyma: No acute territorial infarct. Marked decreased attenuation in the white matter consistent with small vessel ischemic disease. Midline shift: None. Brainstem/Cerebellum: Normal. Calvarium: Normal. Visualized Paranasal sinuses/Mastoids: Mild mucosal thickening in the left maxillary sinus. The nena ining visualized paranasal sinuses and mastoid air cells are clear. Soft Tissues: Unremarkable. IMPRESSION: 1. No acute intracranial process. 2. Results of this exam have been verbally communicated with provider. RADIATION DOSE DELIVERED: 830.33mGy.cm Total DLP DATA REPOSITORY: All CT scans at this facility are submitted to the National Radiology Data Registry (NRDR) Dose Index Registry (DIR) with the [employer] ([employer]). RADIATION OPTIMIZATION: All CT scans at this facility use at least one of these dose optimization te chniques: automated exposure control; mA and/or kV adjustment per patient size (includes targeted exa ms where dose is matched to clinical indication); or iterative reconstruction.
[2021-03-14 12:17] LABS: Abs Immature Grans 0.01 10^3/uL (0.0-0.06); Absolute Basophil Count 0.04 10^3/uL (0.0-0.2); Absolute Eosinophil Count 0.09 10^3/uL (0.0-0.7); Absolute Lymphocyte Count 1.12 10^3/uL (1.2-3.4); Absolute Monocyte Count 0.57 10^3/uL (0.1-0.8); Absolute Neutrophil Count 3.65 10^3/uL (1.2-6.7); Basophils % 0.7; Eosinophils % 1.6; HCT 45.2 % (40.0-50.0); HGB 14.6 g/dL (13.5-17.5); Immature Grans % 0.2; Lymphocytes % 20.4; MCH 28.3 pg (27.0-33.0); MCHC 32.3 % (32.0-36.0); MCV 87.8 fL (80-95); MPV 12.1 fL (8.0-11.0); Monocytes % 10.4; Neutrophils % 66.7; Nucleated RBC 0 %; Platelet Count 184 10^3/uL (130-400); RBC 5.15 10^6/uL (4.36-5.78); RDW 14.2 % (11.8-14.1); RDW-SD 45.5 fL; WBC 5.48 10^3/uL (4.4-10.8)
[2021-03-14 12:19] LABS: Source Nasal/Nares
[2021-03-14 12:36] LABS: ALT 30 U/L (16-63); AST 24 U/L (15-37); Alkaline Phosphatase 87 U/L (46-116); Anion Gap 7.7 mmol/L (3-11); BUN 11 mg/dL (7-18); Bilirubin, Total 0.8 mg/dL (0.2-1.0); CO2 29.3 mmol/L (21.0-32.0); CREATININE 1.1 mg/dL (0.70-1.30); Calcium 9.1 mg/dL (8.5-10.1); Chloride 99 mmol/L (98-107); Glucose 106 mg/dL (74-106); Magnesium 2.2 mg/dL (1.8-2.4); Potassium 3.9 mmol/L (3.5-5.1); Sodium 136 mmol/L (136-145); Total Protein 7.9 g/dL (6.4-8.2)
[2021-03-14 12:38] LABS: Troponin I < 0.05 ng/mL (<0.06)
[2021-03-14] MEDS: Normal Saline 1,000 ML 1000 ML IV (14:08)
[2021-03-14 14:11] LABS: Bilirubin Negative (Negative); Blood Trace-lysed (Negative); Clarity Clear (Clear); Glucose Negative (Negative); Ketones Trace mg/dL (Negative); Leukocyte Esterase Negative (Negative); Nitrite Negative (Negative); Urobilinogen 0.2 EU/dL (Up TO 0.2); pH 6.5 (5-8)
[2021-03-14 14:27] LABS: Bacteria Negative HPF (Negative); Crystals Negative HPF (Negative); Epithelial Cells Rare HPF (Negative); Mucus Heavy (Negative); RBC 0-2 HPF (0-2); WBC Negative HPF (0-5)
[2021-03-14 14:28] LABS: C & S Indicated? No; Casts 0-2 Coarse Granular LPF (Negative)
[2021-03-14 14:53] LABS: Troponin I < 0.05 ng/mL (<0.06)
[2021-03-14 17:58] LABS: COVID-19 PCR Negative (Negative)
--- NOTE | 2021-03-14 21:00 | W.PM.HP.N ---
Date of service: 03/14/21 Time of Service: 21:00 Assessment and Plan Assessment and plan (1) Altered mental status: Status: Resolved Assessment and plan: Given lack of history, what happened this morning remains a guess. The patient has pronounced expressive aphasia, but I am not sure if this is any worse than his baseline since December of 2020. The patient will be ruled out for a recurrent CVA. We will obtain MRI/MRA, neurology consultation, PT, OT, Speech therapy evals. Continue home plavix, statin. Check A1C, lipid panel, B12, TSH. Monitor on tele with neurochecks. (2) Rapid atrial fibrillation: Status: Resolved Assessment and plan: Rates are now controlled. Will rx prn IV lopressor. (3) HTN (hypertension): Status: Chronic Assessment and plan: Hold amlodipine (Permissve hypertension x 24 hrs). (4) Ambulatory dysfunction: Status: Acute Assessment and plan: PT/OT cs. (5) Blood in stool: Status: Acute Assessment and plan: Check hemoccult. Continue plavix for now as H/H stable. (6) DVT prophylaxis: Status: Acute Assessment and plan: Enoxaparin unless hemoccult comes back positive (7) Discharge planning issues: Status: Acute Assessment and plan: DNR Per ED discussion of code status with patient documented in that note. 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 Per ER record, The neighbors calls as patient was not acting right; not able to verbalize, but ambulated well. No clearer explanation for what had happened is available at this time. The patient cannot provide a clear history due to his expressive aphasia, though he expressed that he did not think that there was a difference between how he is right now and how he was yesterday. I have attempted to contact the two phone numbers for the patient's sons in the chart - Alvarez Gomez's phone number is disconnected, and Yoselyn's phone sent me to his voicemail, where I had left a message. Per ER provider, family had stated that he may have fallen and injured his abdomen over the weekend and he may have had blood in his stool. The patient does indicate he fell, but says he has no abdominal pain. He specifically denies having seen blood in his stool. The patient was felt not to be safe to be discharged home as there were concerns for a recurrent CVA, though no new focal deficits were observed in the ED. While in the ED, the patient had a bout of Afib with RVR while standing to urinate which slowed down when the patient sat down. The patient denies dizziness, headache, chest pain, shortness of breath, nausea and states he feels the same way today he did yesterday. Review of Systems All systems reviewed & are unremarkable except as noted in HPI and below PFSH Medical History Atrial fibrillation CVA (cerebral vascular accident) HTN (hypertension) Surgical History complex laceration of left upper extremity (01/19/16) Family History Other Family history unobtainable due to patient's condition Social History Smoking/Tobacco Use Status: Never Smoking risk assessment performed?: Yes Alcohol Intake: former Drug use: Never Details: no alcohol for 30 yrs Do you feel safe at home: Yes Do you feel safe in your relationship?: Yes Meds Allergies and Home Medications Allergies Allergy/AdvReac Type Severity Reaction Status Date / Time Penicillins Allergy Severe per pcp Unverified 01/14/21 14:11 office aspirin AdvReac Intermediate Skin Rash Unverified 01/14/21 14:11 atenolol AdvReac Intermediate fatigue Unverified 01/14/21 14:11 atorvastatin calcium AdvReac Mild itch Unverified 01/14/21 14:11 [From Lipitor] Home Medications Medication Instructions Recorded Confirmed Type clopidogrel [Plavix] 75 mg PO DAILY #30 tab 05/13/17 03/14/21 Rx amlodipine 5 mg PO DAILY 10/17/18 03/14/21 History ibuprofen 600 mg PO TID PRN 10/17/18 03/14/21 History albuterol sulfate [Proventil HFA] 2 puff INHALATION .Q6HRS PRN 01/14/21 03/14/21 History budesonide [Pulmicort] 1 mg BID 01/14/21 03/14/21 History ipratropium-albuterol 3 ml INHALATION Q6H PRN 01/14/21 03/14/21 History rosuvastatin 40 mg PO DAILY #30 tab 01/15/21 03/14/21 Rx Exam Narrative Exam Narrative: General: Pleasant elderly male who looks younger than his stated age, having expressive aphasia which complicates orientation exam. He is cooperative and following commands Neurological: A&O at least 1, likely 2. Expressive aphasia, able to say yes, no. Moving all 4 extremities. CN II-XII intact, 5/5 strength B, sensory intact, plantar response flexion B, DTRs 1+ B. Psychiatric: Difficult to fully evaluate due to expressive aphasia. Cooperative Skin: two small ecchymoses seen on L side of the abdomen (purple), otherwise intact HEENT: Atraumatic, normocephalic, EOMI, MMM, clear oropharynx, no submandibular or cervical lymphadenopathy (that could be palpated via the henson), no goiter or JVD Cardiovascular: irregularly irregular rhythm, no m/r/g Lungs: CTAB Gastrointestinal: soft, nontender, nondistended Genitourinary: deferred Extremities: no edema BLE's, 1+ pedal pulses B, dry skin. Results Imaging Additional studies: CT head w/o contrast: 1. No acute intracranial process. EKG: HR 115, Afib, PVC, no acute ischemia Labs Result diagrams: 03/14/21 11:42 03/14/21 11:42 Labs: Laboratory Results - last 24 hr 03/14/21 03/14/21 03/14/21 11:42 11:42 12:15 WBC 5.48 RBC 5.15 Hgb 14.6 Hct 45.2 MCV 87.8 MCH 28.3 MCHC 32.3 RDW 14.2 H Plt Count 184 MPV 12.1 H Immature Gran % 0.2 Neutrophils % 66.7 Lymphocytes % 20.4 Monocytes % 10.4 Eosinophils % 1.6 Basophils % 0.7 Nucleated RBC % 0 Absolute Neutrophils 3.65 Absolute Lymphocytes 1.12 L Absolute Monocytes 0.57 Absolute Eosinophils 0.09 Absolute Basophils 0.04 Sodium 136 Potassium 3.9 Chloride 99 Carbon Dioxide 29.3 Anion Gap 7.7 BUN 11 Creatinine 1.1 Estimated GFR/1.73 m2 >= 60.00 Glucose 106 Calcium 9.1 Magnesium 2.2 Total Bilirubin 0.8 AST 24 ALT 30 Alkaline Phosphatase 87 Troponin I < 0.05 Total Protein 7.9 Albumin 4.0 Urine Color Urine Clarity Urine pH Ur Specific Blakely Urine Protein Urine Ketones Urine Blood Urine Nitrite Urine Bilirubin Urine Urobilinogen Ur Leukocyte Esterase Urine RBC Urine WBC Ur Epithelial Cells Urine Crystals Urine Bacteria Urine Casts Urine Mucus Ur Culture Indicated? Urine Glucose COVID-19 Source Nasal/Nares SARS-CoV-2 (PCR) Negative 03/14/21 03/14/21 14:00 14:30 WBC RBC Hgb Hct MCV MCH MCHC RDW Plt Count MPV Immature Gran % Neutrophils % Lymphocytes % Monocytes % Eosinophils % Basophils % Nucleated RBC % Absolute Neutrophils Absolute Lymphocytes Absolute Monocytes Absolute Eosinophils Absolute Basophils Sodium Potassium Chloride Carbon Dioxide Anion Gap BUN Creatinine Estimated GFR/1.73 m2 Glucose Calcium Magnesium Total Bilirubin AST ALT Alkaline Phosphatase Troponin I < 0.05 Total Protein Albumin Urine Color Yellow Urine Clarity Clear Urine pH 6.5 Ur Specific Blakely 1.020 Urine Protein 100 H Urine Ketones Trace H Urine Blood Trace-lysed H Urine Nitrite Negative Urine Bilirubin Negative Urine Urobilinogen 0.2 Ur Leukocyte Esterase Negative Urine RBC 0-2 Urine WBC Negative Ur Epithelial Cells Rare Urine Crystals Negative Urine Bacteria Negative Urine Casts 0-2 Coarse Granular Urine Mucus Heavy Ur Culture Indicated? No Urine Glucose Negative COVID-19 Source SARS-CoV-2 (PCR) Last Vital Signs Temp 36.8 C 03/14/21 20:25 Pulse 110 H 03/14/21 20:25 Resp 19 03/14/21 20:25 BP 134/75 03/14/21 20:25 Pulse Ox 97 03/14/21 20:25
[2021-03-14] MEDS: Enoxaparin 40 MG/0.4 ML SYR SC (22:45)
[2021-03-15] VITALS (12 sets, daily range): BP systolic 97–130; BP diastolic 63–88; PULSE 77–121; RESP 2–19; TEMP 36.1–36.8; O2SAT 97–98
[2021-03-15 07:45] LABS: Hemoglobin A1C 5.7 % (<5.7)
[2021-03-15 07:55] LABS: Anion Gap 10.5 mmol/L (3-11); BUN 8 mg/dL (7-18); CO2 26.5 mmol/L (21.0-32.0); CREATININE 0.8 mg/dL (0.70-1.30); Calcium 8.6 mg/dL (8.5-10.1); Calculated LDL 52 mg/dL (<100); Chloride 100 mmol/L (98-107); Cholesterol 100 mg/dL (<200); Glucose 89 mg/dL (74-106); HDL Cholesterol 38 mg/dL (40-60); Potassium 3.4 mmol/L (3.5-5.1); Sodium 137 mmol/L (136-145); TSH (W/Ref FT4) 1.29 uIU/mL (0.36-3.74); Triglyceride 51 mg/dL (<150); Vitamin B12 965 pg/mL (193-986)
--- NOTE | 2021-03-15 08:00 | DI.MRI_ITS ---
Exam(s) MR BRAIN WO EXAM: MR BRAIN WO CLINICAL HISTORY: ?new CVA - altered mental status TECHNIQUE: Multiplanar multisequence MRI of the brain was performed. COMPARISON: MR MR BRAIN WO from 01/15/2021 MR MR BRAIN WO from 01/15/[address] HEAD - STROKE PROTOCOL from 03/14/2021 FINDINGS: CEREBRAL PARENCHYMA: There is no evidence of intracranial hemorrhage, mass effect, or shift of midline structures. There are no extra-axial fluid collections. Ventricular size is unchanged No new significant signal abnormality evident in the cerebellar hemispheres, tariq, midbrain, and thal ami. The previously present acute anterior infarction in the right-side of the tariq no longer exhibi ts restricted diffusion. However, the present study reveals a 8 x 7 millimeter focus of restricted d iffusion in the immediate left periventricular white matter, with corresponding dark signal on the AD C map, consistent with acute ischemic zone. A similar but smaller 5 x 3 millimeter finding is seen i n the immediate right supra ventricular white. These findings were not evident on the prior MRI scan of 01/15/2021. There is superimposed upon abundant bilateral periventricular white matter ischemic chronic changes. PITUITARY GLAND: No mass nor parasellar abnormality. No obvious abnormality in the cavernous sinuses. FLOW VOIDS: The expected flow void are noted. No evidence of obvious aneurysm nor obvious vascular ma lformation. PARANASAL SINUSES: The visualized paranasal sinuses appear unremarkable. No obvious finding ORBITS: No obvious findings. IMPRESSION: Compared to the prior MRI scan of 01/15/2021 there is again noted prominent chronic ischemic white ma tter changes. However, on the present study there are new ischemic foci evident in the left perivent ricular white matter and right supra ventricular white matter, both exhibiting restricted diffusion.. There is no evidence of hemorrhage at these levels. The previously described acute ischemic event in the right anterior tariq seen on the MRI scan of 2020 no longer exhibits restricted diffusion. See separate MRA report,. DATA REPOSITORY:
--- NOTE | 2021-03-15 08:00 | DI.MRI_ITS ---
Exam(s) MR ANGIO BRAIN WO EXAM: MR ANGIO BRAIN WO CLINICAL HISTORY: Acute/recurrent CVAs TECHNIQUE: Noninfused brain MRA performed with [id number] sequence COMPARISON: Prior MRI reviewed as was the MRI of 01/15/2021 FINDINGS: ANTERIOR CIRCULATION: Both internal carotid arteries are patent in the skull base-carotid canals and both are also demonstrated to be patent within the cavernous sinuses.. Supraclinoid aspects are nevarez nt. No aneurysms these vessels at this level. Both middle cerebral arteries are patent. No intralu juma thrombus evident in the MCAs nor aneurysms. Both A1 segments are patent. Both anterior cerebr al arteries are patent. There is no evidence of aneurysm at the level of the anterior communicating artery. POSTERIOR CIRCULATION: The left vertebral artery is dominant although both vertebral arteries contribute to the formation of the basilar artery at the skull base. Basilar artery ascends with normal luminal diameter. Distall y basilar artery gives off patent bilateral superior cerebellar arteries and above this level termina janet as posterior cerebral arteries. 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 Similar finding not seen in the right posterior cerebral artery There are posterior communicating arteries on both sides of the [id number]. There is no eviden ce of aneurysm of the tip of the basilar artery VENOUS: There is no evidence of obvious venous sinus thrombosis. IMPRESSION: 1. Patent intracranial internal carotid arteries. Patent middle cerebral arteries. Patent anterior cerebral arteries. 2. 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 3. No aneurysms evident. 4. No significant venous sinus thrombosis evident. See separate brain MRI report dictated today. This reveals a new bilateral significant findings in t he periventricular white matter consistent with acute bilateral ischemic events, possibly embolic. DATA REPOSITORY:
[2021-03-15] MEDS: Clopidogrel 75 MG TAB PO (08:22)
[2021-03-15] MEDS: Rosuvastatin 10 MG TAB 40 MG PO (08:22)
--- NOTE | 2021-03-15 08:46 | STREC_ITS ---
Date of service: 03/15/21 Time of Service: 08:47 Speech Therapy Recommendations Report ST Recommendations: IMPLEMENTATION ADVISOR Communication / Non-Treatment Note Consult received, chart reviewed. Called M/S in AM, spoke with RN re: patient's current communication abilities and any concerns re: swallowing function. RN reports patient is able to respond appropriately when provided Y/N questions and able to gesture with head nod consistently; some concerns with thin liquids this AM, provided pills in oatmeal without any issues/overt s.s aspiration. Recommendations: - Utilize Y/N questions, options of 2 whenever possible, allow time for response as needed to enhance communicative participation - Encourage small sips with thin liquids; continue to monitor for overt s.s aspiration until IMPLEMENTATION ADVISOR evaluation Plan: IMPLEMENTATION ADVISOR to assess patient in afternoon on this date to provide further recommendations. May trial low tech AAC as appropriate. Shannan Song MA CCC-IMPLEMENTATION ADVISOR Speech-Language Pathologist [place]#[phone] Coding
[2021-03-15] MEDS: Lachydrin 12% LOTION 225 GM BTL TP ×2 (09:01→20:41)
--- NOTE | 2021-03-15 09:15 | IN_ITS ---
Date of service: 03/15/21 Time of Service: 09:15 PT Notes Visit Reasons: EXPRESSIVE APHASIA, ALTERED MENTAL STATUS Physical Therapy Inpatient Initial Evaluation Date: 03/15/2021 Referring Doctor: Tsering Ching MD PT Orders: PT CONSULT: Limited ability Precautions: Fall. Standard. Activity as tolerated. Right hemineglect. Expressive aphasia. Patient Profile/Admitting Diagnosis: Jaziel is an 80-year-old male with medical history significant for pontine CVA with expressive aphasia who presented to the ED on 03/15/2020 with altered mental status. Patient is diagnosed with altered mental status with suspected TIA versus CVA, expressive aphasia, ambulatory dysfunction, blood in stool. PMHX: Medical History Atrial fibrillation CVA (cerebral vascular accident) HTN (hypertension) Surgical History complex laceration of left upper extremity (01/19/16) Social History/Home Situation: Per chart review, lives with her 2 sons. Unable to fully extract home situation due to expressive aphasia. Said yes to using front wheel walker at home. Equipment Owned/DME: FWW, SPC Subjective: Had difficulty responding to questions due to expressive aphasia. Did agree to PT consult. Shook head when asked about headache, chest pain, and dizziness. Objective: General Observation: Telemetry monitoring in place. IV access in the right brachium. [id number]. Mental Status: Alert and oriented as to person, place, time, and purpose. Able to pay attention, focus, and respond appropriately. Unable to respond verbally due to expressive aphasia. Able to answer yes/no questions. Able to follow instructions. Pain: No nonverbal expressions of pain, no grimacing nor UE withrawal during mobility assessment Vital Signs: After ambulation activity blood pressure of 113/79 mmHg, SaO2 95% on room air, and IA 76 bpm. ROM: Right Upper Extremity: Shoulder Flexion allows only about 90 degrees actively. Shoulder abduction only about 90 degrees actively. Elbow flexion WFL. Wrist flexion WFL. Functional opening and closing of hand WFL but with decreased speed compared to the left side. Left Upper Extremity: Shoulder Flexion allows only about 90 degrees actively. Shoulder abduction only about 90 degrees actively. Elbow flexion WFL. Wrist flexion WFL. Functional opening and closing of hand WFL. Right Lower Extremity: Hip flexion WFL. Hip abduction WFL. Knee flexion WFL. Ankle dorsiflexion WFL. Ankle plantarflexion WFL. Left Lower Extremity: Hip flexion WFL. Hip abduction WFL. Knee flexion WFL. Ankle dorsiflexion WFL. Ankle plantarflexion WFL. Strength: Right Upper Extremity: Shoulder flexors 3-/5. Shoulder abductors 3-/5. Elbow flexors 4/5. Elbow extensors 4/5. Supervisor [employer] strong. Left Upper Extremity: Shoulder flexors 3-/5. Shoulder abductors 3-/5. Elbow flexors 4/5. Elbow extensors 4/5. Supervisor [employer] strong. Right Lower Extremity: Hip flexors 4/5. Hip abductors 4/5. Knee flexors 5/5. Knee extensors 4/5. Ankle dorsiflexors 5/5. Ankle plantarflexors 5/5. Left Lower Extremity: Hip flexors 5/5. Hip abductors 5/5. Knee flexors 5/5. Knee extensors 5/5. Ankle dorsiflexors 5/5. Ankle plantarflexors 5/5. Bed Mobility/Transfers: Supine to sit with minimal assist Sit to stand from edge of bed with minimal assist. From bedside recliner contact-guard assist. Contact-guard assist Stand to sit with contact-guard assist Bed to reclining chair contact-guard assist Gait: Instructed patient with level surface ambulation of 100 feet plus 100 feet requiring contact-guard assist. Remedios decreased. Step height right decreased. Step length right decreased. Decreased stance time on right. No LOB. Mild SOB. Balance: Static Sitting: Normal Dynamic Sitting: Fair Static Standing: Fair Dynamic Standing: Fair Special Tests: Mobility Limitations Standardized Measure [facility] AM-PAC 6 clicks Basic Mobility Inpatient Short Form: Raw Score: 18 CMS Score: 47% deficit NEUROLOGIC TESTING: Rapid alternating movement: Impaired Coordination: R heel to reeder test impaired Awareness of R side: limited 4-stage Balance test: Unable to perform at this time Informed Consent/Education: Patient was instructed in purpose of PT consult and plan of care. Agreeable to proceed with established PT POC to achieve personal goals. Assessment: Expressive aphasia limiting patient responses. Comprehension intact. Disparity in strength with the right UE/LE paretic. Motor planning and coordination in right UE and LE impaired. R hemineglect increases risk for falls at this time. Tends to lean to R and fatigue while seated on the chair. Patient presents with clinical signs and symptoms consistent with current/admitting diagnoses that have resulted to mobility limitations, gait instability, generalized weakness, and overall ADL decline as demonstrated by the following impairment level findings: 1. Decreased strength to B UE/LE major muscle groups 2. Impaired sitting/standing balance 3. Impaired activity tolerance 4. Dysdiadochokinesia 5. Impaired gait pattern 6. Right sina-neglect Impairments are contributing to the following functional limitations: 1. Decline in bed mobility skills 2. Decline in transfer skills 3. Difficulty with ambulation without assistive device and physical assistance 4. Increased completion time for mobility ADL performance 5. Increased risk for falls 6. Difficulty with managing steps alone safely 7. Inability to safely thrive at home at this time Patient is assessed as a 36859 moderate complexity based on the following: History: 80 [id number] with past medical history as indicated above Examination: Demonstrable impairment in strength, balance, and mobility level with underlying impairments and functional limitations as exhibited above as well as deficit score of 47% utilizing the [facility] Mobility Inpatient Short Form Presentation: Evolving Decision Makin moderate complexity Goals: Goals X1 week 1. Supine-Sit independent 2. Sit-Supine independent 3. Sit-Stand independent 4. Stand-Sit independent with FWW 5. Bed-Chair independent with FWW 6. Chair-Bed independent with FWW 7. Supervision gait on level surface with use of FWW for at least 300 feet without report of pain nor dyspnea Plan of Care/Treatment Plan: 1-2x/day, 7 days/week x 1 week. Plan of care has been reviewed with the GALLERY OR MUSEUM ATTENDANT providing the service under Physical Therapy direction. Initiate Physical Therapy intervention for pain management as needed, strengthening, bed mobility, transfers, gait, stairs, balance training, and use of assistive device. DISCHARGE RECOMMENDATIONS: Depending on availability of and ability to provide assistance of 2 sons, may go home with PT. Otherwise strongly recommending ort-term rehab pror to return home. TREATMENT CODE/TIME: 79338 x 20 minutes, 04565 x 10 minutes getting 9:15 AM. Thank you for the opportunity to participate in the care of this patient. Amada Patterson PT, DPT, CLT [facility], [place]
--- NOTE | 2021-03-15 09:53 | OTIE_ITS ---
Occupational Therapy Notes Inpatient Occupational Therapy Evaluation Date: 03/16/21 Referring Doctor:Korin Traylor NP OT Orders: Non-Urgent Precautions: Fall, standard, DNR PATIENT PROFILE/ADMITTING DIAGNOSIS: Pt is a 80 year old male who presented to the ED and was admitted to Med Surg with the following dx of CVA, rapid A-fib, blood in stool, ambulatory dysfunction, altered mental status, HTN, expressive aphasia, complex laceration, concussion. Past Medical History: Medical History Atrial fibrillation CVA (cerebral vascular accident) HTN (hypertension) Surgical History complex laceration of left upper extremity (01/19/16) Social History/Home Situation: Unable to assess due to limited verbal communication. Per CM note, pt is (I) at his baseline level of function. He is not (I) at this time. Equipment owned/DME: Unable to assess SUBJECTIVE: Pt was sitting in bed when OT arrived, he was eating his breakfast and was able to make good eye contact. OBJECTIVE: General Observation: Pleasant, limited verbal communication and responds best to yes/no questions, pt has IV in (L) UE, alert to name, unable to express self and is emotional when asked about his children. Mental Status: Alert to name Pain: unable to assess due to lack of verbal communication. ROM: RUE AROM WFL L UE AROM WFL STRENGTH: RUE 4-/5 throughout LUE 5/5 throughout *Pt is (R) hand dominant. FUNCTIONAL MOBILITY/ADLS: Transfers with FWW Supine-sit Min (A) Sit-Stand CGA BATHING sitting on side of his bed Bathing UE (I) face DRESSING sitting on side of the bed with mod vc throughout Dressing UE Min (A) [facility] gown Dressing LE (I) (L) sock and max (A) (R) at this time. GROOMING (I) with (L) hand to brush hair, tactile cues for (R) TOILETING NT EATING Sitting in bed, (I) with food to mouth but limited in drinking thin liquids. OT did discuss this with SITE IDENTIFICATION SPECIALIST and will continue to work with pt to increase his (I) at this time. He was able to open some packaging with decreased fine motor control. BALANCE: Static sitting Good Dynamic Sitting Good Static Standing Good Dynamic Standing Good SPECIAL TESTS: Daily Activity Limitations Standardized Measure [facility] AM -PAC ?6 clicks? Daily Activity Inpatient Short Form: Raw score: 15 Standardized score: 35.96 CMS score: 53.32% INFORMED CONSENT/EDUCATION: Pt instructed in purpose of OT Consult and plan of care. ASSESSMENT: Patient is a 80-year-old male referred to occupational therapy services with diagnosis of CVA. Patient presents with clinical signs and symptoms consistent with dx, as demonstrated by the following impairment level findings/functional limitations: Decreased (R) side strength, decreased functional activity tolerance, impairment in speech and verbal communication, decreased (I) in drinking, decreased (R) LE dressing including socks and pants, CGA in standing activity, decreased (R) UE ROM and coordination, verbal cues required for safety at times. AMPAC score 15 Patient is assessed as a Moderate 19717 complexity based on the following: History: see above Examination: see functional limitations as noted above Presentation: evolving Decision Making: AMPAC score 15 GOALS Goals x1 week 1. Transfers (I) 2. Dressing (I) in seated position 3. Bathing (I) in seated position 4. Toileting min (A) on toilet 5. Eating (I) in chair PLAN OF CARE/TREATMENT PLAN: 1x/day, 5 days/ week x 1week Initiate Occupational Therapy Services for bathing, dressing, grooming, toileting, eating, transfer training. DISCHARGE RECOMMENDATIONS Based on pts current level of function and impairment/ deficits that he is having at this time, OT recommends that pt go to SNF when medically cleared per MD for continued rehabilitation and progression of his ADLs in a safe manner at this time. TREATMENT TIME/MINUTES/CODES 06075, 77640, 30 minutes (08:45) NATIVIDAD [facility]
--- NOTE | 2021-03-15 11:01 | PGE_ITS ---
Date of Service Date of service: 03/15/21 Time of Service: 11:01 Assessment and Plan Assessment and plan (1) CVA (cerebral vascular accident): Status: Acute Assessment and plan: already on plavix, allergic to asa. discussed anticoagulation with patient and risks of bleeding. 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 His echo last admission December 2020 showed EF of 55%. No thrombus noted. repeat in am patient wishes to start anticoagulation MRI shows: IMPRESSION: Compared to the prior MRI scan of 01/15/2021 there is again noted prominent chronic ischemic white matter changes. However, on the present study there are new ischemic foci evident in the left periventricular white matter and right supra ventricular white matter, both exhibiting restricted diffusion.. There is no evidence of hemorrhage at these levels. The previously described acute ischemic event in the right anterior tariq seen on the MRI scan of December 2020 no longer exhibits restricted diffusion. MRA: IMPRESSION: 1. Patent intracranial internal carotid arteries. Patent middle cerebral arteries. Patent anterior cerebral arteries. 2. 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 3. No aneurysms evident. 4. No significant venous sinus thrombosis evident. See separate brain MRI report dictated today. This reveals a new bilateral significant findings in the periventricular white matter consistent with acute bilateral ischemic events, possibly embolic. (2) Altered mental status: Status: Resolved Assessment and plan: at baseline (3) Rapid atrial fibrillation: Status: Resolved Assessment and plan: increase lopressor (4) HTN (hypertension): Status: Chronic Assessment and plan: hold any home antihypertensives (5) DVT prophylaxis: Status: Acute Assessment and plan: will be fully anticoagulated on eliquis (6) Discharge planning issues: Status: Acute Assessment and plan: home with home health vs skilled rehab prior to returning home discharge discussed with DR Duncan. Subjective Subjective Patient reports: tolerating liquids well and afebrile; denies shortness of breath Interval history since last seen: remains aphasic, right sided ataxia upper ext. Exam Const General: cooperative, comfortable, no acute distress and frail appearing Nutritional Appearance: average body habitus Orientation: alert, awake and other HENMT Head: normal to inspection, normocephalic and atraumatic Mouth: oral mucosae normal Resp Effort & Inspection: normal respiratory effort Auscultation: clear to auscultation bilaterally Cardio Rate: tachycardic Rhythm: abnormal rhythm (controlled to uncontrolled afib) irregularly irregular GI Inspection: normal to inspection Palpation: soft Auscultation: normal bowel sounds Skin General skin exam: no rashes or lesions noted Neuro General: patient alert, patient awake and moves all extremities Speech: expressive aphasia Motor: muscle tone normal throughout and strength abnormal (right ataxia) Extrem General: normal to inspection, full ROM and no pedal edema Objective Last Vital Signs Temp 36.4 C L 03/15/21 03:15 Pulse 91 H 03/15/21 03:15 Resp 18 03/15/21 03:15 BP 97/63 L 03/15/21 10:23 Pulse Ox 98 03/15/21 03:15 Laboratory Results - last 24 hr 03/14/21 03/14/21 03/14/21 11:42 11:42 12:15 WBC 5.48 RBC 5.15 Hgb 14.6 Hct 45.2 MCV 87.8 MCH 28.3 MCHC 32.3 RDW 14.2 H Plt Count 184 MPV 12.1 H Immature Gran % 0.2 Neutrophils % 66.7 Lymphocytes % 20.4 Monocytes % 10.4 Eosinophils % 1.6 Basophils % 0.7 Nucleated RBC % 0 Absolute Neutrophils 3.65 Absolute Lymphocytes 1.12 L Absolute Monocytes 0.57 Absolute Eosinophils 0.09 Absolute Basophils 0.04 Sodium 136 Potassium 3.9 Chloride 99 Carbon Dioxide 29.3 Anion Gap 7.7 BUN 11 Creatinine 1.1 Estimated GFR/1.73 m2 >= 60.00 Glucose 106 Hemoglobin A1c Calcium 9.1 Magnesium 2.2 Total Bilirubin 0.8 AST 24 ALT 30 Alkaline Phosphatase 87 Troponin I < 0.05 Total Protein 7.9 Albumin 4.0 Triglycerides Total Cholesterol LDL Cholesterol, Calc HDL Cholesterol Vitamin B12 TSH Urine Color Urine Clarity Urine pH Ur Specific [place] Urine Protein Urine Ketones Urine Blood Urine Nitrite Urine Bilirubin Urine Urobilinogen Ur Leukocyte Esterase Urine RBC Urine WBC Ur Epithelial Cells Urine Crystals Urine Bacteria Urine Casts Urine Mucus Ur Culture Indicated? Urine Glucose COVID-19 Source Nasal/Nares SARS-CoV-2 (PCR) Negative 03/14/21 03/14/21 03/15/21 14:00 14:30 06:40 WBC RBC Hgb Hct MCV MCH MCHC RDW Plt Count MPV Immature Gran % Neutrophils % Lymphocytes % Monocytes % Eosinophils % Basophils % Nucleated RBC % Absolute Neutrophils Absolute Lymphocytes Absolute Monocytes Absolute Eosinophils Absolute Basophils Sodium 137 Potassium 3.4 L Chloride 100 Carbon Dioxide 26.5 Anion Gap 10.5 BUN 8 Creatinine 0.8 Estimated GFR/1.73 m2 >= 60.00 Glucose 89 Hemoglobin A1c Calcium 8.6 Magnesium 2.0 Total Bilirubin AST ALT Alkaline Phosphatase Troponin I < 0.05 Total Protein Albumin Triglycerides 51 Total Cholesterol 100 LDL Cholesterol, Calc 52 HDL Cholesterol 38 L Vitamin B12 965 TSH 1.29 Urine Color Yellow Urine Clarity Clear Urine pH 6.5 Ur Specific [place] 1.020 Urine Protein 100 H Urine Ketones Trace H Urine Blood Trace-lysed H Urine Nitrite Negative Urine Bilirubin Negative Urine Urobilinogen 0.2 Ur Leukocyte Esterase Negative Urine RBC 0-2 Urine WBC Negative Ur Epithelial Cells Rare Urine Crystals Negative Urine Bacteria Negative Urine Casts 0-2 Coarse Granular Urine Mucus Heavy Ur Culture Indicated? No Urine Glucose Negative COVID-19 Source SARS-CoV-2 (PCR) 03/15/21 06:40 WBC RBC Hgb Hct MCV MCH MCHC RDW Plt Count MPV Immature Gran % Neutrophils % Lymphocytes % Monocytes % Eosinophils % Basophils % Nucleated RBC % Absolute Neutrophils Absolute Lymphocytes Absolute Monocytes Absolute Eosinophils Absolute Basophils Sodium Potassium Chloride Carbon Dioxide Anion Gap BUN Creatinine Estimated GFR/1.73 m2 Glucose Hemoglobin A1c 5.7 Calcium Magnesium Total Bilirubin AST ALT Alkaline Phosphatase Troponin I Total Protein Albumin Triglycerides Total Cholesterol LDL Cholesterol, Calc HDL Cholesterol Vitamin B12 TSH Urine Color Urine Clarity Urine pH Ur Specific [place] Urine Protein Urine Ketones Urine Blood Urine Nitrite Urine Bilirubin Urine Urobilinogen Ur Leukocyte Esterase Urine RBC Urine WBC Ur Epithelial Cells Urine Crystals Urine Bacteria Urine Casts Urine Mucus Ur Culture Indicated? Urine Glucose COVID-19 Source SARS-CoV-2 (PCR)
[2021-03-15] MEDS: Albuterol/Ipratropium 3 ML UPD VIAL IH ×2 (11:21→15:26)
[2021-03-15] MEDS: Normal Saline Flush 10 ML SYR IVP ×2 (12:44→20:41)
[2021-03-15] MEDS: Normal Saline 250 ML 500 ML IV (12:44)
[2021-03-15] MEDS: Metoprolol 12.5 MG TAB PO ×2 (13:23→20:42)
[2021-03-15] MEDS: Metoprolol 5 MG/5 ML VIAL 2.5 MG IVP (13:53)
--- NOTE | 2021-03-15 14:30 | PT.INTREAT ---
Date of service: 03/15/21 Time of Service: 14:03 PT Notes Visit Reasons: EXPRESSIVE APHASIA, ALTERED MENTAL STATUS Inpatient Physical Therapy Treatment Note [facility] Date: 03/15/2021 PRECAUTIONS: Fall, Broca's Aphasia, R hemineglect SUBJECTIVE: Jaziel is pleasant and agreeable to participating in PT. He communicates that he is tired and would like to get into bed at the end of the session. OBJECTIVE: PAIN: No c/o pain BED MOBILITY/TRANSFERS Sit-supine: S with HOB flat Sit-stand: Min A Stand-sit: CGA GAIT Assistive Device: FWW Weight bearing: Full Assist: CGA Distance: 200' Deviation: Wheelchair follow, decreased step height/length on R, cues to look to R, path deviation to R, occasional LOB requiring Min A THEREX: Patient was instructed in a supine LE strengthening program, as per flow sheet. ASSESSMENT: Patient continues to demonstrate right-sided hemineglect, requiring cueing to look to right and utilize right hand. He had several instances of LOB with gait training, requiring Min A for recovery. PLAN: Continue with gait and transfer training for improved mobility. TREATMENT CODE/TIME: 23 minutes; 79611, 61842 (14:03)
[2021-03-15] MEDS: Potassium Chloride 10 MEQ CAPCR 20 MEQ PO ×2 (17:34→21:59)
--- NOTE | 2021-03-15 18:05 | W.SPSTE ---
Date of service: 03/15/21 Time of Service: 18:05 Subjective Sg assessed in evening during dinner meal with both sons also present during visiting hours. Patient nods head yes when asked if he has been having a difficult time with getting his swallowing started for liquids since this admission. WHEEL ALIGNER reports patient did respond well to larger AAC board earlier in evening (before receiving meal), less interested in engaging with provided AAC options during meal this evening, appeared frustrated, fatigued; able to respond with head nod when asked if he needed to use bathroom, WHEEL ALIGNER present for assistance. Wilfrido Alejo reports patient's difficulties with expressive aphasia are relatively new onset, although unclear of exact timeline; current presentation appears to be significantly worse from initial onset per documentation review (appears WAREHOUSE AND RECEIVING SUPERVISOR not consulted at that time), as son reports speaking to Sg on the phone as early as this past Friday; although intelligibility has been reduced for years, patient was able to communicate wants/needs at that time and communicate verbally, which he has significant difficulties with currently. Objective Objective Speech Language Pathology Evaluation Patient referred from Dr Ching for WAREHOUSE AND RECEIVING SUPERVISOR evaluation given difficulties with communication / hx expressive aphasia; concerns with swallowing per nursing staff also verbalized in AM. Precautions: Fall. Standard. Activity as tolerated. Right hemineglect. Expressive aphasia. Patient Profile/Admitting Diagnosis: Sg is an 80-year-old male with medical history significant for pontine CVA with expressive aphasia who presented to the ED on 03/15/2020 with altered mental status. Patient is diagnosed with altered mental status with suspected TIA versus CVA, expressive aphasia, ambulatory dysfunction, blood in stool. Expressive aphasia documented as of 12/2020, no WAREHOUSE AND RECEIVING SUPERVISOR intervention noted at that time. Last documented WAREHOUSE AND RECEIVING SUPERVISOR treatment noted to be in 04/2017 to address dysarthria s/p CVA. PMHX: Medical History Atrial fibrillation CVA (cerebral vascular accident) HTN (hypertension) Surgical History complex laceration of left upper extremity (01/19/16) Social History/Home Situation: Lives with 2 sons. Equipment Owned/DME: FWW, SPC OBJECTIVE: Predisposing dysphagia risk factors: Concussion, AMS, CVA/TIA Clinical signs of possible chronic dysphagia: R sided anterior spillage reported in AM per OT, difficulties with thin liquids per nursing report (changed medication administration to providing pills with puree) Precipitating dysphagia risk factors / triggering event: AMS, R sided weakness + R neglect Temp: 98.2 F Sp02: 98% RR: 16 / room air Cranial nerve exam / Oral Motor: *truncated secondary to reduced patient participation + communication deficits CN V: facial sensation intact to light touch labial protrusion symmetrical labial coordination/ROM - WFL mastication - appears intact clinically lingual/labial sensation - intact CN VII: lateral sulcus residue - absent anterior spillage - R sided anterior spillage reported by OT earlier in morning, not observed during assessment in evening today with straw or cup sip salivation - intact CN IX/X: Vocal Quality - WFL taste - WFL onset of swallow - suspect possible delay pharyngeal residue - possible impairment nasopharyngeal regurgitation - denied by patient CN XII: bolus preparation/manipulation/control - WFL; patient nods head when asked if he is able to chew with current dentition and gums; nods head when asked if this is his 'normal' re: dentition at home AP transit - possible impairment lingual protrusion intact lingual coordination/ROM WFL lingual residue absent Dentition/Oral Structures/Hygiene: 4 anterior mandibular incisors present, missing dentition otherwise oral hygiene appears adequate upon assessment however is likely to require assist for thorough oral care regimen to reduce bacterial load Language: verbal expression/fluency significantly impaired, naming significantly impaired, repetition significantly impaired, and auditory comprehension mildly impaired Standardized Measures: WAB-R Bedside Subtests: Spontaneous Speech: Fluency - 0 No words or short, meaningless utterances Auditory Verbal Comprehnsion: Yes/No Questions - 8/10 accuracy Repetition - 10 (able to produce /buh/ initially for bed, /winnuh/ for window after 3x attempts at repetition - unclear if apraxic errors as initial utterances were unintelligible, otherwise unable to produce intelligible responses despite repetition) Classification: Broca's Aphasia Informal Assessment(s) Sequential Commands - 2/3 accuracy (error noted: points to napkin when asked to point to spoon) Hearing: DNT; appears WFL Mental Status: limited assessment secondary to aphasia, recall of current events appears mostly intact, to be further assessed Speech: 90-100% unintelligible, dysarthric with possible apraxic errors (?) Laryngeal function exam: Secretions: WFL Vocal quality: WFL MPT: DNT S/Z ratio: DNT Pitch range: DNT Cough: DNT PO intake IDDSI 0: thin liquid 3/3 via straw w negative (-) overt s.sx aspiration 2/5 cup sips w positive (+) overt s.sx aspiration, delayed congested-sounding vocal quality (unclear if this is patient's baseline VQ, son reports this is exactly how he has sounded for years) IDDSI 4: pudding x8, mashed potatoes x1 negative (-) overt s.sx aspiration IDDSI 7: chicken x1, soft green beans x2 negative (-) overt s.sx aspiration Pill/tablet: DNT; RN previously provided pills in puree as of this AM, reported negative (-) overt s.sx aspiration Parachute Swallow Protocol: DNT; Patient refuses Assessment IMPRESSIONS: Patient demonstrates primarily pharyngeal dysphagia as characterized by report of delayed swallow onset with notable oral holding (pt appears self aware of delay in swallow initiation per interview) and question of overt s/sx aspiration with thin liquids, unclear if congested VQ is baseline (?) (presence of aspiration unknown without objective imaging at this time); patient also demonstrates Broca's aphasia as characterized by severe difficulties with spontaneous speech/fluency, repetition, and mild deficits in auditory verbal comprehension. Low tech AAC options (board and booklet) provided to patient/staff/family during assessment today, with very limited patient engagement during assessment, low affect. Patient is at moderate risk for aspiration-related pulmonary complication, given adequate oral hygiene, complicated by need for assist, & presumed reduced immunocompetence; improvements in physical mobility and overall pulmonary function likely to further reduce this risk. Patient and family members also deny hx of prior PNA. Further WAREHOUSE AND RECEIVING SUPERVISOR services warranted at this time. Provided education to patient/family/staff re: anatomy/physiology of swallowing mechanism, overt s/sx to monitor for re: potential aspiration of food and/or liquids, recommendations for assist with oral care and p.o. intake recommendations/strategies (ie small sips, clear throat+re-swallow); use of low tech AAC board(s) and recommendations for communication enhancement to reduce frustration / encourage patient independence Recommendations: Communication: - Utilize Y/N questions, options of 2 whenever possible, allow time for response as needed to enhance communicative participation - AAC board and/or booklet for expressive communication; may also utilize AAC board/booklet to enhance verbal understanding given lack of visual cues with masks Instrumentation: N/A at this time Diet Texture Modification(s): IDDSI Level(s) 7-Regular Solids, 0-Thin Liquids Medication Intake: Whole with 4-pureed or as tolerated Alter medications only as advised by MD or Pharmacist RISK MANAGEMENT: - Assist for thorough oral care Oral hygiene BID/2x per day and before/after PO intake using friction with toothbrush on all oral structures as tolerated HOB upright as tolerated; upright for all PO intake. Encourage physical mobility as tolerated. Level of Assistance/Supervision: Distant supervision for all PO intake, may require assist for feeding PO intake only when awake/alert Strategies/Adaptations/Assistive Equipment: Provide verbal and/or visual cues to use recommended strategies - Encourage small sips with thin liquids, clear throat+re-swallow (continue to monitor for overt s.s aspiration, trial adaptations as needed) - Small sips and bites when eating - Slow rate of intake - Alternate intake of liquids and solids Posture/Positioning Needs: Maintain upright position at least 30 minutes after meals, Avoid meals/snacks 2-3 hours prior to reclining/sleeping, Sleep with head of bed elevated to reduce likelihood of nocturnal reflux *Patient is recommended for continued WAREHOUSE AND RECEIVING SUPERVISOR treatment upon d/c at this time, whether setting is determined as or SNF. Plan WAREHOUSE AND RECEIVING SUPERVISOR to follow while on unit. Shannan Song MA [facility]WAREHOUSE AND RECEIVING SUPERVISOR [phone] WAREHOUSE AND RECEIVING SUPERVISOR CPT Codes: 87944 - Clinical Swallowing Evaluation [id number] ? Evaluation of speech sound production with evaluation of language comprehension and expression Mess Cook Goals: 1. Patient will improve communication ability to moderate-severe deficit with provided supports/cueing in context of expressive aphasia in order to enhance patient decision making and reduce overall patient frustration/caregiver burden upon discharge. 2. Patient will demonstrate tolerance of least restrictive diet while on unit in order to maintain quality of life. Short Term Goals: 1.1 The patient will repeat functional C-V and C-V-C combinations at 60% accuracy given maximum verbal/visual cues. 1.2 The patient will initiate use of visual AAC support in 60% of opportunities given maximum visual/verbal cues from clinician/caregiver(s). 1.3 Staff/caregiver(s) will demonstrate comprehension and appropriate application of both swallowing and communication supports/strategies to promote overall patient wellbeing and participation in decision-making upon discharge. 2.1 Patient will demonstrate tolerance of Level 0 - thin liquids w negative overt s/sx of aspiration in 90% of opportunities given minimal verbal cues for use of safe swallowing strategies as appropriate in order to increase ability to consume least restrictive diet while on unit. Coding
--- NOTE | 2021-03-15 18:48 | INITIAL_ITS ---
- If Service Date Differs Date of service: 03/15/21 Time of Service: 18:48 Care Management Initial Assess REASON FOR HOSPITALIZATION:: Expressive aphasia, AMS PAST MEDICAL HISTORY/PAST SURGICAL HISTORY:: Medical History. Atrial fibrillation. CVA (cerebral vascular accident). HTN (hypertension). Surgical History. complex laceration of left upper extremity (01/19/16) PREVIOUS FUNCTIONAL STATUS/SOCIAL/FAMILY SUPPORTS:: Sg lives alone in [place]. He has two sons, Alvarez and Yoselyn, who both live locally. Sg identified Alvarez as his person that CM should coordinate with regarding discharge plans. Per report, he has two grandsons that are staying with him currently. Evaluations pending to determine ability to complete ADL's (PT/OT). CURRENT FUNCTIONAL STATUS:: Sg was sitting up in his chair when CM met with him. He has difficulty talking, but can answer yes/no questions. He identified Alvarez, his son, as a person to contact to assist with discharge planning. CM was unable to reach Alvarez today. Per PT/OT, short term rehab is recommended, unless his family can support him at home with new services. CM will continue to follow. ADVANCE DIRECTIVES:: On file, Alvarez listed as agent. Yoselyn listed as alternate agent. Has patient been provided with info about the portal/API?: Yes Did the patient sign up for the portal?: No CODE STATUS:: DNR INSURANCE COVERAGE / FINANCIAL ISSUES:: [facility]/ [place] CURRENT HOME/COMMUNITY SERVICES/EQUIPMENT:: No current services. Has a FWW. PRIMARY CARE PHYSICIAN:: Kathy Cardoza POTENTIAL DISCHARGE NEEDS:: Evaluations for further needs, possible SNF placement, follow up appointments. PATIENT/FAMILY EDUCATION NEEDS:: Review discharge instructions regarding activity levels and medications, discussion of self care needs including ask me three. ANTICIPATED BARRIERS TO DISCHARGE:: None identified at this time. TRANSPORTATION:: Dependent on disposition. PLAN:: Sg will return home with new HH services vs SNF for short term rehab. CM will communicate with Alvarez, his son, to determine discharge plan. His transportation will depend on his disposition. He will follow up with his PCP and discharge plan of care. CM will continue to follow.
[2021-03-15] MEDS: Albuterol HFA 8 GM 60 PUFF INH IH (20:41)
[2021-03-15] MEDS: Apixaban 5 MG TAB PO (20:42)
[2021-03-15] MEDS: Budesonide 0.5 MG/2 ML UPD VIAL 1 MG IH (20:42)
[2021-03-16] VITALS (7 sets, daily range): BP systolic 96–135; BP diastolic 67–87; PULSE 73–117; RESP 17–28; TEMP 36.3–36.6; O2SAT 95–97
[2021-03-16 07:27] LABS: HGB 14.2 g/dL (13.5-17.5); MCH 28.1 pg (27.0-33.0); Platelet Count 183 10^3/uL (130-400); RBC 5.06 10^6/uL (4.36-5.78); RDW 14.1 % (11.8-14.1); RDW-SD 43.8 fL; WBC 6.97 10^3/uL (4.4-10.8)
[2021-03-16] MEDS: Lachydrin 12% LOTION 225 GM BTL TP ×2 (07:35→20:33)
[2021-03-16] MEDS: Metoprolol 12.5 MG TAB PO ×2 (07:35→20:33)
[2021-03-16] MEDS: Apixaban 5 MG TAB PO ×2 (07:35→20:33)
[2021-03-16] MEDS: Rosuvastatin 10 MG TAB 40 MG PO (07:35)
[2021-03-16] MEDS: Potassium Chloride 10 MEQ CAPCR 20 MEQ PO ×2 (07:35→20:32)
[2021-03-16] MEDS: Clopidogrel 75 MG TAB PO (07:35)
[2021-03-16 07:40] LABS: Anion Gap 9.1 mmol/L (3-11); BUN 11 mg/dL (7-18); CO2 26.9 mmol/L (21.0-32.0); Calcium 8.6 mg/dL (8.5-10.1); Chloride 101 mmol/L (98-107); Glucose 91 mg/dL (74-106); Potassium 4.3 mmol/L (3.5-5.1); Sodium 137 mmol/L (136-145)
--- NOTE | 2021-03-16 08:00 | DI.RAD_ITS ---
Exam(s) XR CHEST 2V PA LATERAL EXAM: XR CHEST 2V PA LATERAL CLINICAL HISTORY: cough TECHNIQUE: 2D digital imaging was performed of the chest. Two images were obtained. PA and lateral views were obtained. COMPARISON: CR,XR XR CHEST 2V PA LATERAL from 01/14/2021 FINDINGS: MEDIASTINUM: Normal. HEART: Normal. PULMONARY VASCULATURE: Normal. Atherosclerosis of the thoracic aorta. LUNGS: Clear. PLEURAL SPACE: No pleural effusion or pneumothorax. BONE:Within normal limits for the patient's age. OTHER FINDINGS:Normal. IMPRESSION: No acute pulmonary findings. DATA REPOSITORY: RADIATION DOSE DELIVERED:
[2021-03-16] MEDS: Albuterol HFA 8 GM 60 PUFF INH IH ×2 (09:45→20:29)
--- NOTE | 2021-03-16 11:08 | OT.INTREAT ---
Date of service: 03/16/21 Time of Service: 09:05 Occupational Therapy Notes Occupational Therapy Inpatient Treatment Note Date: 03/16/21 PRECAUTIONS: Fall, standard, DNR SUBJECTIVE: Pt was sitting in chair when OT arrived. He was starting his eating routine and was agreeable to OT (A). OBJECTIVE: PAIN:0/10 per pt report EATING: Pt was sitting in chair with tray in front of him. OT provided pt with back support with pillow as he was leaning back while eating. He has some slight coordination deficit at this time. He is using his (R) hand which is good. However when he brings his food to mouth he brings it to his nose first and then self corrects to his mouth. He has appropriate grasp on the silverware. He is having difficulty grasping his sup with his (R) hand and increasing his risk of spilling his liquids on the front of him. OT recommends handled cups which PUBLIC HEALTH ADMINISTRATOR was looking in to for pt. Then OT went over opening containers and increasing his fine motor control. Pt has difficulty opening packaging. He lacks digit control. OT did not attempt a modified technique while utilizing (L) today as it is important that pt continues to use his (R) UE. Pt is receptive to all education and training provided. He does require vc and sometimes repeated instructions due to difficulty with work finding. TREATMENT CODES/TIME: 70556, 10 minutes (09:05) NAITVIDAD [facility]
--- NOTE | 2021-03-16 11:10 | PTTR_ITS ---
Date of service: 03/16/21 Time of Service: 11:10 PT Notes Visit Reasons: EXPRESSIVE APHASIA, ALTERED MENTAL STATUS Inpatient Physical Therapy Treatment Note [facility] Date: 03/16/2021 PRECAUTIONS: R hemineglect. Broca's aphasia. Fall risk. SUBJECTIVE: Gave the thumbs up sign when asked how he is doing. Very motivated to participate in exercises. Denie headache, dizziness, and chest pain throughout session. Stated that he is not fatigued after today's intensive session. OBJECTIVE: PAIN: Denies BED MOBILITY/TRANSFERS Sit-supine: minimal assist with HOB at 30 degrees Sit-stand: contact guard assist Stand-sit: contact guard assist GAIT Assistive Device: FWW Weight bearing: Full Assist: CGA Distance: 100 feet + 100 feet Deviation: Wheelchair follow needed. Moderate cues given for improved environmental scanning while managing walker to minimize adverse effect of R hemineglect and visual impairment. Increased R stance time. No LOB. THEREX: Worked on increasing step height and length while maximizing dynamic stability in standing while inside parallel bars with utilization of [employer]ight[employer] stepper. Facilitated gait stability with strengthening exercises for hip abductors using 2.5 lb AW. Also stimulated rhythmical alternating UE/LE movements using the NuStep while working on increasing B UE/LE strength with resistance of 9 and duation of 10 minutes. No report of fatigue in patient. ASSESSMENT: Patient is demonstrating increasing activity tolerance but continues to be limited by R hemineglect, impaired depth perception in the R UE, and perceptual deficit. Remains a moderate to high fall risk. Was fully independent with mobility ADLs prior to admission. PLAN: Progress mobility independence, balance skills, and strength as tolerated. TREATMENT CODE/TIME: 60517 x 30 minutes, 58162 x 21 minutes beginning at 11:10 AM. CC:
--- NOTE | 2021-03-16 13:40 | SPP_ITS ---
Date of service: 03/16/21 Time of Service: 12:10 Francisco Sheriff was contacted in his room, upright in a chair, for lunch follow-up this date. He indicated via Y/N responses he was agreeable to participate in continued speech & swallow monitoring and management. RT & RN were present for initial portion of this session to provide deep suctioning given patient's baseline congested breathing and difficulty coughing. Per RN, patient's baseline congested breathing has worsened since laying supine last night. HYDRAULIC LIFT DRIVER returned in PM to patient's room during family visit to provide further education/updates and take questions. At that time, patient and family endorsing he primarily ate minced/moist or purees at baseline due to edentulous and pain with chewing. Objective/Assessment/Plan Objective Treatment Techniques & Outcomes: Jail Goals: 1. Patient will improve communication ability to moderate-severe deficit with provided supports/cueing in context of expressive aphasia in order to enhance patient decision making and reduce overall patient frustration/caregiver burden upon discharge. 2. Patient will demonstrate tolerance of least restrictive diet while on unit in order to maintain quality of life. Short Term Goals: 1.1 The patient will repeat functional C-V and C-V-C combinations at 60% accuracy given maximum verbal/visual cues. Not formally addressed, though patient with 1x spontaneous use of No in response to RN at beginning of session. 1.2 The patient will initiate use of visual AAC support in 60% of opportunities given maximum visual/verbal cues from clinician/caregiver(s). IN PROGRESS: Patient denies use of AAC board/notebook to communicate since last session. Able to point to +2/2 tiles given verbal prompt: Point to dizzy etc. Patient also accurately pointed to +2/2 written, single syllable words (no pictures) from a field of 4 given verbal stimulus. When asked to use communication notepad to request assistance with cutting food, patient was unwilling to participate. 1.3 Staff/caregiver(s) will demonstrate comprehension and appropriate application of both swallowing and communication supports/strategies to promote overall patient wellbeing and participation in decision-making upon discharge. IN PROGRESS: Swallowing: Provided education to RN, patient, and patient's family members re: appropriate level of assist, diet texture modification, oral care procedures, and safe swallow strategies as outlined below, with rationale as relates to patient-specific deficits (e.g., R side weakness/reduced sensation). 2.1 Patient will demonstrate tolerance of Level 0 - thin liquids and 6 - soft/bite sized solids w negative overt s/sx of aspiration in 90% of opportunities given minimal verbal cues for use of safe swallowing strategies as appropriate in order to increase ability to consume least restrictive diet while on unit. IN PROGRESS: RESPIRATORY STATUS: Baseline wheezy/congested breathing noises. Pt with very weak/inadequate volitional cough. RT performed deep suction prior to oral care and PO trials produced small amount of milky white sputum. Patient with stronger cough during suction. Self-feeding status: Patient largely successful with initial trials, but requiring increased level of assist as meal progressed to load fork, hold cup, and place food in mouth. Food items tested: [ ] None. Further swallow assessment not warranted at this time. [ ] Ice: [X] IDDSI 0: (water via straw, milk via two handled mug with contoured lid/spout) [ ] IDDSI 1: [ ] IDDSI 2: [ ] IDDSI 3: [X] IDDSI 4: (mashed potatoes) [X] IDDSI 5: (salmon mashed with a fork) [X] IDDSI 6: (salmon) [X] IDDSI 7: (brocolli, al dente) [ ] Pill/tablet: Oral phase: [] WFL [X] Leakage from mouth - puree, thin liquid [X] Difficulty with bolus manipulation [X] Difficulty with a-p transport [X] Difficulty chewing (2/2 edentulousness) [X] Pocketing (Right sided) [X] Residue (R>L Pharyngeal phase: [ ] WFL [X] Delayed swallow initiation suspected [ ] Reduced hyolaryngeal elevation/excursion [X] Cough after swallow (only after initial trial of thin liquid via straw, self-selected. All further trials, no cough or throat clear) [ ] Voice change after swallow ? unable to assess 2/2 largely non-verbal [x] Throat clearing [ ] Endorsed stasis Additional strategies trialed this date: (+) Cue to clear R sided stasis/pocketing (+/-) Cue to place food on L side of mouth (-) Cue to cough/clear throat (reflexive cough stronger than volitional) Assessment ASSESSMENT: This session focused primarily on dysphagia management follow-up over the course of full meal with range of textures. Given patient with baseline congested breathing and minimal verbal output, it is very difficult to rule aspiration in or out at this time, but suspect patient is at moderate-high risk of aspiration- related complication given notable oral dysphagia with R sided weakness and reduced sensation as well as reduced cough strength. Safe swallow/feeding s trategies are especially important for this patient given difficulty clearing aspirated/penetrated material from the airway or laryngeal vestibule. Given some difficulty chewing/biting tougher solids (tough broccoli) and significant effort to load fork and self feed, recommend minced/moist diet (IDDSI level 5) at this time to facilitate increased feeding independence which appears to be important to the patient, especially given this diet appears to be similar to his baseline diet at home. It is recommended to increase level of assistance to 1:1 for assistance with feeding and cues to follow strategies as outlined below. Would recommend consideration of instrumental swallow assessment (MBS) prior to discharge if scheduling allows, or as an outpatient if discharge location is unable to complete. Regarding communication status, patient continues to demonstrate relative strengths in auditory comprehension with very minimal verbal expression 2/2 apraxia vs aphasia (likely both). He is unable to write. He will benefit from more comprehensive assessment from HYDRAULIC LIFT DRIVER at discharge location. Able to read single words for AAC use or multiple choice (up to field of 4) response via pointing. Recommend care team to help him utilize these options as much as possible. Patient with minimal AAC initiation/engagement this date, will benefit from further encouragement or tailored options. Prognosis: FAIR given: time since onset (+), age (-), severity (-), prior level of function (+) DISCHARGE recommendations: Patient would benefit from SNF or inpatient rehabilitation to address swallowing and communication function with HYDRAULIC LIFT DRIVER, and may be appropriate for longwall machine operator helper care pending progress. Continue to recommend HYDRAULIC LIFT DRIVER services in an inpatient rehab or SNF setting to maximize recovery of communication function and receive further AAC training. Plan Plan: HYDRAULIC LIFT DRIVER to continue to follow patient while on unit up to 5x/weekly until discharged. Recommendations Recommendations: Recommendations: Communication: - Utilize Y/N questions, options of 2 whenever possible, allow time for response as needed to enhance communicative participation - AAC board and/or booklet for expressive communication; may also utilize AAC board/booklet to enhance verbal understanding given lack of visual cues with masks - Patient is able to read simple/single words - use written cues for enhanced comprehension or to facilitate communication via AAC PRN Instrumentation: CONSIDER MBS if patient is still inpatient on Friday Diet Texture Modification(s): IDDSI Level(s) 5-Minced/Moist, 0-Thin Liquids Medication Intake: Whole with 4-pureed or as tolerated Alter medications only as advised by MD or Pharmacist RISK MANAGEMENT: - Assist for thorough oral care Oral hygiene BID/2x per day and before/after PO intake using friction with toothbrush/suction sponge on all oral structures as tolerated HOB upright as tolerated; upright for all PO intake. Encourage physical mobility as tolerated. Level of Assistance/Supervision: 1:1 assist / supervision PO intake only when awake/alert Strategies/Adaptations/Assistive Equipment: Provide verbal and/or visual cues to use recommended strategies - Encourage small sips with thin liquids, clear throat+re-swallow (continue to monitor for overt s.s aspiration, trial adaptations as needed) - Chew on LEFT side of mouth, provide reminders/cues to clear R sided pocketing/stasis - Small sips and bites when eating - Slow rate of intake - Alternate intake of liquids and solids Posture/Positioning Needs: Maintain upright position at least 30 minutes after meals, Avoid meals/snacks 2- 3 hours prior to reclining/sleeping, Sleep with head of bed elevated to reduce likelihood of nocturnal reflux Total Time Spent: 50 min Treatment code: 71891 Dysphagia tx Coding
[2021-03-16] MEDS: Budesonide 0.5 MG/2 ML UPD VIAL 1 MG IH ×2 (13:51→20:30)
--- NOTE | 2021-03-16 14:35 | DM INPTCON_ITS ---
Date of service: 03/16/21 Time of Service: 14:35 Diabetes Inpatient Consult DESCRIPTION/ASSESSMENT: Assessment: 80yo male with altered mental status/ambulatory dysfxn r/t CVA. PMH for HTN. Meds: Apixaban, Clopidogrel, Ducosate Sodium, Rosubastatin, Metoprolol, MOM, Mylanta, KCl. Currently on HH diet order with reg textures with speech consult pending. A1c (5.7) wnl. Unable to get accurate diet and weight history from patient today. Weight taken this December was ~83kg multiple occasions (seems to be his UBW), down to 78kg on 03/14, and then down to ~64kg yesterday and today. If accurate weights, this translates to >20% wt loss from UBW in 2 months. Current BMI (19.7) is on low end of normal. Estimated needs to prevent further weight loss: 1640kcals (REEX1.2), 51-64g protein (.8-1g/kg) and 1640mL fluid (1mL/kcal). Diagnosis: Sever weight loss and moderate nutrition risk r/t multiple age and medical related factors AEB losing more than 20% of UBW in 2 months. Intervention: Will send softer, more manageable food choices on trays until speech consult directs with appropriate order. If unintentional weight loss has occurred at this rate, would consider more aggressive nutrition therapy to prevent further weight loss. Would suggest vitamin D lab due to at age/ge ographic location/dietary high risk for deficiency. Monitoring/evaluation: will monitor weights daily and ability to take in calories to prevent further weight loss. Josh Bobo NDDANIEL ? Keg Varnisher Time Spent in Nutritional Counseling and Treatment: 20
[2021-03-16] MEDS: Scopolamine 1 MG/3 DAYS PATCH TD (15:17)
--- NOTE | 2021-03-16 15:53 | W.PM.PROGNOT ---
Date of Service Date of service: 03/16/21 Time of Service: 16:19 Assessment and Plan Assessment and plan (1) CVA (cerebral vascular accident): Start date: 03/16/21 Start time: 16:28 Status: Acute Assessment and plan: already on plavix, allergic to asa. discussed anticoagulation with patient and risks of bleeding. 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 His echo last admission December 2020 showed EF of 55%. No thrombus noted. Repeat Echo for Friday patient wishes to start anticoagulation started on eliquis MRI shows: IMPRESSION: Compared to the prior MRI scan of 01/15/2021 there is again noted prominent chronic ischemic white matter changes. However, on the present study there are new ischemic foci evident in the left periventricular white matter and right supra ventricular white matter, both exhibiting restricted diffusion.. There is no evidence of hemorrhage at these levels. The previously described acute ischemic event in the right anterior tariq seen on the MRI scan of December 2020 no longer exhibits restricted diffusion. MRA: IMPRESSION: 1. Patent intracranial internal carotid arteries. Patent middle cerebral arteries. Patent anterior cerebral arteries. 2. 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 3. No aneurysms evident. 4. No significant venous sinus thrombosis evident. See separate brain MRI report dictated today. This reveals a new bilateral significant findings in the periventricular white matter consistent with acute bilateral ischemic events, possibly embolic. (2) Altered mental status: Start date: 03/16/21 Start time: 16:31 Status: Resolved Assessment and plan: at baseline (3) Rapid atrial fibrillation: Start date: 03/16/21 Start time: 16:31 Status: Resolved Assessment and plan: increase lopressor Controlled rate d/c telemetery (4) HTN (hypertension): Start date: 03/16/21 Start time: 16:32 Status: Chronic Assessment and plan: hold any home antihypertensives PT bp has been soft. Will restart antihypertensives when necessary (5) DVT prophylaxis: Start date: 03/16/21 Start time: 16:32 Status: Acute Assessment and plan: will be fully anticoagulated on eliquis (6) Discharge planning issues: Start date: 03/16/21 Start time: 16:33 Status: Acute Assessment and plan: He would benefit from [facility] he is agreeable to this. discharge discussed with DR Duncan. Subjective Subjective Patient reports: other Interval history since last seen: Unable to speak but uses hand gestures. Agreeable to [facility] for rehab. Seen by speech recommend that someone be with him at all times while eating for monitoring of respiratory status and helping with feeding. He has been changed to minced moist diet with thin liquids. Exam Narrative Exam Narrative: General: Pleasant elderly male who looks younger than his stated age, having expressive aphasia, understands questions unable to verbalize, gives thumbs up or shakes head no. He is cooperative and following commands Neurological: A&O at least x3. Moving all 4 extremities. CN II-XII intact, 5/5 strength B, sensory intact, plantar response flexion B, DTRs 1+ B. Psychiatric: Difficult to fully evaluate due to expressive aphasia. Cooperative Skin: two small ecchymoses seen on L side of the abdomen (purple), otherwise intact HEENT: Atraumatic, normocephalic, EOMI, MMM, clear oropharynx, no submandibular or cervical lymphadenopathy, no goiter or JVD Cardiovascular: irregularly irregular rhythm, no m/r/g Lungs: CTAB Gastrointestinal: soft, nontender, nondistended Extremities: no edema BLE's, dry skin. Objective Last Vital Signs Temp 36.6 C 03/16/21 15:48 Pulse 73 03/16/21 15:48 Resp 17 03/16/21 15:48 BP 96/67 L 03/16/21 15:48 Pulse Ox 95 03/16/21 15:48 Laboratory Results - last 24 hr 03/16/21 03/16/21 06:05 06:05 WBC 6.97 RBC 5.06 Hgb 14.2 Hct 43.0 MCV 85.0 MCH 28.1 MCHC 33.0 RDW 14.1 Plt Count 183 MPV 13.0 H Sodium 137 Potassium 4.3 D Chloride 101 Carbon Dioxide 26.9 Anion Gap 9.1 BUN 11 Creatinine 1.0 Estimated GFR/1.73 m2 >= 60.00 Glucose 91 Calcium 8.6
--- NOTE | 2021-03-16 16:07 | PT.INTREAT ---
Date of service: 03/16/21 Time of Service: 14:29 PT Notes Visit Reasons: EXPRESSIVE APHASIA, ALTERED MENTAL STATUS Inpatient Physical Therapy Treatment Note [facility] Date: 03/16/2021 PRECAUTIONS: Fall, Broca's Aphasia, R hemineglect SUBJECTIVE: Jaziel is pleasant and agreeable to participating in PT. OBJECTIVE: PAIN: No c/o pain BED MOBILITY/TRANSFERS Supine-sit: SBA with HOB at 30 degrees Sit-stand: SBA Stand-sit: SBA GAIT Assistive Device: FWW Weight bearing: Full Assist: CGA Distance: 225' + 75' Deviation: Decreased step height/length on R, cues to look to R, path deviation to R, occasional LOB requiring Min A THEREX: Patient was instructed in a seated resisted UE strengthening program, utilizing orange Theraband, as per flow sheet. He requires verbal cueing to involve R arm, and visual cueing for proper exercise performance. ASSESSMENT: Patient continues to demonstrate right-sided hemineglect, requiring cueing to look to right and utilize right hand. He had several instances of LOB with gait training, requiring Min A for recovery. PLAN: Continue with gait and transfer training for improved mobility. TREATMENT CODE/TIME: 29 minutes; 88554, 67097 (14:29)
--- NOTE | 2021-03-16 17:08 | PDOC.CMPRO ---
Care Management Progress Note S/O: Sg remains inpatient, continues to work with skilled services, PT and ST recommending [facility], family's first choice as well. Referrals faxed today, CM continues to follow. A: 80 year old male admitted to [facility] 03/14/21 Expressive aphasia, AMS P: Referrals faxed to [facility], per family wishes. CM continues to follow.
--- NOTE | 2021-03-16 17:51 | CHAPLAIN ---
Sg was resting in bed when I visited. He communicated by giving the thumbs up sign. I explained my role and offered support. We had a brief conversation.
[2021-03-17 03:30] VITALS: BP 119/83; PULSE 95; RESP 17; TEMP 35.6; O2SAT 97
[2021-03-17 07:45] LABS: Anion Gap 10.4 mmol/L (3-11); BUN 16 mg/dL (7-18); CO2 24.6 mmol/L (21.0-32.0); Calcium 8.8 mg/dL (8.5-10.1); Chloride 101 mmol/L (98-107); Glucose 89 mg/dL (74-106); Potassium 4.6 mmol/L (3.5-5.1); Sodium 136 mmol/L (136-145)
--- NOTE | 2021-03-17 10:00 | PTTR_ITS ---
Date of service: 03/17/21 Time of Service: 09:22 PT Notes Visit Reasons: EXPRESSIVE APHASIA, ALTERED MENTAL STATUS Inpatient Physical Therapy Treatment Note [facility] Date: 03/16/2021 PRECAUTIONS: Fall, R hemineglect, Broca's aphasia SUBJECTIVE: Indicated with a thumbs up sign that he is feeling good today, and that he is agreeable to participating in PT. OBJECTIVE: PAIN: No c/o pain BED MOBILITY/TRANSFERS Sit-supine: SBA with HOB flat Sit-stand: SBA Stand-sit: SBA GAIT Assistive Device: SENIOR UI SOFTWARE ENGINEER on R SPC in L + SENIOR UI SOFTWARE ENGINEER on R Weight bearing: Full Assist: CGA Distance: 75' with SENIOR UI SOFTWARE ENGINEER 125' with SPC + SENIOR UI SOFTWARE ENGINEER Deviation: Max cueing for environmental scanning due to R-sided hemineglect, seated rest, easily distracted ASSESSMENT: Patient continues to demonstrate R-sided hemineglect which affects his ability to safely navigate with ambulation without max cueing. He was able to tolerate gait training with SPC and SENIOR UI SOFTWARE ENGINEER today, although is easily distracted requiring moderate cueing to return to task. PLAN: Continue with gait training as well as strengthening for improved activity tolerance and mobility. TREATMENT CODE/TIME: 26 minutes; 03846 x2 (09:22)
[2021-03-17] MEDS: Lachydrin 12% LOTION 225 GM BTL TP ×2 (10:36→20:18)
[2021-03-17] MEDS: Fluticasone NASAL SPRAY 16 GM BTL NS (10:36)
[2021-03-17] MEDS: Rosuvastatin 10 MG TAB 40 MG PO (10:37)
[2021-03-17] MEDS: Clopidogrel 75 MG TAB PO (10:37)
[2021-03-17] MEDS: Metoprolol 12.5 MG TAB PO ×2 (10:37→20:15)
[2021-03-17] MEDS: Normal Saline Flush 10 ML SYR IVP ×2 (10:37→20:10)
[2021-03-17] MEDS: Apixaban 5 MG TAB PO ×2 (10:37→20:15)
[2021-03-17] MEDS: Albuterol HFA 8 GM 60 PUFF INH IH ×2 (11:23→20:13)
[2021-03-17] MEDS: Budesonide 0.5 MG/2 ML UPD VIAL 1 MG IH ×2 (11:25→20:17)
[2021-03-17] MEDS: Acetylcysteine 20% *ORAL/INHALED* 6000 MG/30 ML VIAL 600 MG UPD (14:28)
[2021-03-17] MEDS: Albuterol 2.5 MG/3 ML INH SOLN VIAL UPD (14:28)
--- NOTE | 2021-03-17 14:40 | W.PM.PROGNOT ---
Date of Service Date of service: 03/17/21 Time of Service: 14:43 Assessment and Plan Assessment and plan (1) CVA (cerebral vascular accident): Start date: 03/17/21 Start time: 13:15 Status: Acute Assessment and plan: already on plavix, allergic to asa. 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 His echo last admission December 2020 showed EF of 55%. No thrombus noted. Repeat Echo for Friday patient wishes to start anticoagulation started on eliquis this will be in addition to plavix as this is his second stroke, neuro consult for Friday Continue PT/OT MRI shows: IMPRESSION: Compared to the prior MRI scan of 01/15/2021 there is again noted prominent chronic ischemic white matter changes. However, on the present study there are new ischemic foci evident in the left periventricular white matter and right supra ventricular white matter, both exhibiting restricted diffusion.. There is no evidence of hemorrhage at these levels. The previously described acute ischemic event in the right anterior tariq seen on the MRI scan of December 2020 no longer exhibits restricted diffusion. MRA: IMPRESSION: 1. Patent intracranial internal carotid arteries. Patent middle cerebral arteries. Patent anterior cerebral arteries. 2. 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 3. No aneurysms evident. 4. No significant venous sinus thrombosis evident. See separate brain MRI report dictated today. This reveals a new bilateral significant findings in the periventricular white matter consistent with acute bilateral ischemic events, possibly embolic. Qualifiers: CVA mechanism: unspecified Qualified Code(s): I63.9 - Cerebral infarction, unspecified (2) Altered mental status: Start date: 03/17/21 Start time: 13:15 Status: Resolved Assessment and plan: AAOx3 Qualifiers: Altered mental status type: unspecified Qualified Code(s): R41.82 - Altered mental status, unspecified (3) Rapid atrial fibrillation: Start date: 03/17/21 Start time: 13:15 Status: Resolved Assessment and plan: lopressor increased not requiring any other medications at the time (4) HTN (hypertension): Start date: 03/17/21 Start time: 13:15 Status: Chronic Assessment and plan: hold any home antihypertensives PT bp has been soft. Will restart antihypertensives when necessary (5) DVT prophylaxis: Start date: 03/17/21 Start time: 13:15 Status: Acute Assessment and plan: will be fully anticoagulated on eliquis (6) Discharge planning issues: Start date: 03/17/21 Start time: 13:15 Status: Acute Assessment and plan: He would benefit from [place] he is agreeable to this. discharge discussed with Dr Ching Subjective Subjective Patient reports: no new complaints Interval history since last seen: Patient sitting up in chair. Rhonchi to upper airways bilaterally will trial mucomyst with suction to help with secretions. Follow speech recommendations for diet. Patient has no complaints. AAOx3 understands and follows directions able to communicate by shaking head, giving thumbs up and down and using communication table in front of him. No needs at this time. Exam Narrative Exam Narrative: General: Pleasant elderly male who looks younger than his stated age, having expressive aphasia, understands questions unable to verbalize, gives thumbs up or shakes head no. He is cooperative and following commands Neurological: A&O at least x3. Moving all 4 extremities. CN II-XII intact, 5/5 strength B, sensory intact, plantar response flexion B, DTRs 1+ B. Psychiatric: Difficult to fully evaluate due to expressive aphasia. Cooperative Skin: two small ecchymoses seen on L side of the abdomen (purple), otherwise intact HEENT: Atraumatic, normocephalic, EOMI, MMM, clear oropharynx, no submandibular or cervical lymphadenopathy, no goiter or JVD Cardiovascular: irregularly irregular rhythm, controlled. no m/r/g Lungs: Rhonchi to upper airway bilaterally. Gastrointestinal: soft, nontender, nondistended Extremities: no edema BLE's, dry skin. Objective Last Vital Signs Temp 35.6 C L 03/17/21 03:30 Pulse 95 H 03/17/21 03:30 Resp 17 03/17/21 03:30 BP 119/83 03/17/21 03:30 Pulse Ox 97 03/17/21 03:30 Laboratory Results - last 24 hr 03/17/21 06:43 Sodium 136 Potassium 4.6 Chloride 101 Carbon Dioxide 24.6 Anion Gap 10.4 BUN 16 Creatinine 1.0 Estimated GFR/1.73 m2 >= 60.00 Glucose 89 Calcium 8.8
[2021-03-17 19:47] VITALS: BP 126/86; PULSE 95; RESP 20; TEMP 36.5; O2SAT 96
[2021-03-17] MEDS: Lactated Ringers 1,000 ML 75 ML IV (21:51)
[2021-03-17 23:39] VITALS: BP 119/74; PULSE 86; RESP 18; TEMP 36.6; O2SAT 97
--- NOTE | 2021-03-18 | DI.RAD_ITS ---
Exam(s) XR CHEST 2V PA LATERAL EXAM: XR CHEST 2V PA LATERAL CLINICAL HISTORY: ?? aspiration pneumo TECHNIQUE: 2D digital imaging was performed. COMPARISON: CR XR CHEST 2V PA LATERAL from 03/16/2021 FINDINGS: MEDIASTINUM: Calcified and tortuous aorta. HEART: Normal. PULMONARY VASCULATURE: Normal. LUNGS: Clear. PLEURAL SPACE: No pleural effusion or pneumothorax. BONE:Stable midthoracic compression fractures. Bones appear osteopenic. Degenerative changes are no melissa in the shoulders. IMPRESSION: No acute abnormality. DATA REPOSITORY: RADIATION DOSE DELIVERED:
[2021-03-18 03:35] VITALS: BP 135/84; PULSE 92; RESP 18; TEMP 36; O2SAT 96
[2021-03-18 07:45] VITALS: BP 115/81; PULSE 66; RESP 16; TEMP 36.5; O2SAT 97
[2021-03-18] MEDS: Rosuvastatin 10 MG TAB 40 MG PO (08:20)
[2021-03-18] MEDS: Metoprolol 12.5 MG TAB PO ×2 (08:20→19:47)
[2021-03-18] MEDS: Apixaban 5 MG TAB PO ×2 (08:20→19:47)
[2021-03-18] MEDS: Clopidogrel 75 MG TAB PO (08:21)
[2021-03-18] MEDS: Albuterol HFA 8 GM 60 PUFF INH IH ×2 (08:36→19:47)
[2021-03-18] MEDS: Budesonide 0.5 MG/2 ML UPD VIAL 1 MG IH (08:36)
--- NOTE | 2021-03-18 10:46 | DI.VRAD_ITS ---
PROCEDURE INFORMATION: Exam: XR Chest Exam date and time: 03/18/2021 9:57 AM Age: 80 years old Clinical indication: Other: Aspiration pneumonia TECHNIQUE: Imaging protocol: XR of the chest. Views: 2 views. COMPARISON: CR XR CHEST 2V PA LATERAL 03/16/2021 8:29 AM FINDINGS: Lungs: The lungs are normally expanded and clear. Pleural spaces: Normal. Heart/Mediastinum: Normal heart and cardio-mediastinal silhouette. Vasculature: Vascular calcification at the level of the aortic knob. Bones/joints: Intact and normally aligned. No suspicious lesion. Left glenohumeral sclerosis and humeral head spurring/osteoarthrosis. IMPRESSION: No acute disease or interval change. Negative for pneumonia. Dictated and Authenticated by: Ed Fine MD. Ordering:BETO Williamson MD
--- NOTE | 2021-03-18 11:08 | PT.INTREAT ---
Date of service: 03/18/21 Time of Service: 09:58 PT Notes Visit Reasons: EXPRESSIVE APHASIA, ALTERED MENTAL STATUS Inpatient Physical Therapy Treatment Note [facility] Date: 03/18/2021 PRECAUTIONS: Fall, R hemineglect, Broca's aphasia SUBJECTIVE: Indicated with a thumbs up sign that he is feeling good today, and that he is agreeable to participating in PT. OBJECTIVE: PAIN: No c/o pain BED MOBILITY/TRANSFERS Sit-supine: S with HOB flat Sit-stand: S Stand-sit: SBA GAIT Assistive Device: SPC in L + PHYSICAL SECURITY ENGINEER on R Weight bearing: Full Assist: CGA Distance: 150' + ~10 minutes Deviation: Max cueing for environmental scanning due to R-sided hemineglect, seated rest, less distracted today, cues for increased step height/length and ahmet THEREX: Patient was instructed in LAQ while seated at EOB x6 with AA, as per flow sheet. ASSESSMENT: Patient continues to demonstrate R-sided hemineglect which affects his ability to safely navigate with ambulation without max cueing. He was able to tolerate gait training with SPC and PHYSICAL SECURITY ENGINEER today, demonstrating improved gait mechanics, althoughstill requiring cueing for increases step height/length and ahmet. PLAN: Continue with gait training as well as strengthening for improved activity tolerance and mobility. TREATMENT CODE/TIME: 28 minutes; [id number] x2 (09:58)
[2021-03-18 11:36] VITALS: BP 106/61; PULSE 78; RESP 18; TEMP 36.3; O2SAT 95
[2021-03-18 12:16] LABS: Abs Immature Grans 0.01 10^3/uL (0.0-0.06); Absolute Basophil Count 0.06 10^3/uL (0.0-0.2); Absolute Eosinophil Count 0.13 10^3/uL (0.0-0.7); Absolute Lymphocyte Count 0.92 10^3/uL (1.2-3.4); Absolute Monocyte Count 0.51 10^3/uL (0.1-0.8); Absolute Neutrophil Count 3.82 10^3/uL (1.2-6.7); Basophils % 1.1; Eosinophils % 2.4; HCT 40.2 % (40.0-50.0); Immature Grans % 0.2; Lymphocytes % 16.9; MCH 28.1 pg (27.0-33.0); MCHC 32.3 % (32.0-36.0); MCV 86.8 fL (80-95); MPV 12.5 fL (8.0-11.0); Monocytes % 9.4; Nucleated RBC 0 %; Platelet Count 190 10^3/uL (130-400); RBC 4.63 10^6/uL (4.36-5.78); RDW 14.3 % (11.8-14.1); RDW-SD 45.6 fL; WBC 5.45 10^3/uL (4.4-10.8)
--- NOTE | 2021-03-18 13:57 | W.PM.PROGNOT ---
Date of Service Date of service: 03/18/21 Time of Service: 11:15 Assessment and Plan Assessment and plan (1) CVA (cerebral vascular accident): Start date: 03/18/21 Start time: 11:15 Status: Acute Assessment and plan: already on plavix, allergic to asa. 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 His echo last admission December 2020 showed EF of 55%. No thrombus noted. Repeat Echo for Friday patient wishes to start anticoagulation started on eliquis this will be in addition to plavix as this is his second stroke, neuro consult for Friday Spoke to [facility] neuro about plavix and eliquis they did not have any suggestions and could not answer if this was a good choice. Will wait for Dr. Mane opinion on Friday to decided whether or not to keep him on both, this was recommended by neuro at [facility] Continue PT/OT MRI shows: IMPRESSION: Compared to the prior MRI scan of 01/15/2021 there is again noted prominent chronic ischemic white matter changes. However, on the present study there are new ischemic foci evident in the left periventricular white matter and right supra ventricular white matter, both exhibiting restricted diffusion.. There is no evidence of hemorrhage at these levels. The previously described acute ischemic event in the right anterior tariq seen on the MRI scan of December 2020 no longer exhibits restricted diffusion. MRA: IMPRESSION: 1. Patent intracranial internal carotid arteries. Patent middle cerebral arteries. Patent anterior cerebral arteries. 2. 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 3. No aneurysms evident. 4. No significant venous sinus thrombosis evident. See separate brain MRI report dictated today. This reveals a new bilateral significant findings in the periventricular white matter consistent with acute bilateral ischemic events, possibly embolic. Qualifiers: CVA mechanism: unspecified Qualified Code(s): I63.9 - Cerebral infarction, unspecified (2) HTN (hypertension): Start date: 03/18/21 Start time: 11:15 Status: Chronic Assessment and plan: hold any home antihypertensives PT bp has been soft. Will restart antihypertensives when necessary Qualifiers: Hypertension type: primary hypertension Qualified Code(s): I10 - Essential (primary) hypertension (3) DVT prophylaxis: Start date: 03/18/21 Start time: 11:15 Status: Acute Assessment and plan: fully anticoagulated on eliquis (4) Discharge planning issues: Start date: 03/18/21 Start time: 11:15 Status: Acute Assessment and plan: He would benefit from [place] he is agreeable to this. discharge discussed with Dr Ching Subjective Subjective Patient reports: no new complaints Interval history since last seen: Sitting up in chair. no new complaints. Yesterday after having mucomyst and getting suctioned, all that was suctioned was food per respiratory. Therefor he is likely aspirating. He was changed to an NPO diet with thin liquids and ensure, until seen by speech again. he was able to cough today and LS were Clear today. CXR done today to r/o asp pneumo. CXR negative. No leukocytosis, afebrile. Exam Narrative Exam Narrative: General: Pleasant elderly male who looks younger than his stated age, having expressive aphasia, understands questions unable to verbalize, gives thumbs up or shakes head no. He is cooperative and following commands Neurological: A&O at least x3. Moving all 4 extremities. CN II-XII intact, 5/5 strength B, sensory intact, plantar response flexion B, DTRs 1+ B. Psychiatric: Difficult to fully evaluate due to expressive aphasia. Cooperative Skin: two small ecchymoses seen on L side of the abdomen (purple), otherwise intact HEENT: Atraumatic, normocephalic, EOMI, MMM, clear oropharynx, no submandibular or cervical lymphadenopathy, no goiter or JVD Cardiovascular: irregularly irregular rhythm, controlled. no m/r/g Lungs: Rhonchi to upper airway bilaterally. Gastrointestinal: soft, nontender, nondistended Extremities: no edema BLE's, dry skin. Objective Last Vital Signs Temp 36.3 C L 03/18/21 11:36 Pulse 78 03/18/21 11:36 Resp 18 03/18/21 11:36 BP 106/61 03/18/21 11:36 Pulse Ox 95 03/18/21 11:36 Laboratory Results - last 24 hr 03/18/21 11:55 WBC 5.45 RBC 4.63 Hgb 13.0 L Hct 40.2 MCV 86.8 MCH 28.1 MCHC 32.3 RDW 14.3 H Plt Count 190 MPV 12.5 H Immature Gran % 0.2 Neutrophils % 70.0 Lymphocytes % 16.9 Monocytes % 9.4 Eosinophils % 2.4 Basophils % 1.1 Nucleated RBC % 0 Absolute Neutrophils 3.82 Absolute Lymphocytes 0.92 L Absolute Monocytes 0.51 Absolute Eosinophils 0.13 Absolute Basophils 0.06
[2021-03-18 15:35] VITALS: BP 130/83; PULSE 78; RESP 18; TEMP 36.3; O2SAT 97
[2021-03-18] MEDS: Mylanta Suspension 30 ML CUP PO (18:07)
[2021-03-18] MEDS: Lachydrin 12% LOTION 225 GM BTL TP (19:46)
[2021-03-18 20:14] VITALS: BP 125/74; PULSE 100; RESP 18; TEMP 36.5; O2SAT 97
[2021-03-19 00:01] VITALS: BP 126/72; PULSE 97; RESP 18; TEMP 36.7; O2SAT 97
[2021-03-19 03:42] VITALS: BP 125/74; PULSE 97; RESP 16; TEMP 36.7; O2SAT 97
[2021-03-19] MEDS: Apixaban 5 MG TAB PO ×2 (07:44→19:28)
[2021-03-19] MEDS: Metoprolol 12.5 MG TAB PO ×2 (07:44→19:28)
[2021-03-19] MEDS: Clopidogrel 75 MG TAB PO (07:44)
[2021-03-19] MEDS: Rosuvastatin 10 MG TAB 40 MG PO (07:44)
[2021-03-19] MEDS: Normal Saline Flush 10 ML SYR IVP ×3 (07:45→19:38)
[2021-03-19 08:00] VITALS: BP 122/74; PULSE 92; RESP 18; TEMP 36.9; O2SAT 96
--- NOTE | 2021-03-19 09:07 | OT.INTREAT ---
Date of service: 03/19/21 Time of Service: 09:07 Occupational Therapy Notes Occupational Therapy Inpatient Treatment Note Date: 03/19/21 PRECAUTIONS: Fall, standard, DNR SUBJECTIVE: Pt was lying in bed when OT arrived. He was agreeable to OT session and use of the communication board provided by ROUTE PROCESS ADMINISTRATOR. OBJECTIVE: PAIN:0/10 FUNCTIONAL MOBILITY Rolling L/R: (I) Supine-sit: Mod vc and min (A) Sit-stand: CGA Stand-sit: CGA Bed-Chair: CGA with FWW, PRESSURE TEST OPERATOR reports that he was using a cane however this was not in the room. BATHING: sitting in chair with max (A) Set up/clean up Upper Body: (I) face, (B) UE, max (A) back, max (A) hair Lower Body: (I) (B) LE, (I) with candy area although only fair technique at this time, pt performed this in the standing position. DRESSING: sitting in chair min vc throughout Upper Extremity: min (A) don and doffing [facility] Lower Extremity: Min (A) don and doffing (B) socks GROOMING: sitting in chair (I) brushing his hair ASSESSMENT/PLAN: Pt was able to verablize no and yes today, still having difficulty finding words, ROUTE PROCESS ADMINISTRATOR recommendations are extremely helpful in pts success for communicating. OT worked with pt in the chair on dressing and bathing, he requires vc throughout and was receptive to performance of his ADLs this morning. Overall he is doing well and his coordination is improving. TREATMENT CODES/TIME: [id number], 30 minutes (07:32) [facility]
--- NOTE | 2021-03-19 11:04 | DI.US_ITS ---
APPROVED REPORT EXAM: Comprehensive 2D, Doppler, and color-flow Echocardiogram Patient Location: In-Patient Room/Bed: [facility] Nursery Helper: Maryanne Ellis RDCS (AE) Indications: New embolic CVA, H/O A Fib Limited follow up ordered Other Information Study Quality: Fair. Technically limited study due to inability to position patient, body habitus. Conclusion Normal left ventricular wall thickness and chamber size. Estimated ejection fraction appears within the range of normal, 55 to 60%. No segmental wall motion abnormality is seen Normal right ventricular size and systolic function Left atrium is mildly dilated. The right atrium is normal size Mild mitral annular calcification Mild aortic valve sclerosis. No hemodynamic measurements were performed Overall compared to the echocardiogram from January 15, there is no obvious interval change Wall motion
[2021-03-19] MEDS: Pantoprazole 40 MG VIAL IVP (11:31)
[2021-03-19 12:49] VITALS: BP 130/75; PULSE 95; RESP 19; TEMP 36.5
--- NOTE | 2021-03-19 13:30 | CMPROGNOTE_ITS ---
- If Service Date Differs Date of service: 03/19/21 Time of Service: 13:30 Care Management Progress Note S/O: Sg was lying in bed when CM met with him. CM reviewed the plan with him, which is for him to go to a rehab. He agreed to this plan, confirming that Alvarez is the person who helps make decisions for him. He has a communication board in the room, but was not agreeable to using it. CM spoke to his grand daughter, Karin, and updated her regarding the referrals that were sent. CM attempted to reach [facility] today, but there was no answer. CM will continue to follow. A: Sg is an 80 year old male admitted to [facility] 03/14/21 Expressive aphasia, AMS P: Referrals faxed to [facility] and [facility], per family wishes. CM continues to follow.
--- NOTE | 2021-03-19 13:56 | PGE_ITS ---
Date of Service Date of service: 03/19/21 Time of Service: 13:56 Assessment and Plan Assessment and plan (1) Dysphagia: Status: Acute Assessment and plan: had required suctioning and was made NPO pending modified barium swallow exam, speech bedside recommends pureed and thickened fluids pending study. (2) CVA (cerebral vascular accident): Status: Acute Assessment and plan: already on plavix, allergic to asa. 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 His echo last admission December 2020 showed EF of 55%. No thrombus noted. Repeat Echo for Friday anticoagulation started on eliquis this will be in addition to plavix as it appears embolic, neuro consult for Friday Continue PT/OT MRI shows: IMPRESSION: Compared to the prior MRI scan of 01/15/2021 there is again noted prominent chronic ischemic white matter changes. However, on the present study there are new ischemic foci evident in the left periventricular white matter and right supra ventricular white matter, both exhibiting restricted diffusion.. There is no evidence of hemorrhage at these levels. The previously described acute ischemic event in the right anterior tariq seen on the MRI scan of December 2020 no longer exhibits restricted diffusion. MRA: IMPRESSION: 1. Patent intracranial internal carotid arteries. Patent middle cerebral arteries. Patent anterior cerebral arteries. 2. 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 3. No aneurysms evident. 4. No significant venous sinus thrombosis evident. See separate brain MRI report dictated today. This reveals a new bilateral significant findings in the periventricular white matter consistent with acute bilateral ischemic events, possibly embolic. Qualifiers: CVA mechanism: unspecified Qualified Code(s): I63.9 - Cerebral infarction, unspecified (3) Rapid atrial fibrillation: Status: Resolved Assessment and plan: rate is controlled. stable on lopressor 12.5 mg po bid. now fully anticoagated on eliquis. limited echo pending. (4) HTN (hypertension): Status: Chronic Assessment and plan: hold any home antihypertensives PT bp has been soft. Will restart antihypertensives when necessary Qualifiers: Hypertension type: primary hypertension Qualified Code(s): I10 - Essential (primary) hypertension (5) DVT prophylaxis: Status: Acute Assessment and plan: fully anticoagulated on eliquis (6) Discharge planning issues: Status: Acute Assessment and plan: He would benefit from [place] he is agreeable to this. discharge discussed with Dr Ching Subjective Subjective Patient reports: no new complaints, feels better and afebrile; denies shortness of breath Interval history since last seen: had required suctioning and was made NPO pending modified barium swallow exam, speech bedside recommends pureed and thickened fluids pending study. Exam Const General: cooperative, comfortable, no acute distress and frail appearing Nutritional Appearance: average body habitus Orientation: alert, awake and other [facility] Head: normal to inspection, normocephalic and atraumatic Mouth: oral mucosae normal Resp Effort & Inspection: normal respiratory effort Auscultation: clear to auscultation bilaterally Cardio Rate: tachycardic Rhythm: abnormal rhythm (controlled to uncontrolled afib) irregularly irregular GI Inspection: normal to inspection Palpation: soft Auscultation: normal bowel sounds Skin General skin exam: no rashes or lesions noted Neuro General: patient alert, patient awake and moves all extremities Speech: expressive aphasia Motor: muscle tone normal throughout and strength abnormal (right ataxia) Extrem General: normal to inspection, full ROM and no pedal edema Objective Last Vital Signs Temp 36.9 C 03/19/21 08:00 Pulse 92 H 03/19/21 08:00 Resp 18 03/19/21 08:00 BP 122/74 03/19/21 08:00 Pulse Ox 96 03/19/21 08:00
--- NOTE | 2021-03-19 15:29 | PTTR_ITS ---
Date of service: 03/19/21 Time of Service: 10:41 PT Notes Visit Reasons: EXPRESSIVE APHASIA, ALTERED MENTAL STATUS Inpatient Physical Therapy Treatment Note [facility] Date: 03/19/2021 PRECAUTIONS: Fall, R hemineglect, Broca's aphasia SUBJECTIVE: Indicated with a thumbs up sign that he is feeling good today, and that he is agreeable to participating in PT. OBJECTIVE: PAIN: No c/o pain BED MOBILITY/TRANSFERS Sit-supine: I with HOB flat Sit-stand: SBA Stand-sit: SBA GAIT Assistive Device: SPC in L Weight bearing: Full Assist: CGA-SBA Distance: 150' + 75' + 125' in a.m.; 200' in p.m. Deviation: Min cueing for environmental scanning due to R-sided hemineglect, less distracted, improved gait mechanics THEREX: Patient was instructed lateral walks, backward walking, lateral step- up/downs on Duragym, static balance activities, and functional [id number]. ASSESSMENT: Patient continues to demonstrate R-sided hemineglect which affects his ability to safely navigate with ambulation without min cueing. He was able to tolerate gait training with SPC and CGA-SBA, demonstrating improved gait mechanics. PLAN: Continue with gait training as well as strengthening for improved activity tolerance and mobility. TREATMENT CODE/TIME: Session 1: 35 minutes; [id number], [id number] (10:41) Session 2: 15 minutes; [id number] (14:56)
[2021-03-19 15:39] VITALS: BP 106/69; PULSE 89; RESP 17; TEMP 36.4; O2SAT 97
--- NOTE | 2021-03-19 15:40 | W.SPSTP ---
Date of service: 03/19/21 Time of Service: 03:40 Subjective Patient was transported to for MBS this date but due to technical difficulties the study was unable to be completed. As such, clinician returned to patient's bedside later this afternoon in order to assess PO trials. Over the weekend, RT reported suctioning productive of food particles. Patient was placed NPO status until swallow study could be performed. Per MD this date, placed patient on puree/thickened liquids for tonight. Objective/Assessment/Plan Objective Treatment Techniques & Outcomes: Correction Goals: 1. Patient will improve communication ability to moderate-severe deficit with provided supports/cueing in context of expressive aphasia in order to enhance patient decision making and reduce overall patient frustration/caregiver burden upon discharge. 2. Patient will demonstrate tolerance of least restrictive diet while on unit in order to maintain quality of life. Short Term Goals: 1.1 The patient will repeat functional C-V and C-V-C combinations at 60% accuracy given maximum verbal/visual cues. NOT ADDRESSED THIS DATE. Spontaneous productions this date included No x3, I will 1.2 The patient will initiate use of visual AAC support in 60% of opportunities given maximum visual/verbal cues from clinician/caregiver(s). NOT ADDRESSED THIS DATE: 1.3 Staff/caregiver(s) will demonstrate comprehension and appropriate application of both swallowing and communication supports/strategies to promote overall patient wellbeing and participation in decision-making upon discharge. IN PROGRESS: Swallowing: Provided education to RN, patient re: appropriate level of assist, diet texture modification, oral care procedures, and safe swallow strategies as outlined below, with rationale as relates to patient-specific deficits (e.g., R side weakness/reduced sensation). 2.1 Patient will demonstrate tolerance of Level 0 - thin liquids and 6 - soft/bite sized solids w negative overt s/sx of aspiration in 90% of opportunities given minimal verbal cues for use of safe swallowing strategies as appropriate in order to increase ability to consume least restrictive diet while on unit. IN PROGRESS: RESPIRATORY STATUS: Baseline wheezy/congested breathing noises - MILD when lying down. When patient was seated upright at side of bed, this resolved. Pt was UNABLE to produce volitional cough or throat clear this date. Self-feeding status: Independent using spoon and straw. (improved over previous session 03/16) Food items tested: [ ] None. Further swallow assessment not warranted at this time. [ ] Ice: [ ] IDDSI 0: [X] IDDSI 1: Mildly (nectar) thickened liquid via straw [ ] IDDSI 2: [ ] IDDSI 3: [X] IDDSI 4: Pudding [ ] IDDSI 5: [ ] IDDSI 6: [ ] IDDSI 7: [ ] Pill/tablet: Oral phase: [ ] WFL [ ] Leakage from mouth - puree, thin liquid [ ] Difficulty with bolus manipulation [ ] Difficulty with a-p transport [X] Difficulty chewing (2/2 edentulousness) [X] Pocketing (Right sided) [X] Residue (R>L Pharyngeal phase: [ ] WFL [X] Delayed swallow initiation suspected [ ] Reduced hyolaryngeal elevation/excursion [X] Cough after swallow (delayed x1 with mild thick liquids) [ ] Voice change after swallow ? unable to assess 2/2 largely non-verbal [x] Throat clearing x1 after pudding successive trials [ ] Endorsed stasis Additional strategies trialed this date: (+) Cue to clear R sided stasis/pocketing (+/-) Cue to place food on L side of mouth (-) Cue to cough/clear throat (unable to coordinate volitional cough/throat clear) Patient/Caregiver/Staff Education: See goal #1.3 progress above. Assessment While patient does appear to show improvement with self-feeding, mild improvement with verbal expression, and improved baseline levels of congestion this date, PO trials of downgraded consistencies this date indicated patient remains at moderate risk of aspiration with Level 4 (puree) and Level 1 (Mild thickened liquids), especially in the context of impulsive feeding and inability to produce volitional throat clear. Recommend maintain current diet with 1:1 supervision to ensure small bite/sip size, load mouth on L side, and reminders to clear R side of mouth of pocketing stasis. STRICT ORAL CARE should be provided BEFORE AND AFTER all PO intake. If these precautions are unable to be met by patient/caregivers, consider NPO until MBS can be performed tomorrow. Maintain low threshold for discontinuing PO trials if wet/congested breathing or coughing occurs. Plan Plan: MBSS re-scheduled for 03/20/21. Recommendations Recommendations: Communication: - Utilize Y/N questions, options of 2 whenever possible, allow time for response as needed to enhance communicative participation - AAC board and/or booklet for expressive communication; may also utilize AAC board/booklet to enhance verbal understanding given lack of visual cues with masks - Patient is able to read simple/single words - use written cues for enhanced comprehension or to facilitate communication via AAC PRN Instrumentation: MBS Diet Texture Modification(s): IDDSI Level(s) 4-Puree, 2-Mildly Thick Liquids Medication Intake: Whole with 4-puree Alter medications only as advised by MD or Pharmacist RISK MANAGEMENT: - Assist for thorough oral care Oral hygiene BID/2x per day and before/after PO intake using friction with toothbrush/suction sponge on all oral structures as tolerated HOB upright as tolerated; upright for all PO intake. Encourage physical mobility as tolerated. Level of Assistance/Supervision: 1:1 assist / supervision PO intake only when awake/alert Strategies/Adaptations/Assistive Equipment: Provide verbal and/or visual cues to use recommended strategies - Small sips, clear throat+re-swallow (continue to monitor for overt s.s aspiration, trial adaptations as needed) - Chew& load mouth on LEFT side of mouth, provide reminders/cues to clear R sided pocketing/stasis - Small sips and bites when eating - Slow rate of intake - Alternate intake of liquids and solids Posture/Positioning Needs: Maintain upright position at least 30 minutes after meals, Avoid meals/snacks 2-3 hours prior to reclining/sleeping, Sleep with head of bed elevated to reduce likelihood of nocturnal reflux Total Time Spent: 30 min Treatment code: 95650 Dysphagia treatment Coding
[2021-03-19 19:19] VITALS: BP 111/74; PULSE 92; RESP 16; TEMP 36.4; O2SAT 96
[2021-03-19] MEDS: Albuterol HFA 8 GM 60 PUFF INH IH (19:28)
[2021-03-19] MEDS: Lachydrin 12% LOTION 225 GM BTL TP (19:28)
[2021-03-20 00:06] VITALS: BP 112/68; PULSE 82; RESP 20; TEMP 36.1; O2SAT 96
[2021-03-20 03:32] VITALS: BP 115/68; PULSE 82; RESP 20; TEMP 36.2; O2SAT 96
[2021-03-20] MEDS: Albuterol HFA 8 GM 60 PUFF INH IH ×2 (07:40→22:33)
[2021-03-20 07:43] LABS: Absolute Basophil Count 0.07 10^3/uL (0.0-0.2); Absolute Eosinophil Count 0.22 10^3/uL (0.0-0.7); Absolute Lymphocyte Count 1.19 10^3/uL (1.2-3.4); Absolute Monocyte Count 0.53 10^3/uL (0.1-0.8); Absolute Neutrophil Count 3.21 10^3/uL (1.2-6.7); Basophils % 1.3; Eosinophils % 4.2; HGB 13.6 g/dL (13.5-17.5); Lymphocytes % 22.8; MCH 27.9 pg (27.0-33.0); MCHC 32.4 % (32.0-36.0); MCV 86.2 fL (80-95); Monocytes % 10.2; Neutrophils % 61.5; Nucleated RBC 0 %; Platelet Count 198 10^3/uL (130-400); RBC 4.87 10^6/uL (4.36-5.78); RDW 14.1 % (11.8-14.1); RDW-SD 45.1 fL; WBC 5.22 10^3/uL (4.4-10.8)
[2021-03-20] MEDS: Clopidogrel 75 MG TAB PO (07:56)
[2021-03-20] MEDS: Metoprolol 12.5 MG TAB PO ×2 (07:56→22:29)
[2021-03-20] MEDS: Fluticasone NASAL SPRAY 16 GM BTL NS (07:56)
[2021-03-20] MEDS: Apixaban 5 MG TAB PO ×2 (07:56→22:29)
[2021-03-20] MEDS: Lachydrin 12% LOTION 225 GM BTL TP ×2 (07:56→22:36)
[2021-03-20] MEDS: Normal Saline Flush 10 ML SYR IVP ×2 (07:57→10:27)
[2021-03-20 08:00] LABS: Anion Gap 6.8 mmol/L (3-11); BUN 16 mg/dL (7-18); CO2 28.2 mmol/L (21.0-32.0); CREATININE 0.9 mg/dL (0.70-1.30); Calcium 8.7 mg/dL (8.5-10.1); Chloride 102 mmol/L (98-107); Glucose 92 mg/dL (74-106); Magnesium 2.1 mg/dL (1.8-2.4); Potassium 4.1 mmol/L (3.5-5.1); Sodium 137 mmol/L (136-145)
[2021-03-20 08:40] VITALS: BP 108/75; PULSE 104; RESP 18; TEMP 36.8; O2SAT 95
--- NOTE | 2021-03-20 09:04 | OT.INTREAT ---
Date of service: 03/20/21 Time of Service: 08:45 Occupational Therapy Notes Occupational Therapy Inpatient Treatment Note Date: 03/20/21 PRECAUTIONS: Fall, standard, DNR SUBJECTIVE: Pt was sitting in chair when OT arrived, he is agreeable to OT session. OBJECTIVE: PAIN:0/10 FUNCTIONAL MOBILITY Rolling L/R: (I) Supine-sit: Mod vc and min (A) Sit-stand: CGA Stand-sit: CGA Bed-Chair: CGA with FWW BATHING: sitting in chair with max (A) Set up/clean up Upper Body: (I) face, (B) UE, max (A) back, max (A) hair Lower Body: (I) (B) LE, (I) with candy area although only fair-good technique at this time and vc throughout, pt performed this in the standing position. DRESSING: sitting in chair min vc throughout Upper Extremity: (I) don and doffing [facility] gown Lower Extremity: Min (A) don and doffing (B) socks with min vc GROOMING: sitting in chair (I) brushing his hair ASSESSMENT/PLAN: Pt is receptive to performance of ADLs and continues to improve. He requires vc and set up (A) at this time. TREATMENT CODES/TIME: 33896, 15 minutes (08:45) [facility]IVID[facility]
[2021-03-20] MEDS: ROSUVASTATIN 20 MG TAB 40 MG PO (09:59)
[2021-03-20] MEDS: Pantoprazole 40 MG VIAL IVP (10:27)
--- NOTE | 2021-03-20 11:06 | PT.INTREAT ---
Date of service: 03/20/21 Time of Service: 11:06 PT Notes Visit Reasons: Expressive Aphasia,Altered Mental Status Inpatient Physical Therapy Treatment Note [facility] Date: 03/19/2021 PRECAUTIONS: R hemineglect. Broca's aphasia. Fall risk. SUBJECTIVE: Continues to be pleasant and very motivated to participate in therapy. Happy about being able to start ambulation without an assistive device this morning. No non-verbal/verbal expression of pain throughout session. OBJECTIVE: PAIN: Denies BED MOBILITY/TRANSFERS Sit-supine: Independent with HOB flat Sit-stand: Supervision Stand-sit: Supervision GAIT Assistive Device: No assistive device Weight bearing: Full Assist: Standby assist Distance: 100 feet + 100 feet Deviation: No wheelchair follow needed. Continues to demonstrate mild hemiplegic gait with increased stance time on the right LE. Moderate cues given for improved environmental scanning to manage R hemineglect and visual impairment. Increased R stance time. No LOB but with mild path deviation with head turning. Balance: Static sitting: Normal Dynamic sitting: Good Static standing: Good Dynamic standing: Good THERA ACT: Facilitated functional activity of unassisted ambulation while inside parallel bars transferring weighted objects from higher surface from one side of the parallel bars onto a lower surface to another set of the parallel bars with simultaneous work on increasing right forward reach, right sideward reach, trunk and head rotation, dynamic standing balance and tolerance, B LE strengthening using 2.5 ankle weights, and right LE strengthening using varied weights. Also worked on increasing depth perception and kinesthetic awareness in B LE and right UE as well as posterior balance reactions/awareness while performing backing up activities inside parallel bars without UE support with 2.5 ankle weights. ASSESSMENT: Progressing along excellently. Increasing strength to R LE and R UE. Improving environmental scanning skills. Increasing independence with mobility performance. PLAN: Progress mobility level, balance skills, and strength as tolerated. DISCHARGE RECOMMENDATIONS: Short-term rehab to facilitate mobility independence and then OP PT services to maximize recovery/functional outcomes. May need SPC for outdoor ambulation. TREATMENT CODE/TIME: 59246 x 43 minutes beginning at 11:06 AM.
[2021-03-20 11:24] LABS: Source Nasal/Nares
--- NOTE | 2021-03-20 12:20 | W.PM.PROGNOT ---
Date of Service Date of service: 03/20/21 Time of Service: 12:20 Assessment and Plan Assessment and plan (1) Dysphagia: Status: Acute Assessment and plan: had required suctioning, pureed and thickened fluids pending modified barium swallow exam, speech bedside eval agrees with modifications for now. (2) CVA (cerebral vascular accident): Status: Acute Assessment and plan: already on plavix, allergic to asa. 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 His echo last admission December 2020 showed EF of 55%. No thrombus noted. Repeat Echo for Friday anticoagulation started on eliquis this will be in addition to plavix as it appears embolic, neuro consult for Friday Continue PT/OT MRI shows: IMPRESSION: Compared to the prior MRI scan of 01/15/2021 there is again noted prominent chronic ischemic white matter changes. However, on the present study there are new ischemic foci evident in the left periventricular white matter and right supra ventricular white matter, both exhibiting restricted diffusion.. There is no evidence of hemorrhage at these levels. The previously described acute ischemic event in the right anterior tariq seen on the MRI scan of December 2020 no longer exhibits restricted diffusion. MRA: IMPRESSION: 1. Patent intracranial internal carotid arteries. Patent middle cerebral arteries. Patent anterior cerebral arteries. 2. 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 3. No aneurysms evident. 4. No significant venous sinus thrombosis evident. See separate brain MRI report dictated today. This reveals a new bilateral significant findings in the periventricular white matter consistent with acute bilateral ischemic events, possibly embolic. Qualifiers: CVA mechanism: unspecified Qualified Code(s): I63.9 - Cerebral infarction, unspecified (3) Rapid atrial fibrillation: Status: Resolved Assessment and plan: rate is controlled. stable on lopressor 12.5 mg po bid. now fully anticoagated on eliquis. limited echo pending. (4) HTN (hypertension): Status: Chronic Assessment and plan: hold any home antihypertensives PT bp has been soft. Will restart antihypertensives when necessary Qualifiers: Hypertension type: primary hypertension Qualified Code(s): I10 - Essential (primary) hypertension (5) DVT prophylaxis: Status: Acute Assessment and plan: fully anticoagulated on eliquis (6) Discharge planning issues: Status: Acute Assessment and plan: recommendations for acute rehab which he is agreeable to. case management placing referrals for acute rehab. discharge discussed with Dr Ching Subjective Subjective Patient reports: no new complaints and afebrile; denies shortness of breath Interval history since last seen: ambulating in [place] with PT. some ongoing swallowing difficulties. awaiting swallow study and neurology evaluation Exam Const General: cooperative, comfortable, no acute distress and frail appearing Nutritional Appearance: average body habitus Orientation: alert, awake and other HENMT Head: normal to inspection, normocephalic and atraumatic Mouth: oral mucosae normal Resp Effort & Inspection: normal respiratory effort Auscultation: clear to auscultation bilaterally Cardio Rate: tachycardic Rhythm: abnormal rhythm (controlled to uncontrolled afib) irregularly irregular GI Inspection: normal to inspection Palpation: soft Auscultation: normal bowel sounds Skin General skin exam: no rashes or lesions noted Neuro General: patient alert, patient awake and moves all extremities Speech: expressive aphasia Motor: muscle tone normal throughout and strength abnormal (right ataxia) Extrem General: normal to inspection, full ROM and no pedal edema Objective Last Vital Signs Temp 36.8 C 03/20/21 08:40 Pulse 104 H 03/20/21 08:40 Resp 18 03/20/21 08:40 BP 108/75 03/20/21 08:40 Pulse Ox 95 03/20/21 08:40 Laboratory Results - last 24 hr 03/20/21 03/20/21 03/20/21 06:39 06:39 10:00 WBC 5.22 RBC 4.87 Hgb 13.6 Hct 42.0 MCV 86.2 MCH 27.9 MCHC 32.4 RDW 14.1 Plt Count 198 MPV 13.0 H Immature Gran % 0.0 Neutrophils % 61.5 Lymphocytes % 22.8 Monocytes % 10.2 Eosinophils % 4.2 Basophils % 1.3 Nucleated RBC % 0 Absolute Neutrophils 3.21 Absolute Lymphocytes 1.19 L Absolute Monocytes 0.53 Absolute Eosinophils 0.22 Absolute Basophils 0.07 Sodium 137 Potassium 4.1 Chloride 102 Carbon Dioxide 28.2 Anion Gap 6.8 BUN 16 Creatinine 0.9 Estimated GFR/1.73 m2 >= 60.00 Glucose 92 Calcium 8.7 Magnesium 2.1 COVID-19 Source Nasal/Nares
[2021-03-20 12:49] LABS: COVID-19 PCR Negative (Negative)
[2021-03-20] MEDS: Barium Sulfate 700 MG TAB PO (14:14)
[2021-03-20] MEDS: Barium Sulfate Oral Paste 40% W/V 230 ML TUBE PO ×3 (14:17→14:20)
[2021-03-20] MEDS: Barium Sulfate 81% w/w for Oral Suspension 148 GM BTL PO (14:18)
--- NOTE | 2021-03-20 14:18 | DI.RAD_ITS ---
Exam(s) RF MODIFIED SPEECH BA SWALLOW TECHNIQUE: Modified barium swallow was performed in conjunction with speech pathology. Multiple cons istencies were administered. CONTRAST MATERIAL: Oral barium contrast was administered. COMPARISON: No exams were available for comparison FINDINGS: Note that this is not a dedicated esophagram, distal esophagus not evaluated. Aspiration was observ ed on 1 thin consistency swallow. No aspiration observed with the thicker consistencies. There is s ignificant delay in oral transit. There was pooling in the vallecular and piriform sinuses, greater on the right. speech pathology report to follow. . . . IMPRESSION: Sluggish oral transit. Aspiration with thin barium. Pooling in the vallecula appear form sinuses, g reater on the right. Fluoro time 3.09 seconds RADIATION DOSE DELIVERED: nimco Palmer=15.7 mGy
--- NOTE | 2021-03-20 14:19 | PDOC.CMPRO ---
- If Service Date Differs Date of service: 03/20/21 Time of Service: 14:19 Care Management Progress Note S/O: Sg was sitting up in his chair when CM met with him. CM discussed his discharge plan, which will likely be for him to go to short term rehab prior to returning home. CM communicated with [facility] multiple times, sending updated clinicals, and talking with the family regarding disposition after rehab. Per Karin, they are looking into hiring caregivers at home, but family is willing to wrap him in support until this is all set up, once he has completed his short term rehab. Sg is scheduled for a modified barium swallow and a neuro consult this afternoon. JESUSITA will send these results to [facility], who is considering him for admission for tomorrow. CM will continue to follow. A: Sg is an 80 year old male admitted to [facility] 03/14/21 Expressive aphasia, AMS P: [facility]ed to [facility], per family wishes. [facility] is considering him for admission. He will likely transport via w/c van vs EMS, depending on the accepting facility's guidelines. CM continues to follow.
--- NOTE | 2021-03-20 15:22 | ST.MBS_ITS ---
Date of Service Date of service: 03/20/21 Time of Service: 13:30 Modified Barium Swallow Study Findings: SUBJECTIVE: Patient was transported by RN to radiology suite where the study was performed. Patient was transferred with assistance to bench and sat upright for the study. After the study he was transported back to his room where WORKERS COMPENSATION CLAIMS ASSISTANT followed up to provide written and verbal education regarding results and recommendations. ----- IMPRESSIONS: Moderate-severe oropharyngeal dysphagia, likely acute; primarily due to reduced lingual and pharyngeal strength and motility, delayed swallow onset in setting of L CVA. Patient presents with SILENT aspiration of thin liquids even in small, controlled bolus. Residue present diffusely in oral and pharyngeal spaces which poses additional threat of post-prandial aspiration, R>L consistent with L CVA presentation. Swallow safety is impaired, swallow efficiency is impaired. Patient appears to be at moderate to high risk for potential aspiration PNA, pulmonary compromise and low-mod risk for dehydration>malnutrition. Diet modification is indicated as below. Swallow prognosis is good-fair given severity, time since onset, age and pending patient/caregiver training in risk management as outlined. Patient appears to be a good candidate for behavioral swallow rehabilitation. Suspect patient would be appropriate for safe deglutition of soft/easy to chew or bite-size solids, but expresses preference for pureed solids in setting of edentulousness and dental pain. Appropriate for further WORKERS COMPENSATION CLAIMS ASSISTANT services while on unit as well as at discharge location. PLAN: WORKERS COMPENSATION CLAIMS ASSISTANT to continue to follow while on unit. Diet recommendation: IDDSI Level 4-Pureed Solids 2-Mildly Thick Liquids ([place]) Please see further details at www.iddsi.org Risk Management: Behavioral reflux precautions, including upright position during + 90 mins after meals. Small bites, approx [id number] Small sips, approx 10 mL Encourage avoidance of straws Alternate solids/liquids as able Multiple swallows per bolus] ([2 total]) to encourage clearance of pharyngeal stasis/residue Turn head to RIGHT side when swallowing pureed solids to minimize pharyngeal residue Place food on LEFT side of mouth and check Right side for pocketing Control risk factors for aspiration pneumonia via (a) thorough oral hygiene & (b) maintaining physical mobility as tolerated Specialist referrals: n/a Ancillary tests: In consideration of SILENT aspiration, patient will benefit from repeat MBSS as an outpatient or at discharge facility during subacute phase of recovery to monitor for tolerance/safety of thin liquids. ------- OBJECTIVE: Videofluoroscopic Swallow Evaluation (VFSE/MBSS) was conducted in the lateral and [id number] projections by Speech-Language Pathologist, in collaboration with Radiologist Kourtney Nash, to evaluate oropharyngeal swallow function. Anatomic view under fluoroscopy: WFL PO barium contrast trials: Oral barium water soluble contrast was administered as follows: IDDSI Level 0 Varibar thin liquid (40% w/v) ? ? tsp x1, whole tsp x1 (5ml) IDDSI Level 2 Varibar nectar thick/mildly thick liquid (40% w/v) (tsp x2, cup sip x5 IDDSI Level 4 Varibar pudding/pureed/extremely thick (40% w/v) x3 via tsp IDDSI Level 7 Regular Solid: 1/4 allison cracker coated in 3 mL Varibar pudding; 13 mm barium tablet in 5mL Varibar pudding PHYSIOLOGIC FINDINGS Oral Phase 1 Lip Closure: [0-No labial escape] [1-Interlabial escape; no progression to anterior lip] [2-Escape from interlabial space or lateral juncture; no extension beyond marlene border] [3-Escape progressing to mid-chin] [4-Escape beyond mid-chin] 2 Tongue Control: [0- Cohesive bolus between tongue to palatal seal] [1- Escape to lateral buccal cavity/floor of mouth ] [2- Posterior escape of less than half of bolus] [3- Posterior escape of greater than half of bolus] 3 Bolus Preparation/Mastication: [0- Timely and efficient chewing/mashing] [1- Slowed/prolonged chewing/mashing with complete recollection] [2- Disorganized chewing/mashing with solid pieces of bolus unchewed] [3- Minimal chewing/mashing with majority of bolus unchewed] 4 Bolus Transport/Lingual Motion: [0- Brisk tongue motion] [1- Delayed initiation of tongue motion] [2- Slowed tongue motion; 2 or less AP movements] [3- Repetitive/disorganized tongue motion] [4- Minimal to no tongue motion] 5 Oral residue: [0- Complete oral clearance] [1- Trace residue lining oral structures] [2- Residue collection on oral structures] [3- Majority of bolus remaining; >50% of bolus] [4- Minimal to no clearance] Location: Tongue, floor of mouth, palate, lateral sulci] 6 Initiation of pharyngeal swallow: [0- Bolus head at posterior angle of ramus; first hyoid excursion] [1- Bolus head in valleculae] (MILDLY THICK LIQUID and SOLID BOLUSES) [2- Bolus head at posterior laryngeal surface of epiglottis] [3- Bolus head in pyriform sinus] (THIN LIQUID) [4- No visible initiation at any location] Pharyngeal Phase 7 Velar Elevation: [0- No bolus between soft palate and pharyngeal wall ] [1- Trace column of contrast or air between soft palate and pharyngeal wall] [2- Escape to nasopharynx] [3- Escape to nasal cavity] [4- Escape to nostril with/without emission] 8 Laryngeal Elevation: [0- Complete superior movement of thyroid cartilage with complete approximation of arytenoids to epiglottic petiole ] [1- Partial superior movement of thyroid cartilage with partial approximation of arytenoids to epiglottic petiole] [2- Minimal superior movement of thyroid cartilage with minimal approximation of arytenoids to epiglottic petiole] [3- No superior movement of thyroid cartilage] 9 Anterior Hyoid Excursion: [0- Complete anterior movement] [1- Partial anterior movement] [2- No anterior movement] 10 Epiglottic Movement: [0- Complete inversion] [1- Partial inversion] [2- Absent/No inversion] 11 Laryngeal Vestibule Closure: [0- Complete; no air/contrast in laryngeal vestibule] [1- Incomplete; narrow column of air/contrast in laryngeal vestibule] [2- None; wide column of air/contrast in laryngeal vestibule] Penetration [not observed] occurs prior to, during, after initial swallow onset from [current bolus, pharyngeal stasis] 12 Pharyngeal Stripping Wave: [0- Present; complete] [1- Present; diminished] [2- Absent] 13 Pharyngeal Contraction: [0- Complete] [1- Incomplete; pseudodiverticulae] [2- Unilateral bulging] [3- Bilateral bulging] [DNT; lack of AP view] 14 PES/UES Opening: [0- Full distension and full duration; no obstruction of flow] [1- Partial distension and partial duration; partial obstruction of flow] [2- Minimal distension and minimal duration; marked obstruction of flow] [3- No distension with total obstruction of flow] 15 Tongue Base Retraction: [0- No contrast between tongue base and posterior pharyngeal wall] [1- Trace column of contrast between tongue base and posterior pharyngeal wall] [2- Narrow column of contrast between tongue base and posterior pharyngeal wall] [3- Wide column of contrast between tongue base and posterior pharyngeal wall ] [4- No visible posterior motion of tongue base] 16 Pharyngeal residue: [0-Complete pharyngeal clearance] [1- Trace residue within or on pharyngeal structures] [2- Collection of residue within or on pharyngeal structures ] [3- Majority of residue within or on pharyngeal structures ] [4- Minimal to no pharyngel clearance] Location: [N/A] [Diffuse] [Vallecullae & aryeppiglottic folds > Pyriform sinus, tongue base, R>L, and Pudding>Mildly thick liquid>Solid bolus] Noting barium tablet suspension after the swallow at level of valleculae/aryeppiglottic folds, requiring multiple wash/reswallow to clear. Sherita Pharyngeal Residue Severity Rating Scale (YPRS) (Gaetano et al, 2015) Vallecula Residue Severity [I None 0% No residue II Trace 1-5% Trace coating of the mucosa III Mild 5-25% Epiglottic ligament visible IV Moderate 25-50% Epiglottic ligament covered V Severe >50% Filled to epiglottic rim] Pyriform Sinus Residue Severity [I None 0% No residue III Mild 5-25% Up wall to quarter full IV Moderate 25-50% Up wall to half full V Severe >50% Filled to aryepiglottic fold] Esophageal Phase UNABLE TO FULLY VISUALIZE distal segment as patient required to be seated at all times. Results indicate clearance from the proximal segment only. 17 Esophageal Clearance Upright Position: [0-Complete clearance; esophageal coating ] [1- Esophageal retention] [2- Esophageal retention with retrograde flow below pharyngoesophageal segment/(PES/UES)] [3- Esophageal retention with retrograde flow through pharyngoesophageal segment/(PES/UES)] [4- Minimal to no esophageal clearance] [DNT; lack of AP view] NOTE: This study was performed for interpretation only of the oropharyngeal and pharyngoesophageal domains of swallowing. It is not intended to diagnose any other radiologic abnormalities or substitute for a formal esophagram study. Overall 8-Point Penetration-Aspiration Scale (PAS) (Nelson, et al, 1996) 1 - No material enters the airway. 2 - Material enters the airway, remains above the vocal folds, and is ejected from the airway. 3 - Material enters the airway, remains above the vocal folds, and is not ejected from the airway. 4 - Material enters the airway, contacts the vocal folds, and is ejected from the airway. 5 - Material enters the airway, contacts the vocal folds, and is not ejected from the airway. 6 - Material enters the airway, passes below the vocal folds, and is ejected into the larynx or out of the airway. 7 - Material enters the airway, passes below the vocal folds, and is not ejected from the trachea despite effort. 8 - Material enters the airway, passes below the vocal folds, and no effort is made to eject. Clinical Indicator(s) of Prandial/Postprandial Aspiration: [N/A] [Cough] [Throat Clear] [Wet vocal quality] [Postural change: ] [Facial Grimace] [Other: ] Trialed Compensatory Swallow Strategies & Outcome: Postures: Head Turn/Rotation to R - [successful to reduce R vallecular residue of pudding) Maneuvers 3-second Preparatory Set - unsuccessful for thin liquids Volitional Cough ? unable to determine if cough cleared penetrant of airway Secondary saliva swallow x1 - successful to reduce pharyngeal and oral residue Bolus Modifications Delivery/Alternating Consistencies - Wash with Mildly/[place]imer thick liquid [partially successful Reduced Volume - successful to reduce residue Reduced Rate of Intake - successful to reduce residue Increased Viscosity ? successful to prevent aspiration Dysphagia Outcome and Severity Scale (BHAVNA) [LEVEL 7 - Full PO: normal diet - Normal in all situations LEVEL 6 - Full PO: normal diet - Within functional limits/modified independence LEVEL 5 - Full PO: modified diet and/or independence - Mild dysphagia; Distant supervision, may need 1 diet consistency restricted LEVEL 4 - Full PO: modified diet and/or independence - Mild-moderate dysphagia; Intermittent supervision/cueing, 1 or 2 consistencies restricted LEVEL 3 - Full PO: modified diet and/or independence - Moderate dysphagia; Total assist, supervision, or strategies 2 or more diet consistencies restricted LEVEL 2 - Nonoral nutrition necessary - Moderate-severe dysphagia; Maximum assistance or use of strategies with partial PO only (tolerates at least 1 consistency safely with total use of strategies) LEVEL 1 - Nonoral nutrition necessary - Severe dysphagia; NPO, unable to tolerate any PO safely] Lizbet Pappas MS [facility]-WORKERS COMPENSATION CLAIMS ASSISTANT Speech Language Pathologist [phone] Total time spent: 60 minutes Treatment Code: 10648 (Video Fluoroscopic Swallow Study by WORKERS COMPENSATION CLAIMS ASSISTANT/ Modified Barium Swallow Study with WORKERS COMPENSATION CLAIMS ASSISTANT) Coding
[2021-03-20 15:24] VITALS: BP 118/65; PULSE 94; RESP 15; TEMP 36.5; O2SAT 96
--- NOTE | 2021-03-20 15:53 | W.NEUROCONSU ---
Date of service: 03/20/21 Time of Service: 15:53 Assessment and Plan Assessment and plan (1) CVA (cerebral vascular accident): Status: Acute Qualifiers: CVA mechanism: unspecified Qualified Code(s): I63.9 - Cerebral infarction, unspecified (2) Dysphagia: Status: Acute (3) Atrial fibrillation: Status: Inactive (4) Expressive aphasia: Status: Acute Assessment and plan: #1. Acute ischemic stroke manifested by expressive aphasia and acute on chronic dysarthria and dysphagia; secondary to atrial fibrillation; with a prior history of ischemic stroke due to small vessel disease. Agree with addition of Eliquis for secondary stroke prevention. Assuming he was compliant with clopidgrel prior to December 2020 ischemic stroke, could consider switching clopidogrel to ticagrelor instead. Continue statin for secondary stroke prevention. Continue PT and ST. He should follow-up in neurology clinic in 4-6 weeks. History of Present Illness History of Present Illness Chief Complaint: stroke Narrative: Handedness: right. HPI: Mr. Benavidez is an 80 year-old man with hypertension, hyperlipidemia, ventricular tachycardia, aortic stenosis, hyponatremia, previous traumatic subarachnoid hemorrhage, previous ischemic stroke (Apr 2017) and remote alcohol abuse. I previously met Mr. Benavidez in November 2017 following an ischemic stroke in April 2017 manifested by right hemiparesis and dysarthria, with residual dysarthria. He underwent the work-up as below. He was started on clopidogrel at that time for secondary stroke prevention - has documented allergy to aspirin (hives). At that time, he was noted to have pseudobulbar affect vs depression. He was admitted to [facility] 01/14/21-01/15/21 after presented with acute on chronic dysarthria and confusion. He was still reportedly taking clopidogrel 75mg daily upon admission. The notes indicate that he also had a known diagnosis of atrial fibrillation, as supported by EKG, but unclear when this diagnosis was made and why he was not on anticoagulation. Was this in fact a new diagnosis? Regardless, he was found to have a right pontine infarct which would not have been embolic. His medications were not changed and he was discharged to home near baseline per notes and family. He was re-admitted to [facility] on 03/14/21 this time with significant speech changes - aphasia - worsening dysarthria, dysphagia, and altered mental status. He had a brief episode of RVR in the hospital. He has since undergone the work-up as below. He has been started on Eliquis 5mg BID in addition to clopidogrel and statin. Evaluated by ST with modified barium swallow performed today - recommended pureed solids and mildly thick liquids (Garvin). In September 2018, he was admitted to [facility] with left leg weakness. MRI brain was negative. Prior to December he was living alone with mild memory impairment - repeating stories frequently and within the same conversation. Since December, one of his grandchildren has been staying with him. He has had a slow decline in his balance over time, but no falls that his son Tavo was aware of. Work-up (): -CT head: Significant atrophy and chronic white matter changes with old bilateral basal ganglia infarcts. -CTA head and neck: Calcifications at both carotid bulbs with no significant stenosis. -TTE: EF of 50%, mild aortic stenosis and regurgitation, no wall motion abnormalities. PFO study was not performed. LA was of normal size. -Holter ?2 weeks: 11 bursts of ventricular tachycardia, lots of ectopy, no A. fib. -LDL 109. -Holter x 2 weeks (November 2017): no afib. Current Work-up: -CTH (01/14/21): no acute findings. Moderate-severe generalized atrophy and chronic vascular changes. I reviewed these images personally and this is my personal interpretation. -CTA head/neck (01/14/21): diffuse intracranial atherosclerosis with L MATERIAL LIAISON stenosis. Enlarged R jugular. I reviewed these images personally and this is my personal interpretation. -MRI brain (01/14/21): acute right anterior pontine ischemic stroke. Old small L periventricular infarct with a few scattered old microhemorrhages - all located in the cortex. Severe chronic vascular disease. I reviewed these images personally and this is my personal interpretation. -TTE (01/15/21): EF 55%, no wall motion abnormalities. LA mildly dilated. -CTH (03/14/21): unchanged from above. I reviewed these images personally and this is my personal interpretation. -MRI brain (03/15/21): New acute ischemic infarcts in L periventricular frontal lobe and right frontal cortex. Since last MRI there are 2 new old infarts in the right periventricular burch matter. No changes in old microhemorrhages. Severe chronic vascular disease. I reviewed these images personally and this is my personal interpretation. MRA head (03/15/21): unchanged from CTA as above. I reviewed these images personally and this is my personal interpretation. -Labs (03/15/21): A1c 5.7, LDL 52 Consults Requesting physician: Tsering Ching Review of Systems All systems reviewed & are unremarkable except as noted in HPI and below PFSH Medical History (Updated 03/20/21 @ 20:27 by Bere Mane MD) Atrial fibrillation CVA (cerebral vascular accident) HTN (hypertension) Surgical History complex laceration of left upper extremity (01/19/16) Family History Other Family history unobtainable due to patient's condition Social History Smoking/Tobacco Use Status: Never Smoking risk assessment performed?: Yes Alcohol Intake: former Drug use: Never Details: no alcohol for 30 yrs Do you feel safe at home: Yes Do you feel safe in your relationship?: Yes Visit Medication and Allergies Active Medications Generic Name Dose Route Start Last Admin Trade Name Freq PRN Reason Stop Dose Admin Acetaminophen 325 - 650 mg 03/14/21 20:13 Acetaminophen 325 Mg Tab PO Q4H PRN PRN Al Hydrox/Mg Hydrox/Simethicone 30 ml 03/14/21 20:13 03/18/21 18:07 Mylanta Suspension 30 Ml Cup PO 30 ml Q2H PRN PRN Administration Albuterol Sulfate 2 puff 03/15/21 08:30 03/20/21 07:40 Albuterol Hfa 8 Gm 60 Puff Inh IH 2 puff BID ALY Administration Albuterol/Ipratropium 3 ml 03/14/21 20:18 03/15/21 15:26 Albuterol/Ipratropium 3 Ml Upd Vial IH 3 ml Q6H PRN PRN Administration Ammonium Lactate 0 gm 03/15/21 08:30 03/20/21 07:56 Lachydrin 12% Lotion 225 Gm Btl TP 1 applic BID ALY Administration Apixaban 5 mg 03/15/21 20:00 03/20/21 07:56 Apixaban 5 Mg Tab PO 5 mg BID ALY Administration Barium Sulfate 700 mg 03/20/21 14:15 03/20/21 14:14 Barium Sulfate 700 Mg Tab PO 04/19/21 23:59 700 mg DIRECTED ALY Administration Barium Sulfate 230 ml 03/20/21 14:30 03/20/21 14:20 Barium Sulfate Oral Paste 40% W/V 230 Ml Tube PO 04/19/21 23:59 90 ml DIRECTED ALY Administration Barium Sulfate 148 gm 03/20/21 14:30 03/20/21 14:18 Barium Sulfate 81% W/W For Oral Suspension 148 Gm Btl PO 04/19/21 23:59 10 gm DIRECTED ALY Administration Clopidogrel Bisulfate 75 mg 03/15/21 08:30 03/20/21 07:56 Clopidogrel 75 Mg Tab PO 75 mg DAILY ALY Administration Device 1 each 03/14/21 21:00 Inhaler, Assist Device DIRECTED ALY Dimethicone/Zinc Oxide 0 gm 03/14/21 20:13 Tasha Protect Cream 142 Gm Tube TP PRN PRN Docusate Sodium 100 mg 03/14/21 20:13 Docusate Sodium 100 Mg Cap PO TID PRN PRN Fluticasone Propionate 16 gm 03/17/21 08:30 03/20/21 07:56 Fluticasone Nasal [place] 16 Gm Btl NS 1 sprays DAILY ALY Administration Sodium Chloride 500 mls @ 0 mls/hr 03/14/21 14:01 Saline 500ml Bag IV PRN PRN As Directed IV Miscellaneous Supplies 1 each 03/14/21 14:15 Iv Access IV DIRECTED ALY Magnesium Hydroxide 30 ml 03/14/21 20:13 Milk Of Magnesia 30 Ml Cup PO DAILY PRN PRN Melatonin 3 - 6 mg 03/19/21 23:45 03/20/21 00:35 Melatonin 3 Mg Tab PO Not Given HS ALY Metoprolol Tartrate 5 mg 03/14/21 21:42 Metoprolol 5 Mg/5 Ml Vial IVP Q6H PRN PRN Metoprolol Tartrate 12.5 mg 03/15/21 11:00 03/20/21 07:56 Metoprolol 12.5 Mg Tab PO 12.5 mg BID ALY Administration Pantoprazole Sodium 40 mg 03/19/21 10:00 03/20/21 10:27 Pantoprazole 40 Mg Vial IVP 40 mg Q24H ALY Administration Rosuvastatin Calcium 40 mg 03/20/21 08:30 03/20/21 09:59 Rosuvastatin 20 Mg Tab PO 40 mg DAILY ALY Administration Sodium Chloride 0 ml 03/14/21 14:01 03/20/21 10:27 Normal Saline Flush 10 Ml Syr IVP 20 ml PRN PRN Administration Allergies Penicillins Allergy (Severe, Unverified 01/14/21 14:11) per pcp office aspirin Adverse Reaction (Intermediate, Unverified 01/14/21 14:11) Skin Rash atenolol Adverse Reaction (Intermediate, Unverified 01/14/21 14:11) fatigue atorvastatin calcium [From Lipitor] Adverse Reaction (Mild, Unverified 01/14/21 14:11) itch Exam Narrative Exam Narrative: Physical Exam: Gen: Patient of apparent stated age, NAD, thin Head and face: no facial or cranial abnormalities, poor dentition Neck: Supple, no meningismus, no occipital tenderness CV:irregular Resp: CTA B/L Abd: soft, nontender, nondistended Ext: No edema. No clubbing or cyanosis. No bony deformity. Neuro Exam: Language: non-fluent; unable to name; able to repeat simple phrases and words; able to follow 2-step commands across the midline; Mental Status: unable to really test Speech: moderate dysarthria Cranial nerves: Funduscopy: not performed CN II: visual james intact CN III, IV, : extraocular movements intact, no nystagmus, pupils symmetric and reactive to light CN V: face sensation intact to PP??? CN VII: no facial asymmetry noted CN VIII: hearing intact bilaterally CN IX, X: palate rises symmetrically CN XI: trapezius/SCM 5/5 bilaterally CN XII: protrudes tongue symmetrically Sensory: tested PP, but unclear if intact or not due to communication difficulty Motor: bulk and tone intact. Fine motor movements intact bilaterally. No pronator drift. Strength 5/5 throughout including the deltoids, biceps, triceps, wrist extensors, hip flexors, knee flexors, knee extensors, ankle flexors, and ankle extensors. Reflexes: 2+ at the biceps, triceps, and brachioradialis; reduced in the LEs bilaterally; toes neutral/down going bilaterally; Coordination: FTN and HTS intact bilaterally Gait: not tested; Results Last Vital Signs Temp 97.7 F 03/20/21 15:24 Pulse 94 H 03/20/21 15:24 Resp 15 03/20/21 15:24 BP 118/65 03/20/21 15:24 Pulse Ox 96 03/20/21 15:24 Labs Result diagrams: 03/20/21 06:39 03/20/21 06:39 Labs: Laboratory Results - last 24 hr 03/20/21 03/20/21 03/20/21 06:39 06:39 10:00 WBC 5.22 RBC 4.87 Hgb 13.6 Hct 42.0 MCV 86.2 MCH 27.9 MCHC 32.4 RDW 14.1 Plt Count 198 MPV 13.0 H Immature Gran % 0.0 Neutrophils % 61.5 Lymphocytes % 22.8 Monocytes % 10.2 Eosinophils % 4.2 Basophils % 1.3 Nucleated RBC % 0 Absolute Neutrophils 3.21 Absolute Lymphocytes 1.19 L Absolute Monocytes 0.53 Absolute Eosinophils 0.22 Absolute Basophils 0.07 Sodium 137 Potassium 4.1 Chloride 102 Carbon Dioxide 28.2 Anion Gap 6.8 BUN 16 Creatinine 0.9 Estimated GFR/1.73 m2 >= 60.00 Glucose 92 Calcium 8.7 Magnesium 2.1 COVID-19 Source Nasal/Nares SARS-CoV-2 (PCR) Negative
[2021-03-20 19:10] VITALS: BP 106/73; PULSE 79; RESP 17; TEMP 37; O2SAT 96
[2021-03-20] MEDS: Melatonin 3 MG TAB PO (22:29)
[2021-03-20 23:25] VITALS: BP 120/76; PULSE 84; RESP 17; TEMP 35; O2SAT 98
[2021-03-21 03:03] VITALS: BP 140/94; PULSE 95; RESP 19; TEMP 36.9; O2SAT 95
[2021-03-21 08:20] VITALS: BP 130/62; PULSE 68; RESP 20; TEMP 36.4; O2SAT 97
[2021-03-21] MEDS: Albuterol HFA 8 GM 60 PUFF INH IH (08:32)
[2021-03-21] MEDS: Lachydrin 12% LOTION 225 GM BTL TP (08:50)
[2021-03-21] MEDS: Fluticasone NASAL SPRAY 16 GM BTL NS (08:50)
[2021-03-21] MEDS: ROSUVASTATIN 20 MG TAB 40 MG PO (09:02)
[2021-03-21] MEDS: Clopidogrel 75 MG TAB PO (09:02)
[2021-03-21] MEDS: Apixaban 5 MG TAB PO (09:02)
[2021-03-21] MEDS: Metoprolol 12.5 MG TAB PO (09:02)
--- NOTE | 2021-03-21 10:00 | OT.INTREAT ---
Date of service: 03/21/21 Time of Service: 07:40 Occupational Therapy Notes Occupational Therapy Inpatient Treatment Note Date: 03/21/21 PRECAUTIONS: Fall, standard, DNR SUBJECTIVE: Pt was sitting in bed when OT arrived, he is agreeable to OT session. OBJECTIVE: PAIN:0/10 FUNCTIONAL MOBILITY Rolling L/R: (I) Supine-sit: Mod vc and min (A) Sit-stand: CGA Stand-sit: CGA Bed-Chair: CGA with FWW BATHING: sitting in chair with max (A) Set up/clean up Upper Body: (I) face, (B) UE, max (A) back, mod (A) hair Lower Body: (I) (B) LE, (I) with candy area although only good technique at this time and vc throughout, pt performed this in the standing position. DRESSING: sitting in chair min vc throughout Upper Extremity: (I) don and doffing [facility] gown Lower Extremity: Min (A) don and doffing (B) socks GROOMING: sitting in chair (I) brushing his hair ASSESSMENT/PLAN: Pt is receptive to performance of ADLs and continues to improve. He requires vc and set up (A) at this time but is able to perform without breaks or hesitation. TREATMENT CODES/TIME: 55155, 20 minutes (07:40) NATIVIDAD Carpio[facility]
--- NOTE | 2021-03-21 10:19 | DSE_ITS ---
Date of service: 03/21/21 Time of Service: 10:19 DS: Diagnosis Discharge Diagnosis (1) CVA (cerebral vascular accident): Status: Acute (2) Dysphagia: Status: Acute (3) Atrial fibrillation: Status: Inactive (4) Expressive aphasia: Status: Acute Discharge Plan Disposition Patient Disposition: [facility] Condition: Improving Discharge Details Reason For Visit: Expressive Aphasia,Altered Mental Status Admit Date/Time: 03/14/21 14:01 Admit Provider: Montez Duncan Attending Provider: Montez Duncan Primary Care Provider: Kathy Cardoza Hospital Course Hospital Course: This is a 80 year old male with 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 His work up in the ED included labs which were unremarkable and a CT head that showed no acute findings. The next day, further work up revealed new embolic CVA by MRI. He had a brief episode of RVR in the hospital and received IV lopressor and was started on lopressor 12.5 mg PO bid with good effect, blood pressure and heart rate stable and has been controlled afib since. His amlodipine was discontinued as his blood pressures 120's. He has been started on Eliquis 5mg BID in addition to clopidogrel and statin. He was evaluated by ST with modified barium swallow - recommendations for pureed solids and mildly thick liquids ([place]) which he was tolerating well. He was re-ambulated with Physical therapy and requires use of front wheeled walker for long distance ambulation. He does attempt short distance ambulation without use of walker but is reaching for items in the room for upper extremity support. he requires verbal cues throughout for right upper extremity participation during strengthening exercises. It is felt he would benefit from continued lower extremity strengthening, balance and gait activities. He was seen by Dr Mane from neurology and per her note: an acute ischemic stroke manifested by expressive aphasia and acute on chronic dysarthria and dysphagia; secondary to atrial fibrillation; with a prior history of ischemic stroke due to small vessel disease. She agrees with addition of Eliquis for secondary stroke prevention. Assuming he was compliant with clopidgrel prior to December 2020 ischemic stroke, could consider switching clopidogrel to ticagrelor which was done prior to discharge. He will continue statin for secondary stroke prevention. case management has been following and referrals placed to acute rehab. He has been accepted at [facility] and will be transported by family. Home Meds and New Rx's Prescriptions: New ticagrelor 90 mg tablet 90 mg PO BID Qty: 60 RF: 0 Eliquis 5 mg Tablet 5 mg PO BID Qty: 60 RF: 0 metoprolol tartrate 25 mg Tablet 12.5 mg PO BID Qty: 60 RF: 0 Continued ipratropium-albuterol 0.5 mg-3 mg(2.5 mg base)/3 mL Solution For Nebulization 3 ml INHALATION Q6H PRNRF: 0 albuterol sulfate [Proventil HFA] 90 mcg/actuation Hfa Aerosol Inhaler 2 puff INHALATION .Q6HRS PRNRF: 0 budesonide [Pulmicort] 1 mg/2 mL Suspension For Nebulization 1 mg BID RF: 0 rosuvastatin 40 mg tablet 40 mg PO DAILY Qty: 30 RF: 0 Discontinued clopidogrel [Plavix] 75 MG tablet 75 mg PO DAILY Qty: 30 RF: 0 amlodipine 5 mg Tablet 5 mg PO DAILY RF: 0 ibuprofen 600 mg Tablet 600 mg PO TID PRNRF: 0 Discharge Instructions Instructions: Dysphagia (ED), Stroke (DC) Stand Alone Forms: Nursing Discharge Form Activity:: Activity as Tolerated Equipment/Supplies:: Walker Diet:: pureed thickened fluids, nectar thick Discharge Orders Discharge Orders: Discharge Order (Routine); Ordered 03/21/21 Ordered By: Korin Traylor Discharge Data Discharge Date/Time-TO BE ENTERED AT DEPARTURE: 03/21/21 13:58 DS: Summary Time Spent with Patient providing and/or coordinating discharge services: Greater than 30 minutes Status at Discharge Functional status at discharge: uses cane/walker Overall status at discharge: patient is progressing back to baseline Mental Status: mental status grossly normal Speech and Movement: other Mood: congruent mood Affect: normal affect Exam Psych Mental Status: mental status grossly normal Speech and Movement: other Mood: congruent mood Affect: normal affect DS: Data Vitals/I&O Vitals and I&O: Vital Signs Temperature 36.9 C 03/21/21 03:03 Temperature Source Tympanic 03/21/21 03:03 Pulse 95 H 03/21/21 03:03 Pulse Rhythm Regular 03/21/21 05:09 Pulse Strength Normal 03/14/21 20:25 Pulse 122 H 03/14/21 20:20 Respiratory Rate 19 03/21/21 03:03 Respiratory Effort Non-Labored 03/21/21 05:09 Respiratory Depth Normal 03/21/21 05:09 Respiratory Pattern Normal 03/21/21 05:09 Blood Pressure 140/94 H 03/21/21 03:03 Blood Pressure Mean 94 03/14/21 20:25 Blood Pressure Position Sitting 03/14/21 20:25 Pulse Oximetry 95 03/21/21 03:03 Oxygen Delivery Method Room Air 03/20/21 23:25 Oxygen Flow Rate 0 03/20/21 23:25 Pain Level 0 03/20/21 15:24 Comment 03/18/21 03:35 Intake & Output 03/20/21 03/20/21 03/21/21 11:59 23:59 11:59 Intake Total Output Total 900 / 1100 200 / 1100 Balance -880 / -1080 -200 / -1080 Intake: IV Output: Urine 900 / 1100 200 / 1100 Other: Urine Color Dark Sharon Light Sharon Yellow Urine Appearance Clear Clear Clear Urine Odor Normal Normal Stool Occult Blood Negative Stool Size Large Stool Characteristics Soft Formed Voiding Methods Toilet Toilet Data Completed and Pending Labs on day of discharge: Labs from last 24 hours 03/20/21 10:00 COVID-19 Source Nasal/Nares SARS-CoV-2 (PCR) Negative [facility] Medical History (Updated 03/20/21 @ 20:27 by Bere Mane MD) Atrial fibrillation CVA (cerebral vascular accident) HTN (hypertension) Surgical History complex laceration of left upper extremity (01/19/16) Family History Other Family history unobtainable due to patient's condition Social History Smoking/Tobacco Use Status: Never Smoking risk assessment performed?: Yes Alcohol Intake: former Drug use: Never Details: no alcohol for 30 yrs Do you feel safe at home: Yes Do you feel safe in your relationship?: Yes
--- NOTE | 2021-03-21 10:30 | PTTR_ITS ---
PT Notes Visit Reasons: Expressive Aphasia,Altered Mental Status 03/21/2021 SUBJECTIVE: No pain indicated throughout. Does point and request to use walker during today's treatment. May be fatigued today although pt indicates that he is not. OBJECTIVE: TRANSFERS Sit to stand: S Stand to sit: S GAIT Device: FWW Weight bearing: Full Assist: SBA Distance: 100'x2 Deviation: R path deviation, short shuffling gait pattern THEREX: See flow sheet. Balance re-training activities performed within parallel bars, small RITO tasks with dynamic UE movement patterns. LE strengthening bilaterally, R UE strengthening. See flow sheet for specifics. ASSESSMENT: Appears to be more fatigued today compared to yesterday and requires use of FWW for long distance ambulation. He does attempt short distance ambulation without use of walker but is reaching for items in the room for UE support. Requires verbal cues throughout for R LE participation during strengthening exercises. Pt will benefit from continued LE strengthening, balance and gait activities. PLAn: Continue current POC. Treatment time: 30 minutes [id number], [id number] La Connelly PTA Clinic location: [facility] [place], [place]
[2021-03-21] MEDS: Normal Saline Flush 10 ML SYR IVP (11:12)
[2021-03-21] MEDS: Pantoprazole 40 MG VIAL IVP (11:12)
[2021-03-21 12:32] VITALS: BP 90/60; PULSE 58; RESP 18; TEMP 36.9; O2SAT 96
--- NOTE | 2021-03-21 19:03 | PDOC.CMDIS ---
- If Service Date Differs Date of service: 03/21/21 Time of Service: 19:03 LACE Index Scoring Tool - Questions: Length of Stay (in days): 7 - 13 Acuity (Admit via E.D.?): Yes Comorbidities: Cerebrovascular Disease E.D. Visits: 3 - Answers: Total Score: 12 Risk of Readmission: High Risk Care Management Discharge Reason for Hospitalization: Expressive aphasia, AMS Discharge Plan: Sg was transferred to [facility] for acute rehab today. His son, Alvarez, drove him there via private vehicle. He will follow up with his PCP and discharge plan of care. His family intends on hiring help at home to care for him upon his discharge from rehab. He is agreeable to going to [facility]. Patient/Family Education Needs: Review discharge instructions, discussion of self care needs and goals of care. Services Needed at Discharge: Care Home Facility ([facility])
--- NOTE | 2021-03-22 09:06 | PT.INDS ---
Date of service: 03/22/21 PT Notes Visit Reasons: Expressive Aphasia,Altered Mental Status Physical Therapy Inpatient Discharge Summary Date: 03/22/2021 Dates of Service: 03/15/2021 through 03/22/2021 This is a clinical summary of care provided for the duration of dates listed above. No charge was made in the completion of this documentation. Referring Doctor: Tsering Ching MD PT Orders: PT CONSULT: Limited ability Precautions: Fall. Standard. Activity as tolerated. Right hemineglect. Expressive aphasia. Patient Profile/Admitting Diagnosis: Jaziel is an 80-year-old male with medical history significant for pontine CVA with expressive aphasia who presented to the ED on 03/15/2020 with altered mental status. Patient is diagnosed with altered mental status with suspected TIA versus CVA, expressive aphasia, ambulatory dysfunction, blood in stool. PMHX: Medical History Atrial fibrillation CVA (cerebral vascular accident) HTN (hypertension) Surgical History complex laceration of left upper extremity (01/19/16) Social History/Home Situation: Per chart review, lives with her 2 sons. Unable to fully extract home situation due to expressive aphasia. Said yes to using front wheel walker at home. Equipment Owned/DME: FWW, SPC Subjective: NT. See most recent UTILIZATION MANAGEMENT UM NURSE notes. Objective: General Observation: NT. See most recent UTILIZATION MANAGEMENT UM NURSE notes. Mental Status: NT. See most recent UTILIZATION MANAGEMENT UM NURSE notes. Pain: NT. See most recent UTILIZATION MANAGEMENT UM NURSE notes. Vital Signs: NT. See most recent UTILIZATION MANAGEMENT UM NURSE notes. ROM: Right Upper Extremity: Shoulder Flexion allows only about 90 degrees actively. Shoulder abduction only about 90 degrees actively. Elbow flexion WFL. Wrist flexion WFL. Functional opening and closing of hand WFL but with decreased speed compared to the left side. Left Upper Extremity: Shoulder Flexion allows only about 90 degrees actively. Shoulder abduction only about 90 degrees actively. Elbow flexion WFL. Wrist flexion WFL. Functional opening and closing of hand WFL. Right Lower Extremity: Hip flexion WFL. Hip abduction WFL. Knee flexion WFL. Ankle dorsiflexion WFL. Ankle plantarflexion WFL. Left Lower Extremity: Hip flexion WFL. Hip abduction WFL. Knee flexion WFL. Ankle dorsiflexion WFL. Ankle plantarflexion WFL. Strength: Right Upper Extremity: Shoulder flexors 3-/5. Shoulder abductors 3-/5. Elbow flexors 4/5. Elbow extensors 4/5. Hoe Worker strong. Left Upper Extremity: Shoulder flexors 3-/5. Shoulder abductors 3-/5. Elbow flexors 4/5. Elbow extensors 4/5. Hoe Worker strong. Right Lower Extremity: Hip flexors 4/5. Hip abductors 4/5. Knee flexors 5/5. Knee extensors 4/5. Ankle dorsiflexors 5/5. Ankle plantarflexors 5/5. Left Lower Extremity: Hip flexors 5/5. Hip abductors 5/5. Knee flexors 5/5. Knee extensors 5/5. Ankle dorsiflexors 5/5. Ankle plantarflexors 5/5. Bed Mobility/Transfers: Supine to sit with minimal assist Sit to stand from edge of bed with minimal assist. From bedside recliner contact-guard assist. Contact-guard assist Stand to sit with contact-guard assist Bed to reclining chair contact-guard assist GAIT Assistive Device: No assistive device Weight bearing: Full Assist: Standby assist Distance: 100 feet + 100 feet Deviation: No wheelchair follow needed. Continues to demonstrate mild hemiplegic gait with increased stance time on the right LE. Moderate cues given for improved environmental scanning to manage R hemineglect and visual impairment. Increased R stance time. No LOB but with mild path deviation with head turning. Balance: Static sitting: Normal Dynamic sitting: Good Static standing: Good Dynamic standing: Good THERA ACT: Facilitated functional activity of unassisted ambulation while inside parallel bars transferring weighted objects from higher surface from one side of the parallel bars onto a lower surface to another set of the parallel bars with simultaneous work on increasing right forward reach, right sideward reach, trunk and head rotation, dynamic standing balance and tolerance, B LE strengthening using 2.5 ankle weights, and right LE strengthening using varied weights. Also worked on increasing depth perception and kinesthetic awareness in B LE and right UE as well as posterior balance reactions/awareness while performing backing up activities inside parallel bars without UE support with 2.5 ankle weights. Balance: Static Sitting: Normal Dynamic Sitting: Fair Static Standing: Fair Dynamic Standing: Fair NEUROLOGIC TESTING: Rapid alternating movement: Impaired Coordination: R heel to reeder test impaired Awareness of R side: limited 4-stage Balance test: Unable to perform at this time Assessment: Progressing along excellently. Increasing strength to R LE and R UE. Improving environmental scanning skills. Increasing independence with mobility performance.Expressive/Broca's aphasia limiting patient responses. Comprehension intact. Disparity in strength with the right UE/LE more paretic. Motor planning and coordination in right UE and LE impaired. R hemineglect increases risk for falls at this time. Tends to lean to R and fatigue while seated on the chair. Patient continues to present with clinical signs and symptoms consistent with current/admitting diagnoses that have resulted to mobility limitations, gait instability, generalized weakness, and overall ADL decline as demonstrated by the following impairment level findings: 1. Decreased strength to B UE/LE major muscle groups with R UE/LE more affected than L UE/LE 2. Impaired sitting/standing balance 3. Impaired activity tolerance 4. Dysdiadochokinesia 5. Impaired gait pattern 6. Right sina-neglect Impairments are continuing to contribute to the following functional limitations: 1. Decline in bed mobility skills 2. Decline in transfer skills 3. Difficulty with ambulation without assistive device and physical assistance 4. Increased completion time for mobility ADL performance 5. Increased risk for falls 6. Difficulty with managing steps alone safely 7. Inability to safely thrive at home at this time Goals: Goals X1 week 1. Supine-Sit independent NOT MET 2. Sit-Supine independent NOT MET 3. Sit-Stand independent NOT MET 4. Stand-Sit independent with FWW NOT MET 5. Bed-Chair independent with FWW NOT MET 6. Chair-Bed independent with FWW NOT MET 7. Supervision gait on level surface with use of FWW for at least 300 feet without report of pain nor dyspnea NOT MET DISCHARGE RECOMMENDATIONS: To [facility] for continued acute rehab on 03/21/2021. TREATMENT CODE/TIME: MI Thank you for the opportunity to participate in the care of this patient. Amada Patterson PT, DPT, CLT [facility] [place], [place]
== END 2021-03-21 13:58 | disposition short-term general hospital (02) | DRG 65 ==
LOC: ER 16:14 → MS 20:41
PROVIDERS: Internal Medicine; Nurse Practitioner Acute Care; Nurse Practitioner Family; Physician Assistant; Admitting Provider Family Medicine; Emergency Provider Physician Assistant; PCP Physician Assistant Medical; Visit Provider Family Medicine
DX: I63.432 Cerebral infarction due to embolism of left posterior cerebral artery (principal); K92.1 Melena; I10 Essential (primary) hypertension; I48.91 Unspecified atrial fibrillation; Z79.02 Long term (current) use of antithrombotics/antiplatelets; I69.320 Aphasia following cerebral infarction; Z20.822 Contact with and (suspected) exposure to COVID-19; Z87.820 Personal history of traumatic brain injury; R47.1 Dysarthria and anarthria
CPT/HCPCS: 36415; 70544; 80048; 80053; 80061; 85027; 87635; 90662; 92526; 92610; 92611; 93005; 93308; 94640; 96360; 96361; 97110; 97162; 97166; 97530; 97535; 99223; 99291; J1650; 70450; 70551; 71046; 74221; 81003; 81015; 82607; 83036; 83735; 84443; 84484; 85025; 92523; 93010; 99232; 99233; 99239; J3490; J7608; J7613; J7620; J7626

== ENCOUNTER → 2021-03-20 13:47 | Outpatient (BNVA) | payer MEDICARE, SELFPAY ==
--- NOTE | 2021-03-21 14:13 | PTTR_ITS ---
PT Notes Visit Reasons: [facility] INPATIENT- Inpatient Physical Therapy Treatment Note [facility] Date: 03/21/21 PRECAUTIONS:Bracca's Aphasia R sina neglect SUBJECTIVE: Pt reports that he does not want to complete exercises this afternoon or walk with PT. OBJECTIVE: Sit-stand: SBA Stand-sit: SBA GAIT Assistive Device: FWW Weight bearing: Full Assist: SBA Distance: From the chair to the bathroom and back to the chair. ASSESSMENT: Pt expressed that he did not want to particiate in PT ambulation or exercises. PLAN: Cont as per PT POC as per tomas. TREATMENT CODE/TIME: 12:50-1:10 (20) TA
== END ==
PROVIDERS: PCP Physician Assistant Medical; Referring Provider Physician Assistant Medical; Visit Provider Psychiatry & Neurology Neurology
DX: R69 Illness, unspecified (principal)

== ENCOUNTER 2021-05-01 15:35 | Emergency (ER) | payer MEDICARE, SELFPAY ==
[2021-05-01] VITALS (30 sets, daily range): BP systolic 135–153; BP diastolic 68–93; PULSE 67–121; RESP 16–26; TEMP 36.5; O2SAT 90–97
[2021-05-01] MEDS: Lidocaine/Epinephri/Tetracaine Topical Gel 3 ML (16:00)
--- NOTE | 2021-05-01 16:38 | DI.CT_ITS ---
Exam(s) CT HEAD CERVICAL SPINE WO EXAM: CT HEAD CERVICAL SPINE WO CLINICAL HISTORY: fall, [place]. TECHNIQUE: Imaging Protocol: Axial computed tomography images with coronal and sagittal reformatted images were created and reviewed COMPARISON: CT CT BRAIN NECK CTA from 01/14/[address] HEAD - STROKE PROTOCOL from 03/14/2021 FINDINGS: CT Head: Ventricles and Extra axial spaces: Normal in size and morphology for the patient's age. Hemorrhage: None. Cerebral parenchyma: No evidence of an acute territorial infarct. There are areas of decreased atten uation in the white matter most consistent with small vessel ischemic disease. Midline shift: None. Brainstem/Cerebellum: Normal. Calvarium: Normal. Visualized Paranasal sinuses/Mastoids: Clear. Soft Tissues: Soft tissue swelling is seen over the vertex of the skull and overlying the left fronta l bone. CT Cervical Spine: Bones: There are nondisplaced fractures involving the right and left aspects of the posterior arch of C1. There is a horizontal fracture through the base of the odontoid. There is a fracture of the T3 vertebral body. This was not present on the CT scan of the neck from 01/14/2021. Soft Tissues: Unremarkable. Lung Apices: No focal consolidating infiltrate is seen in the lung apices. IMPRESSION: 1. No acute intracranial process. 2. Subcutaneous edema overlying the vertex of the skull and the left frontal bone. 3. Acute grade 2 odontoid fracture without evidence of central spinal canal stenosis. 4. Nondisplaced bilateral posterior arch C1 fractures. 5. T3 compression fracture which appears acute. RADIATION DOSE DELIVERED: 1,446.27mGy.cm Total DLP DATA REPOSITORY: All CT scans at this facility are submitted to the National Radiology Data Registry (NRDR) Dose Index Registry (DIR) with the [employer] (ACR). RADIATION OPTIMIZATION: All CT scans at this facility use at least one of these dose optimization te chniques: automated exposure control; mA and/or kV adjustment per patient size (includes targeted exa ms where dose is matched to clinical indication); or iterative reconstruction.
[2021-05-01 17:00] LABS: Abs Immature Grans 0.12 10^3/uL (0.0-0.06); Absolute Basophil Count 0.04 10^3/uL (0.0-0.2); Absolute Eosinophil Count 0.16 10^3/uL (0.0-0.7); Absolute Monocyte Count 0.63 10^3/uL (0.1-0.8); Absolute Neutrophil Count 6.26 10^3/uL (1.2-6.7); Basophils % 0.4; Eosinophils % 1.8; HCT 41.3 % (40.0-50.0); HGB 13.3 g/dL (13.5-17.5); Immature Grans % 1.3; Lymphocytes % 19.1; MCH 29.2 pg (27.0-33.0); MCHC 32.2 % (32.0-36.0); MCV 90.6 fL (80-95); Monocytes % 7.1; Neutrophils % 70.3; Nucleated RBC 0 %; Platelet Count 133 10^3/uL (130-400); RBC 4.56 10^6/uL (4.36-5.78); RDW 15.2 % (11.8-14.1); RDW-SD 50.8 fL; WBC 8.91 10^3/uL (4.4-10.8)
[2021-05-01 17:18] LABS: ALT 45 U/L (16-63); AST 32 U/L (15-37); Albumin 3.8 g/dL (3.4-5.0); Alkaline Phosphatase 100 U/L (46-116); Anion Gap 10.1 mmol/L (3-11); BUN 21 mg/dL (7-18); Bilirubin, Total 0.7 mg/dL (0.2-1.0); CO2 26.9 mmol/L (21.0-32.0); CREATININE 1.3 mg/dL (0.70-1.30); Calcium 8.5 mg/dL (8.5-10.1); Chloride 100 mmol/L (98-107); Estimated GFR 52.85 (mL/min/1.73m2); Glucose 117 mg/dL (74-106); Magnesium 2.1 mg/dL (1.8-2.4); Potassium 3.5 mmol/L (3.5-5.1); Sodium 137 mmol/L (136-145); Total Protein 7.1 g/dL (6.4-8.2)
--- NOTE | 2021-05-01 17:40 | ED.GENADUL_ITS ---
Discharge Plan Disposition Patient Disposition: [facility] Condition: Critical Discharge Details Clinical Impression: C1 cervical fracture, C2 cervical fracture, Closed T3 fracture, Closed T5 fracture, Complex laceration of scalp, Laceration of oral cavity Primary Care Provider: Kathy Cardoza ED Provider: Laura Stock Home Meds and New Rx's Prescriptions: Continued rosuvastatin 40 mg tablet 40 mg PO DAILY Qty: 30 RF: 0 Eliquis 5 mg Tablet 5 mg PO BID Qty: 60 RF: 0 metoprolol tartrate 25 mg Tablet 12.5 mg PO BID Qty: 60 RF: 0 clopidogrel 75 mg tablet 75 mg PO DAILY RF: 0 pantoprazole 40 mg tablet,delayed release (DR/EC) 40 mg PO DAILY RF: 0 melatonin 5 mg Tablet 5 mg PO .QHS RF: 0 Medical Decision Making <RANDI López - Last Filed: 05/01/21 23:23> This 80-year-old gentleman who is 5 weeks status post CVA, normal-appearing diagnostic lab, CT scan were ordered given mechanism and anticoagulation on Eliquis I did discuss with Dr. Jackson, virtual radiologist regarding C1 and C2 fractures both of which are unstable Patient is in a cervical collar, I will transition to a [facility], this was transitioned with the assistance of approximately 5 staff members and C-spine was maintained Call was subsequently placed to [facility] and patient was accepted by trauma, Dr. Palencia Patient remains neurologically intact, he does have dysphasia this is not changed Patient had 8 sutures placed by me secondary to bleeding scalp laceration and TXA was applied topically with pressure dressing Initially for intraoral injury I saw small anterior tongue laceration, however secondary to persistent bleeding, I did attempt to investigate further with collar in place and did notice a large laceration to patient's right buccal mucosa, this was noted upon EMS arrival I did place Surgicel in the area, pressure, TXA, we did suction and patient is maintaining his airway I do not feel comfortable closing this wound at this time given patient's unstable cervical spine fracture and need to maintain cervical spine I will defer this to [facility] who is accepted this patient Patient is agreeable to transportation at this time Son is agreeable to transportation at this time EKG shows rate controlled atrial fibrillation Medical Records Medical records reviewed: Yes I reviewed the patient's medical records. Lab Data Lab results reviewed: Yes I reviewed the patient's lab results. <Olu Hayes MD - Last Filed: 05/01/21 19:41> Patient seen, examined and discussed with Ms. Stock. I agree with her assessment and plan including consultation with trauma surgery for transfer. HPI <RANDI López - Last Filed: 05/01/21 23:23> General Mode of arrival: ambulatory . Date/Time Provider Initiated Documentation: 05/01/21 15:53 . Limitations to Documentation: no limitations . Information obtained by: patient . HPI Narrative: 80-year-old gentleman with history of CVA, expressive aphasia, A. fib, anticoagulated on Eliquis presents status post fall. Patient reportedly fell down several stairs. He went down on his back. He did not reportedly lose consciousness. They did not move patient and he had no pain complaints after fall. He had a large laceration reportedly. His tetanus is reportedly up-to-date. Of note, states that patient had a CVA approximately 2 weeks ago and was hospitalized. he is anticoagulated on Eliquis for history of atrial fibrillation, did take his dose today. History obtained from family secondary to dysphasia, this is baseline from a stroke reportedly. Related Data Home Medications Medication Instructions Recorded Confirmed rosuvastatin 40 mg PO DAILY #30 tab 01/15/21 05/01/21 Eliquis 5 mg PO BID #60 tab 03/21/21 05/01/21 metoprolol tartrate 12.5 mg PO BID #60 tab 03/21/21 05/01/21 clopidogrel 75 mg PO DAILY 05/01/21 05/01/21 melatonin 5 mg PO .QHS 05/01/21 05/01/21 pantoprazole 40 mg PO DAILY 05/01/21 05/01/21 Previous Rx's Medication Instructions Recorded rosuvastatin 40 mg PO DAILY #30 tab 01/15/21 Eliquis 5 mg PO BID #60 tab 03/21/21 metoprolol tartrate 12.5 mg PO BID #60 tab 03/21/21 Allergies Allergy/AdvReac Type Severity Reaction Status Date / Time Penicillins Allergy Severe per pcp Unverified 05/01/21 15:50 office aspirin AdvReac Intermediate Skin Rash Unverified 05/01/21 15:50 atenolol AdvReac Intermediate fatigue Unverified 05/01/21 15:50 atorvastatin calcium AdvReac Mild itch Unverified 05/01/21 15:50 [From Lipitor] General Stated Complaint: Trauma LAUREANO: 2 Review of Systems <RANDI López - Last Filed: 05/01/21 23:23> Unobtainable due to mental status PFSH <RANDI López - Last Filed: 05/01/21 23:23> Active Problem List (Updated 05/01/21 @ 23:22 by RANDI López) C1 cervical fracture (Acute) C2 cervical fracture (Acute) Closed T3 fracture (Acute) Closed T5 fracture (Acute) Complex laceration of scalp (Acute) Laceration of oral cavity (Acute) Expressive aphasia (Acute) Dysphagia (Acute) CVA (cerebral vascular accident) (Acute) Discharge planning issues (Acute) DVT prophylaxis (Acute) Blood in stool (Acute) Ambulatory dysfunction (Acute) HTN (hypertension) (Chronic) Expressive aphasia (Acute) Altered mental status (Acute) complex laceration (Acute) Concussion (Acute) Medical History (Updated 05/01/21 @ 23:22 by RANDI López) Atrial fibrillation Surgical History complex laceration of left upper extremity (01/19/16) Family History Other Family history unobtainable due to patient's condition Social History Smoking/Tobacco Use Status: Never Smoking risk assessment performed?: Yes Alcohol Intake: former Drug use: Never Details: no alcohol for 30 yrs Do you feel safe at home: Yes Do you feel safe in your relationship?: Yes Exam <RANDI López - Last Filed: 05/01/21 23:23> Const General: cooperative and frail appearing Orientation: alert Other: Follows all basic commands [facility] Head images: 1. 2 inch laceration noted 2. Abrasions noted Throat image: 1. Buccal laceration, widespread dental decay Small laceration to the tip of tongue, approximately 1 cm Other: Maintaining airway, uvula midline, no jaw tenderness Eyes Pupils: PERRL Neck Other: Cervical collar in place Chest Other: Nontender, old clavicle fracture Resp Effort & Inspection: normal respiratory effort Auscultation: clear to auscultation bilaterally Cardio Rate: regular rate Rhythm: regular rhythm GI Other: Nontender abdominal exam Back/Spine/Pelvis Other: No visible sign of trauma, specifically no thoracic or midline back tenderness Skin Other: Numerous areas of abrasion, left upper extremity Neuro General: patient alert Other: Strength and sensation appear to be intact distally Bilateral hand grasp intact, Distal pulses intact all 4 extremities GCS 15 Course <RANDI López - Last Filed: 05/01/21 23:23> Vital Signs Vital signs: Vital Signs Respiratory Rate 26 H 05/01/21 15:40 Pulse Oximetry 93 05/01/21 15:40 Temperature 36.5 C 05/01/21 15:43 Temperature Source Skin 05/01/21 15:43 Pulse 103 H 05/01/21 16:45 Pulse 92 H 05/01/21 16:45 Respiratory Rate 21 05/01/21 16:45 Respiratory Effort Non-Labored 05/01/21 16:32 Respiratory Depth Normal 05/01/21 16:32 Respiratory Pattern Normal 05/01/21 16:32 Blood Pressure 138/82 05/01/21 16:45 Blood Pressure Mean 95 05/01/21 16:45 Blood Pressure Position Supine 05/01/21 15:43 Pulse Oximetry 92 05/01/21 16:45 Oxygen Delivery Method Room Air 05/01/21 15:43 Oxygen Flow Rate 0 05/01/21 15:43 Pain Level 8 05/01/21 15:43 Lab/Test Results Lab/Test Results: Laboratory Tests Range/Units 05/01/21 15:50 WBC (4.4-10.8) 10^3/uL 8.91 RBC (4.36-5.78) 10^6/uL 4.56 Hgb (13.5-17.5) g/dL 13.3 L Hct (40.0-50.0) % 41.3 MCV (80-95) fL 90.6 MCH (27.0-33.0) pg 29.2 MCHC (32.0-36.0) % 32.2 RDW (11.8-14.1) % 15.2 H Plt Count (130-400) 10^3/uL 133 MPV (8.0-11.0) fL Immature Gran % 1.3 Neutrophils % 70.3 Lymphocytes % 19.1 Monocytes % 7.1 Eosinophils % 1.8 Basophils % 0.4 Nucleated RBC % % 0 Absolute Neutrophils (1.2-6.7) 10^3/uL 6.26 Absolute Lymphocytes (1.2-3.4) 10^3/uL 1.70 Absolute Monocytes (0.1-0.8) 10^3/uL 0.63 Absolute Eosinophils (0.0-0.7) 10^3/uL 0.16 Absolute Basophils (0.0-0.2) 10^3/uL 0.04 Procedures <RANDI López - Last Filed: 05/01/21 23:23> Laceration Laceration 1: Site: scalp Size (cm): 6 Description: irregular Local Anesthetic: Lidocaine 1% and with Epi Amount of anesthesia used (mL): 6 Pre-repair: wound explored and irrigated extensively Skin layer closed with: nylon Size (cm): 4-0 Number of sutures: 8 Technique: simple, interrupted Critical Care Time <RANDI López - Last Filed: 05/01/21 23:23> Critical Care Time Critical Care Time: Yes Total Critical Care Time: 60 Attestation: Telemetry monitoring, diagnostic labs, trauma surgery patient, repeat neurological assessment , diagnostic CT imaging, suture placement,
[2021-05-01 17:45] LABS: Troponin I < 0.05 ng/mL (<0.06)
--- NOTE | 2021-05-01 18:00 | DI.RAD_ITS ---
Exam(s) XR HAND LT COMPLETE EXAM: XR HAND LT COMPLETE CLINICAL HISTORY: pain, fall. TECHNIQUE: 2D digital imaging was performed of the left hand. Three views were obtained. AP, later al and oblique views were obtained. COMPARISON: No exams were available for comparison FINDINGS: BONES: No acute fracture is present. No bony destructive lesion is seen. JOINTS: No dislocation present. Severe degenerative changes are seen in the hand and wrist. SOFT TISSUE: There is a metallic 2-3 mm fragment in the soft tissues posterior to the 5th MCP joint. IMPRESSION: No acute fracture or dislocation. DATA REPOSITORY: RADIATION DOSE DELIVERED:
--- NOTE | 2021-05-01 18:00 | DI.RAD_ITS ---
Exam(s) XR FOREARM LT EXAM: XR FOREARM LT CLINICAL HISTORY: pain,fall. TECHNIQUE: 2D digital imaging was performed of the left forearm. Views were obtained. AP and late ral views were obtained. COMPARISON: CR LEFT ELBOW COMPLETE from 01/19/2016 FINDINGS: BONES: No acute fracture is present. No bony destructive lesion is seen. Visualized portion of elbow and wrist joints are unremarkable. The bones appear osteopenic. SOFT TISSUE: Normal. There is a 3 mm metallic density in the soft tissues anterior to the midshaft of the radius. IMPRESSION: No acute fracture or dislocation. DATA REPOSITORY: RADIATION DOSE DELIVERED:
--- NOTE | 2021-05-01 18:31 | DI.VRAD_ITS ---
PROCEDURE INFORMATION: Exam: CT Chest With Contrast; Diagnostic Exam date and time: 05/01/2021 4:40 PM Age: 80 years old Clinical indication: Other: Back and chest pain, on eliquis, fall TECHNIQUE: Imaging protocol: Diagnostic computed tomography of the chest with contrast. Contrast material: OMNIPAQUE 350; Contrast volume: 100 ml; Contrast route: INTRAVENOUS (IV); COMPARISON: CT CHEST W 12/07/2020 3:20 PM FINDINGS: Lungs: Dependent atelectasis in both lungs. Pleural spaces: Unremarkable. No pneumothorax. No pleural effusion. Heart: Coronary artery calcifications. Mild cardiomegaly. Aorta: Aortic calcifications. Lymph nodes: Unremarkable. No enlarged lymph nodes. Bones/joints: Degenerative arthritis in the shoulders and spine. Old fracture of the medial left clavicle. Acute appearing compression fracture of the T3 vertebral body. Loss of height of approximately 25%. No retropulsed fragments. This fracture is new since the chest CT of 12/07/2020. There is also slight compression of the superior endplate of T5 which is also new and likely acute. Soft tissues: Unremarkable. Other findings: Images are degraded by motion. IMPRESSION: 1. Acute appearing mild compression fractures of T3 and T5 2. Old fracture of the medial left clavicle 3. Dependent atelectasis in the posterior lungs. PROCEDURE INFORMATION: Exam: CT Abdomen And Pelvis With Contrast Exam date and time: 05/01/2021 4:40 PM Age: 80 years old Clinical indication: Other: Back and chest pain, on eliquis, fall TECHNIQUE: Imaging protocol: Computed tomography of the abdomen and pelvis with contrast. Contrast material: OMNIPAQUE 350; Contrast volume: 100 ml; Contrast route: INTRAVENOUS (IV); COMPARISON: CT CHEST W 12/07/2020 3:20 PM FINDINGS: Liver: Normal. No mass. Gallbladder and bile ducts: Cholelithiasis. Pancreas: Normal. No ductal dilation. Spleen: Normal. No splenomegaly. Adrenal glands: Normal. No mass. Kidneys and ureters: Benign 5 cm cyst in the right kidney. Stomach and bowel: Surgical clips along the posterior gastric cardia. Bulky diverticulosis of the colon. No evidence of diverticulitis Appendix: No evidence of appendicitis. Intraperitoneal space: Unremarkable. No free air. No significant fluid collection. Vasculature: Vascular calcifications. No abdominal aortic aneurysm. Lymph nodes: Unremarkable. No enlarged lymph nodes. Urinary bladder: Unremarkable as visualized. Reproductive: Prostate calcifications. Bones/joints: Anterior plate and screw fixation and bone graft fusion of the pubic symphysis. Degenerative arthritis in the spine and pelvis. Sclerosis of the bilateral sacral ala suspicious for insufficiency fractures. These are age indeterminate. Soft tissues: Unremarkable. Other findings: Images are degraded by motion. IMPRESSION: 1. Sclerosis of the bilateral sacral ala, likely insufficiency fractures, age indeterminate 2. Cholelithiasis. 3. Diverticulosis without evidence of diverticulitis 4. Images are degraded by motion Dictated and Authenticated by: Loni Pittman MD. Ordering:ANGEL Sanchez MD
--- NOTE | 2021-05-01 18:37 | DI.VRAD_ITS ---
PROCEDURE INFORMATION: Exam: XR Left Forearm Exam date and time: 05/01/2021 6:09 PM Age: 80 years old Clinical indication: Other: Pain, fall; Additional info: Back and chest pain, on eliquis, fall TECHNIQUE: Imaging protocol: XR Left forearm. Views: 2 views. COMPARISON: CR LEFT ELBOW COMPLETE 01/19/2016 6:24 PM FINDINGS: Bones/joints: The bones are demineralized. No fracture identified. Advanced degenerative arthritis in the left wrist. Soft tissues: Tiny metallic fragment projects in the volar soft tissues of the mid forearm. Soft tissue calcification per section the dorsal aspect of the distal forearm. IMPRESSION: No acute findings Dictated and Authenticated by: Loni Pittman MD. Ordering:ANGEL Sanchez MD
--- NOTE | 2021-05-01 18:38 | DI.VRAD_ITS ---
PROCEDURE INFORMATION: Exam: XR Left Hand Exam date and time: 05/01/2021 6:09 PM Age: 80 years old Clinical indication: Other: Pain, fall; Additional info: Back and chest pain, on eliquis, fall TECHNIQUE: Imaging protocol: XR Left hand. Views: 3 or more views. COMPARISON: CR XR FOREARM LT 05/01/2021 6:20 PM FINDINGS: Bones/joints: Severe degenerative arthritis in the STT joint. Milder degenerative arthritis of the remainder of the left hand, mostly involving IP joints. No fracture identified. Soft tissues: Tiny metallic fragment projects in the soft tissues dorsal to the 5th MCP joint IMPRESSION: No acute findings Dictated and Authenticated by: Loni Pittman MD. Ordering:ANGEL Sanchez MD
[2021-05-01] MEDS: Normal Saline Flush 10 ML SYR IVP (19:01)
[2021-05-01] MEDS: Omnipaque 350 MG/ML 100 ML BTL IV (19:01)
--- NOTE | 2021-05-01 19:08 | DI.VRAD_ITS ---
PROCEDURE INFORMATION: Exam: CT Head Without Contrast Exam date and time: 05/01/2021 4:47 PM Age: 80 years old Clinical indication: Fall, hi TECHNIQUE: Imaging protocol: Computed tomography of the head without contrast. Radiation optimization: All CT scans at this facility use at least one of these dose optimization techniques: automated exposure control; mA and/or kV adjustment per patient size (includes targeted exams where dose is matched to clinical indication); or iterative reconstruction. COMPARISON: MR BRAIN WO 03/15/2021 11:41 AM FINDINGS: Brain: There is no acute intracranial hemorrhage, mass effect or midline shift. No large acute territorial infarct identified. There are patchy regions of hypodensity in the periventricular and subcortical white matter, likely on the basis of chronic microvascular ischemic disease. Cerebral ventricles: The ventricles and sulci are prominent in size, which is at least in part due to global cerebral volume loss. Paranasal sinuses: Visualized sinuses are unremarkable. No fluid levels. Mastoid air cells: Visualized mastoid air cells are well aerated. Bones/joints: Unremarkable. No acute fracture. Soft tissues: There is subcutaneous soft tissue edema and laceration at the vertex and left frontal region. IMPRESSION: 1. No acute intracranial hemorrhage, mass effect or midline shift. 2. Subcutaneous edema and laceration likely related to trauma. No underlying calvarial fracture. PROCEDURE INFORMATION: Exam: CT Cervical Spine Without Contrast Exam date and time: 05/01/2021 4:47 PM Age: 80 years old Clinical indication: Other: Fall, hi TECHNIQUE: Imaging protocol: Computed tomography images of the cervical spine without contrast. Radiation optimization: All CT scans at this facility use at least one of these dose optimization techniques: automated exposure control; mA and/or kV adjustment per patient size (includes targeted exams where dose is matched to clinical indication); or iterative reconstruction. COMPARISON: MR BRAIN WO 03/15/2021 11:41 AM FINDINGS: Bones/joints: There is a horizontal lucency at the base of the odontoid process, consistent with a grade 2 odontoid fracture.There are nondisplaced fractures at the left and right posterior arch of C1. There is a compression fracture in the T3 vertebral body which may be acute or chronic in nature. A focus of sclerosis in the C1 vertebral body may represent a bone island. Discs/Spinal canal/Neural foramina: No significant retropulsion into the spinal canal. Lungs: Interstitial septal thickening in the lung apices noted. Soft tissues: Unremarkable. IMPRESSION: 1. Acute grade 2 odontoid fracture without evidence of spinal canal stenosis. 2. Bilateral posterior arch C1 fractures which are nondisplaced, likely acute. 3. T3 compression fracture which may be acute or chronic in nature. Correlate with point tenderness in this region. 4. THIS REPORT CONTAINS FINDINGS THAT MAY BE CRITICAL TO PATIENT CARE. The findings were verbally communicated via telephone conference with Laura Stock at 6:48 PM EST on 05/01/2021. The findings were acknowledged and understood. Dictated and Authenticated by: Romina Cho MD. Ordering:ANGEL Sanchez MD
--- NOTE | 2021-05-01 19:21 | DI.CT_ITS ---
Exam(s) CT CHEST/ABD/PEL W CT THORACIC LUMBAR SPINE REC EXAM: CT CHEST/ABD/PEL W and CT reconstructions of the thoracic and lumbar spine. CLINICAL HISTORY: back and chest pain, on eliquis, fall TECHNIQUE: Imaging Protocol: Axial computed tomography images with coronal and sagittal reformatted images were created and reviewed CONTRAST MATERIAL: Intravenous: Omnipaque 350 Contrast volume:100 mL Oral: No COMPARISON: CT ABD PELVIS WITH CONTRAST from 06/30/2012 CT ABD PELVIS WITH CONTRAST from 06/30/[address] CHEST PE CTA from 02/08/[address] CHEST PE CTA from 02/08/[address] CHEST W from 12/07/[address] CHEST W from 12/07/[address] BRAIN NECK CTA from 01/14/[address] THORACIC LUMBAR SPINE REC from 05/01/[address] THORACIC LUMBAR SPINE REC from 05/01/2021 FINDINGS: The examination is limited due to patient motion artifact. CHEST: Tracheobronchial tree: Patent where visualized. Pulmonary parenchyma: Interstitial thickening in the lung apices. Dependent atelectasis in the lung bases. Visualized thyroid gland: Unremarkable. Mediastinum and Neeta: No dominant adenopathy or fluid collection. Calcified lymph nodes in the medias tinum. The esophagus is unremarkable. Pleura: No effusion or pneumothorax. Heart: Mild cardiomegaly. Coronary artery calcifications. No pericardial effusion. Pulmonary arteries: Pulmonary arteries are not adequately opacified for evaluation of pulmonary embol i. Aorta: Thoracic aorta non-dilated. Atherosclerosis. Lymph nodes: Within normal limits. Soft tissues: Unremarkable. Bones:Findings of an old left clavicular fracture. Moderate degenerative changes of the left glenohu meral joint. Thoracic spine recons: There is a compression fracture deformity of T3 which was not present on the C T scan from 12/07/2020. There is also mild depression of the superior endplate of T4 which is new sin ce the prior examination. Mild compression fracture of the superior aspect of the T5 vertebra is als o noted which appears acute. Multilevel degenerative changes are seen throughout the thoracic spine. ABDOMEN: Liver: Normal density. No measurable mass. Portal, Superior Mesenteric, and Splenic Veins: Unremarkable. Gallbladder and Biliary Tract: Cholelithiasis. No biliary ductal dilatation. Pancreas: Normal density, no abnormal calcifications or inflammatory process. Spleen: Normal. Adrenals: No masses seen. Kidneys: Normal size, contour and axis. No radiodense stones or obstructive uropathy. Simple right re nal cysts. No follow-up is recommended. Abdominal Aorta: Abdominal portion non-dilated. Atherosclerosis. Bowel: No obstruction or bowel wall thickening. No evidence of appendicitis. Sigmoid diverticulosis, but no evidence of acute diverticulitis. Peritoneal Cavity: No ascites, collection or mesenteric inflammatory response. No free air. Lymph Nodes: Within normal limits. Bones: Postsurgical changes are seen at the symphysis pubis. Degenerative changes are seen throughou t the lumbar spine. Sclerotic areas are seen in the sacral ala bilaterally suspicious for insufficie ncy fractures of indeterminate age. Soft Tissues: Unremarkable. Lumbar spine recons: There is a depression of the superior endplate of L4 which was not present on th e CT scan from 06/30/2012. Moderately severe degenerative changes are seen throughout the lumbar spine . PELVIS: Bladder: Symmetric distention, no gross wall thickening. Reproductive Organs: Unremarkable as visualized. Lymph Nodes: Within normal limits. Bones: Please see above. IMPRESSION: 1. Acute fractures involving the T3, T4 and T5 vertebral bodies. 2. Dependent atelectasis in the lungs. 3. No evidence of abdominal or pelvic organ injury. 4. This of the sacral ala bilaterally likely reflecting insufficient fractures of indeterminate age. 5. Additional findings in the abdomen and pelvis as described above which are nonacute. 6. Age-indeterminate depression of the superior endplate of L4. RADIATION DOSE DELIVERED: 1,205.27mGy.cm Total DLP DATA REPOSITORY: All CT scans at this facility are submitted to the National Radiology Data Registry (NRDR) Dose Index Registry (DIR) with the [employer] ([employer]). RADIATION OPTIMIZATION: All CT scans at this facility use at least one of these dose optimization te chniques: automated exposure control; mA and/or kV adjustment per patient size (includes targeted exa ms where dose is matched to clinical indication); or iterative reconstruction.
--- NOTE | 2021-05-01 19:30 | RT.EKG_ITS ---
APPROVED REPORT Exam: Resting ECG Reason for Exam: trauma Patient Location: E HR:95 bpm ECG Measurements Heart Rate 95 AXIS W[place] [id number] P [id number] QRSd 90 QRS 21 QT 361 T 13 QTc 454 Conclusion Atrial fibrillation...V-rate 68-112, irreg A-activity
[2021-05-01] MEDS: Ondansetron 4 MG/2 ML VIAL IVP (19:34)
[2021-05-01] MEDS: Cellulose,Oxidized 2X3 PKT 1 EACH MC (20:11)
[2021-05-01] MEDS: Tranexamic Acid 1,000 MG/10 ML VIAL 500 MG NS (20:12)
--- NOTE | 2021-05-01 20:31 | DI.VRAD_ITS ---
PROCEDURE INFORMATION: Exam: CT Thoracic Spine Without Contrast Exam date and time: 05/01/2021 7:27 PM Age: 80 years old Clinical indication: Injury or trauma; Blunt trauma (contusions or hematomas); Injury date: 05/01/21; Patient HX: Back and chest pain, on eliquis, fall TECHNIQUE: Imaging protocol: Computed tomography images of the thoracic spine without contrast. Radiation optimization: All CT scans at this facility use at least one of these dose optimization techniques: automated exposure control; mA and/or kV adjustment per patient size (includes targeted exams where dose is matched to clinical indication); or iterative reconstruction. COMPARISON: 1. CT HEAD CERVICAL SPINE WO 05/01/2021 5:[address] CHEST W 12/07/2020 3:20:55 PM FINDINGS: Vertebrae: Fracture noted at T3, with 34% loss of height. There is 3 mm retropulsion. Fracture extends through the spinous process. The spine is rigid at this level, with fusion of the T2-T3 facet joints. The T2 and T3 facet articular processes are intact without fracture. Compression fracture of the T5 vertebral body is noted superiorly. Anterior loss of height 11%. There is no retropulsion. The T5 pedicles, lamina, and spinous process are intact without fracture. Endplate depressions at T8 are unchanged from November 2020. There are no other fractures observed in the thoracic spine. Severe degenerative changes are noted in the cervical spine. Discs/Spinal canal/Neural foramina: No significant spinal canal stenosis. Neural foraminal narrowing T3-T4 and T4-T5, severe at the right T4-T5 level, unrelated to the trauma. Soft tissues: Please see CT chest dictated earlier. IMPRESSION: 1. Unstable nondisplaced 3-column fracture at T3. 2. Stable mild compression fracture at T5. PROCEDURE INFORMATION: Exam: CT Lumbar Spine Without Contrast Exam date and time: 05/01/2021 7:27 PM Age: 80 years old Clinical indication: Injury or trauma; Blunt trauma (contusions or hematomas); Injury date: 05/01/21; Patient HX: Back and chest pain, on eliquis, fall TECHNIQUE: Imaging protocol: Computed tomography images of the lumbar spine without contrast. Radiation optimization: All CT scans at this facility use at least one of these dose optimization techniques: automated exposure control; mA and/or kV adjustment per patient size (includes targeted exams where dose is matched to clinical indication); or iterative reconstruction. COMPARISON: CT HEAD CERVICAL SPINE WO 05/01/2021 5:51 PM FINDINGS: Vertebrae: No acute fracture. Normal alignment. Surgical hardware noted at the symphysis pubis, partially visualized. Discs/Spinal canal/Neural foramina: Severe multilevel degenerative disc disease and facet arthropathy. Chronic depression Schmorl's node at L4. Mild spinal canal stenosis L2-L3. Moderate multilevel neural foraminal narrowing. Soft tissues: Unremarkable. IMPRESSION: No acute fractures observed in the lumbar spine. Dictated and Authenticated by: Doe Lopez MD. Ordering:ANGEL Sanchez MD
== END 2021-05-01 20:10 | disposition short-term general hospital (02) ==
PROVIDERS: Emergency Provider Physician Assistant; PCP Physician Assistant Medical
DX: S12.112A Nondisplaced Type II dens fracture, initial encounter for closed fracture (principal); S12.031A Nondisplaced posterior arch fracture of first cervical vertebra, initial encounter for closed fracture; S22.030A Wedge compression fracture of third thoracic vertebra, initial encounter for closed fracture; S22.048A Other fracture of fourth thoracic vertebra, initial encounter for closed fracture; S50.812A Abrasion of left forearm, initial encounter; S22.050A Wedge compression fracture of T5-T6 vertebra, initial encounter for closed fracture; S60.512A Abrasion of left hand, initial encounter; S01.01XA Laceration without foreign body of scalp, initial encounter; S01.512A Laceration without foreign body of oral cavity, initial encounter; W10.8XXA Fall (on) (from) other stairs and steps, initial encounter; Z79.01 Long term (current) use of anticoagulants
CPT/HCPCS: 12002; 36415; 74177; 80053; 86850; 86900; 86901; 93005; 96374; 96375; 99291; 70450; 71260; 72125; 73090; 73130; 83735; 84484; 85025; 93010; J0131; J2405; J3490